=== PATIENT | female | born 1940 | race Caucasian/White ===

== ENCOUNTER 2016-06-27 16:16 | Observation (INO) | payer MEDICARE, BC ==
[2016-06-27 16:36] LABS: Hematocrit 44 % (35-47); Hemoglobin 14.3 g/dl (12.0-16.0); Mean Corpuscular HGB Conc 33 g/dl (31-36); Mean Corpuscular Hemoglobin 30 pg (27-31); Mean Corpuscular Volume 93 fL (80-97); Mean Platelet Volume 8 um3 (7.4-10.4); Red Blood Count 4.74 10^6/ul (4.0-5.4); Red Cell Distribution Width 14 % (10.5-15); White Blood Count 7.9 10^3/ul (3.5-10.8)
[2016-06-27 16:38] LABS: Add Diff/Slide Review? Manual Diff Added; Comments Flag Yes
--- NOTE | 2016-06-27 16:40 | RAD ---
HISTORY: Neurological changes COMPARISONS: January 09, 2015 TECHNIQUE: Multiple contiguous axial CT scans were obtained of the head without intravenous contrast. FINDINGS: HEMORRHAGE/INFARCT: There is no hemorrhage or acute infarct. MASSES/SHIFT: There is no mass or shift. EXTRA-AXIAL SPACES: There are no extra-axial fluid collections. SULCI AND VENTRICLES: The sulci and ventricles are normal in size and position for the patient's stated age. CEREBRUM: There are chronic appearing lacunar infarcts of the left basal ganglia BRAINSTEM: There are no focal parenchymal abnormalities. CEREBELLUM: There are no focal parenchymal abnormalities. VESSELS: The vessels are grossly normal. PARANASAL SINUSES: The paranasal sinuses are clear. ORBITS: The orbits are unremarkable. BONES AND SOFT TISSUE: No bone or soft tissue abnormalities are noted. OTHER: None IMPRESSION: NO ACUTE INTRACRANIAL PATHOLOGY. CHRONIC SMALL VESSEL ISCHEMIC CHANGES. PRELIMINARY FINDINGS WERE DISCUSSED WITH DR. CANSECO IN THE EMERGENCY DEPARTMENT AT APPROXIMATE 4:37 PM ON JUNE 27, 2016.
[2016-06-27 16:52] LABS: Albumin 3.8 g/dL (3.2-5.2); BUN/Creatinine Ratio 19.8 (8-20); Calcium 9.2 mg/dL (8.6-10.3); EGFR African American 82.3 (>60); Globulin 3.3 g/dL (2-4); HDL Cholesterol 71.1 mg/dL; Total Bilirubin 0.5 mg/dL (0.2-1.0); Total Protein 7.1 g/dL (6.4-8.9)
[2016-06-27 16:53] LABS: Troponin I 0.01 ng/mL (<0.04)
[2016-06-27 16:56] LABS: Eosinophils % 2 % (0-6); Neutrophil % 62 % (38-83); Reactive Lymph % 2 % (0-6)
[2016-06-27 16:57] LABS: RBC Morphology Normal (Normal)
[2016-06-27 16:59] LABS: Potassium 4.1 mmol/L (3.5-5.0)
[2016-06-27] MEDS ORDERED: Iohexol 350* (CONTRAST) 500 ML MDV IV ONE (17:09)
--- NOTE | 2016-06-27 17:34 | RAD ---
Indication: Slurred speech, LEFT arm numbness. Code forrest. Comparison: January 20, [address] and January 18, 2015 chest radiograph. Technique: Upright AP 1701 hours Report: Elevated lung volumes with both mild coarsening and rarefaction of the interstitial markings. No alveolar consolidation, focal pulmonary lesion, pleural effusion, pneumothorax. Negative for cardiomegaly. Unremarkable central pulmonary vasculature. Mildly tortuous descending thoracic aorta. IMPRESSION: Stigmata of chronic obstructive pulmonary disease. No acute cardiopulmonary process evident.
--- NOTE | 2016-06-27 17:49 | RAD ---
INDICATION: Episode of LEFT arm weakness and difficulty with speech. COMPARISON: Noncontrast head CT of the same date. TECHNIQUE: Multidetector CT images were obtained from the aortic arch to the vertex of the head with 80 mL Omnipaque 350 IV contrast. Arterial phase of enhancement. Multiplanar reformation including maximum intensity projection. 3-D arterial volume rendering. Stenosis estimations based on denominator of distal arterial diameter. NECK ANGIOGRAM REPORT: Centrilobular emphysema at the visualized lung apices. Normal configuration of the branch vessels at the aortic arch. Calcific and noncalcific plaque results in approximate 30% short segment stenosis at the ostium of the LEFT subclavian artery. Calcific and noncalcific plaque results in approximate 50% ostial stenosis at the RIGHT external carotid artery. Negative for hemodynamic significant RIGHT internal carotid artery stenosis. Minimal calcific and noncalcific plaque at the LEFT carotid bifurcation and proximal internal carotid artery without hemodynamic significant stenosis resulting. Tortuous LEFT internal carotid artery. Patent codominant vertebral arteries with both contributing to the basilar artery. NECK ANGIOGRAM IMPRESSION: Mild atherosclerotic disease. Negative for hemodynamic significant carotid stenosis. HEAD ANGIOGRAM REPORT: Calcific plaque at the bilateral carotid siphons results in up to 40% short segment stenosis on the RIGHT and 30% short segment stenosis on the LEFT. Unremarkable patent bilateral M1 and M2 middle cerebral artery segments as well as the A1 and A2 anterior cerebral artery segments. No definitive anterior communicating artery visualized. Unremarkable cerebellar artery origins and basilar artery. Patent bilateral posterior cerebral arteries are supplied primarily by the posterior circulation with normal variant hypoplastic posterior communicating arteries. No intracranial aneurysm or vascular malformation evident. HEAD ANGIOGRAM IMPRESSION: 1. Calcific plaque at the bilateral carotid siphons results in up to 40% short segment stenosis on the RIGHT and 30% short segment stenosis on the LEFT. 2. No hemodynamic significant central intracranial arterial stenosis or occlusion evident. CPT II: CPT II Codes: 3100F
[2016-06-27 17:51] LABS: Urine Bacteria Absent (Absent); Urine Bilirubin Negative (Negative); Urine Glucose Negative (Negative); Urine Nitrite Negative (Negative)
--- NOTE | 2016-06-27 18:10 | ED ---
Bravo Ross Karl, scribed for Sarkis Canseco MD on 06/27/16 at 1627 . Neurological HPI - HPI Summary HPI Summary: Pt is a 75 y/o female that presents to the ED c/o left arm numbness and speech changes. Pt reported that she bent over to pick something up at approx 14:30 today and as she stood up her arm began "tingling like crazy like it was asleep " and she realized it was limp and could not pick it up. The pt then called out to her who said that when she called out to him her speech did not seem normal. Pt also reported slight vision changes but all of her symptoms have since resolved. - History of Current Complaint Chief Complaint: EDNeurologicalDeficit Stated Complaint: SLURRED SPEECH/LT ARM NUMBNESS Time Seen by Provider: 06/27/16 16:20 Hx Obtained From: Patient, Family/Library Page - Onset/Duration: Sudden Onset, Started hours ago, Resolved Timing: Intermittent Episodes Lasting: - minutes Onset Severity: Moderate Current Severity: None Neurological Deficit Location: LUE Character: Weak, Numbness/Tingling, Impaired Speech Episode Lasting: Seconds/Minutes Associated Signs and Symptoms: Positive: Visual Changes, Weakness - Additional Pertinent History Primary Care Physician: [id number] - Allergy/Home Medications Allergies/Adverse Reactions: Allergies Allergy/AdvReac Type Severity Reaction Status Date / Time Isosorbide Allergy Dizziness Verified 05/24/15 11:45 Meperidine [From Demerol HCl] Allergy Headache Verified 05/24/15 11:45 Propranolol [From Inderal] Allergy "BLOOD Verified 05/24/15 11:45 PRESSURE BOTTOMED OUT" Sulfa Antibiotics Allergy Hives Verified 05/24/15 11:45 PMH/Surg Hx/FS Hx/Imm Hx Previously Healthy: Yes Endocrine/Hematology History: Denies: Hx Anticoagulant Therapy, Hx Blood Disorders, Hx Blood Transfusions, Hx Bone Marrow Disease, Hx Diabetes, Hx Systemic Lupus Erythematosus, Hx Sickle Cell Disease, Hx Thyroid Disease, Hx Anemia, Hx Unexplained Bleeding, Other Endocrine/Hematological Disorders Cardiovascular History: Reports: Hx Syncope - with this illness, Other Cardiovascular Problems/Disorders - STATES HAS LOW BLOOD PRESSURE AND LOW PULSE Denies: Hx Aneurysm, Hx Angina, Hx Angioplasty, Hx Auto Implanted Cardiovert Defib, Hx Cardiac Arrest, Hx Cardiomegaly, Hx Congenital Heart Disease, Hx Congestive Heart Failure, Hx Coronary Artery Disease, Hx Deep Vein Thrombosis, Hx Embolism, Hx Hypercholesterolemia, Hx Hypotension, Hx Hypertension, Hx Pacemaker/ICD, Hx Peripheral Vascular Disease, Hx Rheumatic Fever, Hx Valvular Heart Disease Respiratory History: Denies: Hx Asthma, Hx Chronic Bronchitis, Hx Chronic Obstructive Pulmonary Disease (COPD), Hx Cystic Fibrosis, Hx Lung Cancer, Hx Pleural Effusion, Hx Pneumonia, Hx Pulmonary Edema, Hx Pulmonary Embolism, Hx Seasonal Allergies, Hx Sleep Apnea, Other Respiratory Problems/Disorders GI History: Denies: Hx Cirrhosis, Hx Crohn's Disease, Hx Diverticulosis, Hx Gall Bladder Disease, Hx Gastroesophageal Reflux Disease, Hx Gastrointestinal Bleed, Hx Hiatal Hernia, Hx Irritable Bowel, Hx Jaundice, Hx Obstructive Bowel, Hx Ileostomy, Hx Pyloric Stenosis, Hx Ulcer, Other GI Disorders History: Denies: Hx Acute Renal Failure, Hx Benign Prostatic Hyperplasia, Hx Chronic Renal Failure, Hx Dialysis, Hx Kidney Infection, Hx Kidney Stones, Hx Renal Disease, Other Problems/Disorders Musculoskeletal History: Reports: Hx Arthritis - RIGHT KNEE, Hx Orthopedic Injury - right knee patella fx Denies: Hx Back Problems, Hx Bursitis, Hx Congenital Bone Abnormalities, Hx Fibromyalgia, Hx Gout, Hx Osteoporosis, Hx Scoliosis, Hx Tendonitis, Other Musculoskeletal History Sensory History: Reports: Hx Cataracts, Hx Contacts or Glasses - GLASSES Denies: Hx Eye Injury, Hx Eye Prosthesis, Hx Glaucoma, Hx Legally Blind, Hx Macular Degeneration, Hx Vision Problem, Hx Deafness, Hx Hearing Aid, Hx Hearing Problem, Other Sensory Impairments Opthamlomology History: Reports: Hx Cataracts, Hx Contacts or Glasses - GLASSES Denies: Hx Eye Injury, Hx Eye Prosthesis, Hx Glaucoma, Hx Legally Blind, Hx Macular Degeneration, Hx Vision Problem, Other Sensory Impairments Neurological History: Reports: Hx Headaches - from this current illness Denies: Hx Dementia, Hx Developmental Delay, Hx Migraine, Hx Nerve Disease, Hx Seizures, Hx Spinal Cord Injury, Hx Transient Ischemic Attacks (TIA), Other Neuro Impairments/Disorders Psychiatric History: Denies: Hx Anxiety, Hx Attention Deficit Hyperactivity Disorder, Hx Eating Disorder, Hx Depression, Hx Panic Disorder, Hx Post Traumatic Stress Disorder, Hx Inpatient Treatment, Hx Community Mental Health Tx, Hx Schizophrenia, Hx Bipolar Disorder, Hx Suicide Attempt, Hx of Violent Episodes Against Others, Hx Substance Abuse, Other Psychiatric Issues/Disorders - Cancer History Hx Radiation Therapy: No Hx Palliative Cancer Treatment: No - Surgical History Surgery Procedure, Year, and Place: 12/23/2012-RT. KNEE ARTHROSCOPY-BIG FLATS- [place]. 01/09/2015-abd surgery- benign colon POLYP- hemicolectomy-[facility] [place]. 2014-BILATERAL CATARACTS REMOVED-[facility] [place]. FRACTURED ELBOW- 36 YEARS AGO Hx Anesthesia Reactions: No Infectious Disease History: Denies: Hx Clostridium Difficile, Hx Hepatitis, Hx Human Immunodeficiency Virus (HIV), Hx of Known/Suspected MRSA, Hx Shingles, Hx Tuberculosis, Hx Known/ Suspected VRE, Hx Known/Suspected VRSA, History Other Infectious Disease, Traveled Outside the [place] in Last 30 Days - Family History Known Family History: Positive: Other - [place] - father - Social History Alcohol Use: Rare Substance Use Type: Reports: None Hx Tobacco Use: Yes Smoking Status (MU): Former Smoker Type: Cigarettes Amount Used/How Often: 1/2 PPD X 40 YEARS Length of Time of Smoking/Using Tobacco: whole life Have You Smoked in the Last Year: Yes Review of Systems Constitutional: Negative Eyes: Other - visual changes ENT: Negative Cardiovascular: Negative Respiratory: Negative Gastrointestinal: Negative Genitourinary: Negative Musculoskeletal: Negative Skin: Negative Positive: Weakness - left arm, Paresthesia - left arm, Slurred Speech Psychological: Normal All Other Systems Reviewed And Are Negative: Yes Physical Exam Triage Information Reviewed: Yes Vital Signs On Initial Exam: Temp 99.2 F 06/27/16 16:20 Pulse 77 06/27/16 16:20 Resp 20 06/27/16 16:20 BP 144/86 06/27/16 16:20 Pulse Ox 98 06/27/16 16:20 Vital Signs Reviewed: Yes Appearance: Positive: Well-Appearing, No Pain Distress Skin: Positive: Warm, Skin Color Reflects Adequate Perfusion, Dry Head/Face: Positive: Normal Head/Face Inspection Eyes: Positive: EOMI, ORACIO ENT: Positive: Normal ENT inspection Neck: Positive: Supple, Nontender Respiratory/Lung Sounds: Positive: Clear to Auscultation, Breath Sounds Present Cardiovascular: Positive: RRR Abdomen Description: Positive: Nontender, Soft Bowel Sounds: Positive: Present Musculoskeletal: Positive: Normal, Strength/ROM Intact Neurological: Positive: Normal, Sensory/Motor Intact, Alert, Oriented to Person Place, Time Psychiatric: Positive: Affect/Mood Appropriate Diagnostics - Vital Signs Vital Signs Temp Pulse Resp BP Pulse Ox 06/27/16 16:42 96 06/27/16 16:40 73 97 06/27/16 16:38 168/138 06/27/16 16:20 99.2 F 77 20 144/86 98 - Laboratory Lab Results: Lab Results 06/27/16 06/27/16 06/27/16 Range/Units 16:28 16:28 16:28 WBC 7.9 (3.5-10.8) 10^3/ul RBC 4.74 (4.0-5.4) 10^6/ul Hgb 14.3 (12.0-16.0) g/dl Hct 44 (35-47) % MCV 93 (80-97) fL MCH 30 (27-31) pg MCHC 33 (31-36) g/dl RDW 14 (10.5-15) % Plt Count 250 (150-450) 10^3/ul MPV 8 (7.4-10.4) um3 Absolute Neuts (auto) 4.6 (1.5-7.7) 10^3/ul Absolute Lymphs (auto) 2.5 (1.0-4.8) 10^3/ul Absolute Monos (auto) 0.6 (0-0.8) 10^3/ul Absolute Eos (auto) 0.2 (0-0.6) 10^3/ul Absolute Basos (auto) 0 (0-0.2) 10^3/ul Absolute Nucleated RBC 0.01 10^3/ul Neutrophils % 62 (38-83) % Lymphocytes % 31 (25-47) % Reactive Lymphs % 2 (0-6) % Monocytes % 2 (0-13) % Eosinophils % 2 (0-6) % Basophils % 1 (0-2) % Normal RBC Morphology Normal (Normal) INR (Anticoag Therapy) 0.86 L (0.89-1.11) APTT 27.6 (26.0-36.3) seconds Sodium 134 (133-145) mmol/L Potassium 4.1 (3.5-5.0) mmol/L Chloride 104 (101-111) mmol/L Carbon Dioxide 26 (22-32) mmol/L Anion Gap 4 (2-11) mmol/L BUN 17 (6-24) mg/dL Creatinine 0.86 (0.51-0.95) mg/dL Est GFR ( Amer) 82.3 (>60) Est GFR (Non-Af Amer) 64.0 (>60) BUN/Creatinine Ratio 19.8 (8-20) Glucose 97 (70-100) mg/dL POC Glucose (mg/dL) (74-106) mg/dL Lactic Acid (0.5-2.0) mmol/L Calcium 9.2 (8.6-10.3) mg/dL Total Bilirubin 0.50 (0.2-1.0) mg/dL AST 23 (13-39) U/L ALT 16 (7-52) U/L Alkaline Phosphatase 83 (34-104) U/L Troponin I 0.01 (<0.04) ng/mL Total Protein 7.1 (6.4-8.9) g/dL Albumin 3.8 (3.2-5.2) g/dL Globulin 3.3 (2-4) g/dL Albumin/Globulin Ratio 1.2 (1-3) Triglycerides 124 mg/dL Cholesterol 239 mg/dL LDL Cholesterol 143 mg/dL HDL Cholesterol 71.1 mg/dL Urine Color Urine Appearance Urine pH (5-9) Ur Specific [place] (1.010-1.030) Urine Protein (Negative) Urine Ketones (Negative) Urine Blood (Negative) Urine Nitrate (Negative) Urine Bilirubin (Negative) Urine Urobilinogen (Negative) Ur Leukocyte Esterase (Negative) Urine WBC (Auto) (Absent) Urine RBC (Auto) (Absent) Ur Squamous Epith Cells (Absent) Urine Bacteria (Absent) Urine Glucose (Negative) Blood Type Antibody Screen 06/27/16 06/27/16 06/27/16 Range/Units 16:28 16:28 16:43 WBC (3.5-10.8) 10^3/ul RBC (4.0-5.4) 10^6/ul Hgb (12.0-16.0) g/dl Hct (35-47) % MCV (80-97) fL MCH (27-31) pg MCHC (31-36) g/dl RDW (10.5-15) % Plt Count (150-450) 10^3/ul MPV (7.4-10.4) um3 Absolute Neuts (auto) (1.5-7.7) 10^3/ul Absolute Lymphs (auto) (1.0-4.8) 10^3/ul Absolute Monos (auto) (0-0.8) 10^3/ul Absolute Eos (auto) (0-0.6) 10^3/ul Absolute Basos (auto) (0-0.2) 10^3/ul Absolute Nucleated RBC 10^3/ul Neutrophils % (38-83) % Lymphocytes % (25-47) % Reactive Lymphs % (0-6) % Monocytes % (0-13) % Eosinophils % (0-6) % Basophils % (0-2) % Normal RBC Morphology (Normal) INR (Anticoag Therapy) (0.89-1.11) APTT (26.0-36.3) seconds Sodium (133-145) mmol/L Potassium (3.5-5.0) mmol/L Chloride (101-111) mmol/L Carbon Dioxide (22-32) mmol/L Anion Gap (2-11) mmol/L BUN (6-24) mg/dL Creatinine (0.51-0.95) mg/dL Est GFR ( Amer) (>60) Est GFR (Non-Af Amer) (>60) BUN/Creatinine Ratio (8-20) Glucose (70-100) mg/dL POC Glucose (mg/dL) 94 (74-106) mg/dL Lactic Acid 0.9 (0.5-2.0) mmol/L Calcium (8.6-10.3) mg/dL Total Bilirubin (0.2-1.0) mg/dL AST (13-39) U/L ALT (7-52) U/L Alkaline Phosphatase (34-104) U/L Troponin I (<0.04) ng/mL Total Protein (6.4-8.9) g/dL Albumin (3.2-5.2) g/dL Globulin (2-4) g/dL Albumin/Globulin Ratio (1-3) Triglycerides mg/dL Cholesterol mg/dL LDL Cholesterol mg/dL HDL Cholesterol mg/dL Urine Color Urine Appearance Urine pH (5-9) Ur Specific [place] (1.010-1.030) Urine Protein (Negative) Urine Ketones (Negative) Urine Blood (Negative) Urine Nitrate (Negative) Urine Bilirubin (Negative) Urine Urobilinogen (Negative) Ur Leukocyte Esterase (Negative) Urine WBC (Auto) (Absent) Urine RBC (Auto) (Absent) Ur Squamous Epith Cells (Absent) Urine Bacteria (Absent) Urine Glucose (Negative) Blood Type A Positive Antibody Screen Negative 06/27/16 Range/Units 17:18 WBC (3.5-10.8) 10^3/ul RBC (4.0-5.4) 10^6/ul Hgb (12.0-16.0) g/dl Hct (35-47) % MCV (80-97) fL MCH (27-31) pg MCHC (31-36) g/dl RDW (10.5-15) % Plt Count (150-450) 10^3/ul MPV (7.4-10.4) um3 Absolute Neuts (auto) (1.5-7.7) 10^3/ul Absolute Lymphs (auto) (1.0-4.8) 10^3/ul Absolute Monos (auto) (0-0.8) 10^3/ul Absolute Eos (auto) (0-0.6) 10^3/ul Absolute Basos (auto) (0-0.2) 10^3/ul Absolute Nucleated RBC 10^3/ul Neutrophils % (38-83) % Lymphocytes % (25-47) % Reactive Lymphs % (0-6) % Monocytes % (0-13) % Eosinophils % (0-6) % Basophils % (0-2) % Normal RBC Morphology (Normal) INR (Anticoag Therapy) (0.89-1.11) APTT (26.0-36.3) seconds Sodium (133-145) mmol/L Potassium (3.5-5.0) mmol/L Chloride (101-111) mmol/L Carbon Dioxide (22-32) mmol/L Anion Gap (2-11) mmol/L BUN (6-24) mg/dL Creatinine (0.51-0.95) mg/dL Est GFR ( Amer) (>60) Est GFR (Non-Af Amer) (>60) BUN/Creatinine Ratio (8-20) Glucose (70-100) mg/dL POC Glucose (mg/dL) (74-106) mg/dL Lactic Acid (0.5-2.0) mmol/L Calcium (8.6-10.3) mg/dL Total Bilirubin (0.2-1.0) mg/dL AST (13-39) U/L ALT (7-52) U/L Alkaline Phosphatase (34-104) U/L Troponin I (<0.04) ng/mL Total Protein (6.4-8.9) g/dL Albumin (3.2-5.2) g/dL Globulin (2-4) g/dL Albumin/Globulin Ratio (1-3) Triglycerides mg/dL Cholesterol mg/dL LDL Cholesterol mg/dL HDL Cholesterol mg/dL Urine Color Straw Urine Appearance Clear Urine pH 6.0 (5-9) Ur Specific [place] 1.005 L (1.010-1.030) Urine Protein Negative (Negative) Urine Ketones Negative (Negative) Urine Blood Negative (Negative) Urine Nitrate Negative (Negative) Urine Bilirubin Negative (Negative) Urine Urobilinogen Negative (Negative) Ur Leukocyte Esterase 1+ H (Negative) Urine WBC (Auto) Trace(0-5/hpf) (Absent) Urine RBC (Auto) Trace(0-2/hpf) (Absent) Ur Squamous Epith Cells Present H (Absent) Urine Bacteria Absent (Absent) Urine Glucose Negative (Negative) Blood Type Antibody Screen Result Diagrams: 06/27/16 16:28 06/27/16 16:28 Lab Statement: Any lab studies that have been ordered have been reviewed, and results considered in the medical decision making process. - Radiology CXR Xray Interpretation: Positive (See Comments) Radiology Interpretation Completed By: Radiologist - IMPRESSION: Stigmata of chronic obstructive pulmonary disease. No acute cardiopulmonary process evident. < Electronically signed by Dominik Cagle MD in [place]> 06/27/161729 Dictated By: Dominik Cagle MD Dictated Date/Time: 06/27/161729 Transcribed Date/Time: 11/06 - CT CT Brain CT Interpretation: Positive (See Comments) CT Interpretation Completed By: Radiologist - IMPRESSION: NO ACUTE INTRACRANIAL PATHOLOGY. CHRONIC SMALL VESSEL ISCHEMIC CHANGES. PRELIMINARY FINDINGS WERE DISCUSSED WITH DR. CANSECO IN THE EMERGENCY DEPARTMENT AT APPROXIMATE 4:37 PM ON JUNE 27, 2016. <Electronically signed by Luis Johnson MD in [place]> 06/27/161636 Dictated By: Luis Johnson MD Dictated Date/Time: 06/27/161636 Transcribed Date/Time: 06/27/16 1635 CTA Head/Neck CT Interpretation: Positive (See Comments) CT Interpretation Completed By: Radiologist - NECK ANGIOGRAM IMPRESSION: Mild atherosclerotic disease. Negative for hemodynamic significant carotid stenosis. HEAD ANGIOGRAM IMPRESSION: 1. Calcific plaque at the bilateral carotid siphons results in up to 40% short segment stenosis on the RIGHT and 30% short segment stenosis on the LEFT. 2. No hemodynamic significant central intracranial arterial stenosis or occlusion evident. CPT II: CPT II Codes: 3100F <Electronically signed by Dominik Cagle MD in [place]> 06/27/161745 Dictated By: Dominik Cagle MD Dictated Date/Time: 06/27/161745 Transcribed Date/Time: 06/27/16 1734 - EKG 16:16 Cardiac Rate: NL EKG Rhythm: Sinus Rhythm - at 60 bpm Ectopy: None EKG Interpretation: PAC Course/Dx - Course Assessment/Plan: Code Syed was called at 16:25. DISCUSSED WITH NEUROLOGY, DR HURTADO. ADMIT HOSPITALIST STABLE. - Diagnoses Provider Diagnoses: TIA (transient ischemic attack) - Physician Notifications Discussed Care of Patient With: Dr. Hurtado (Neurology) at 16:35. Dr. Sylvester ( Hospitalist) at 15:45 Discharge - Discharge Plan Condition: Stable Disposition: ADMITTED TO [facility] Referrals: Misha Joshi MD [Primary Care Provider] - The documentation as recorded by the Bravo [email or web address] accurately reflects the service I personally performed and the decisions made by me, Sarkis Canseco MD.
[2016-06-27] MEDS ORDERED: Enoxaparin(*) 40 MG/0.4 ML SYR SUBCUT SCH (20:00)
[2016-06-27] MEDS: Aspirin EC TAB* 325 MG PO SCH (20:58)
--- NOTE | 2016-06-27 22:14 | RAD ---
Indication: Episode of slurred speech and LEFT arm weakness. Comparison: June 27, 2016 CT angiogram head and neck. CT brain of the same date. Technique: ViXS Systemsa 1.5 Helen [id number] with GEM suite. MRI brain without contrast. Report: Diffusion series is negative for acute or subacute ischemia. Susceptibility series is negative for stigmata of hemosiderin deposition to indicate previous hemorrhage. Mild to moderate prominence of the cerebral sulci. Unremarkable cerebellar fissures, ventricles, and basal cisterns. Bilateral mildly prominent perivascular spaces at the basal ganglia. Multiple bilateral small FLAIR and T2 hyperintensities within the periventricular and subcortical white matter of the cerebral hemispheres with dominant 0.5 cm lesion at the periventricular white matter of the RIGHT parietal lobe. No intra or extra-axial fluid collection evident. Negative for mass effect. Preserved major intracranial flow-voids. Unremarkable orbital contents. Grossly clear visualized paranasal sinuses and mastoid air spaces. No suspicious lesion of the calvarium or skull base. Small RIGHT 2.0 x 1.4 x 0.3 cm sharply circumscribed scalp lesion which is isointense with fat on all pulse sequences consistent with a lipoma. IMPRESSION: 1. Mild to moderate involutional change. 2. Small nonspecific white matter hyperintensities throughout the cerebral hemisphere most likely representing stigmata of chronic small vessel ischemic disease. 3. No evidence for acute or subacute ischemia.
[2016-06-27] MEDS: NS 0.9% 1000 ML* 1,000 ML IV SCH (22:28)
--- NOTE | 2016-06-28 02:16 | HP ---
HISTORY AND PHYSICAL: DATE OF ADMISSION: 06/27/16 PRIMARY CARE PHYSICIAN: Misha Joshi MD CHIEF COMPLAINT: Left arm numbness and weakness, slurred speech. HISTORY OF PRESENT ILLNESS: Ms. Vela is a pleasant 75-year-old female with a past medical history of CAD, status post [place] and angioplasty; hypertension; and osteoporosis who presented to the hospital with an episode of left arm numbness. She states that she was in her usual state of health. This afternoon , she states she bent over to bean picker something up and when she stood up, she noticed that her left hand and lower arm felt numb. When she went to move, she realized she could not and she needed to use her right arm to reach over to grab the left. She became very afraid and she called in her . She also noted that her vision changed slightly. She says it was not blurry, but it was "gritty" as if she was really tired. Her also noticed that her speech was slightly slurred and did not notice any facial droop. Maybe 30 seconds after the entered the room, the symptoms resolved. He feels that it probably lasted for about 2 minutes in total after which, she sat down. She is very frightened and called Dr. Joshi' office and spoke to one of the nurses who told her to come straightaway to the ED. The patient states she has felt well prior to this. No recent fever, chills, chest pain, or shortness of breath. No nausea, vomiting, diarrhea, constipation, or dysuria. No hematuria or bright blood per rectum. She has had good p.o. intake. PAST MEDICAL HISTORY: CAD, status post [place] and angioplasty; hypertension; and osteoporosis. PAST SURGICAL HISTORY: Repair of perforated bowel surgery. HOME MEDICATIONS: 1. Aspirin 81 mg by mouth daily. 2. Alendronate 70 mg by mouth weekly on Mondays. 3. Diltiazem 120 mg by mouth daily. 4. Calcium plus D 1 tablet by mouth daily. ALLERGIES: He reports allergies to ISOSORBIDE, MEPERIDINE, PROPRANOLOL, and SULFA ANTIBIOTICS. FAMILY HISTORY: Significant for a father with lung cancer. A brother with lung cancer. Mother of meningitis. SOCIAL HISTORY: The patient is a former [id number] smoker. Denies any illicit drug use. Rare alcohol use. REVIEW OF SYSTEMS: A 12-point review of systems is negative except for those noted in the HPI. PHYSICAL EXAMINATION GENERAL: The patient is a pleasant elderly female, lying in bed, in no apparent distress. VITAL SIGNS: On admission temperature 99.2, heart rate of 77, respiratory rate of 20, O2 saturation 99% on room air, and blood pressure 144/86. HEENT: Moist mucous membranes. Anicteric sclerae. NECK: No cervical adenopathy. LUNGS: Clear to auscultation bilaterally. No wheezes, rales, or rhonchi. CARDIOVASCULAR: Regular rate and rhythm. S1 and S2 present. No murmurs, gallops, or rubs. ABDOMEN: Soft, nontender, and nondistended. Bowel sounds positive. EXTREMITIES: No cyanosis, clubbing, or edema. NEUROLOGIC: The patient is alert and oriented x3. Cranial nerves II through XII grossly intact. Strength is 5/5 throughout all upper and lower extremities. Sensation is intact and symmetric bilaterally. No pronator drift noted. SKIN: Warm, dry, and well perfused. DIAGNOSTIC STUDIES/LAB DATA: White blood cell count of 7.9, hematocrit of 44, and platelets of 250. INR of 0.86. Sodium of 134, potassium 4.1, chloride of 104, carbon dioxide of 26, BUN of 17, creatinine 0.86, and glucose of 97. LFTs are within normal limits. Troponin 0.01. LDL of 143. Urinalysis negative for infection. Chest x-ray, personally reviewed, shows hyperinflated lungs and no acute process. EKG, personally reviewed, shows normal sinus rhythm, one PAC, and no acute ischemic changes. CT of the brain shows no acute changes. CTA of the head shows calcific plaques at bilateral carotid siphons with 40% short- segment stenosis on the right and 30% short-segment stenosis on the left. ASSESSMENT AND PLAN: Transient ischemic attack in a 75-year-old female with history of coronary artery disease, status post myocardial infarction and angioplasty; hypertension; and osteoporosis. 1. Transient ischemic attack: The symptoms lasted for about 2 minutes and have resolved and has not recurred since. I will start the patient on a full dose aspirin, increase from her home baby aspirin for now. Her LDL, which is not fastening, is elevated at 143. She states that she has had elevated cholesterol on previous labs that have been taken prior to this admission. We will start her on atorvastatin 40 mg by mouth nightly. We will check a hemoglobin A1c. I will order an MRI of the brain as well as an echocardiogram. Monitor her on telemetry for the night. Dr. Hurtado was aware of the patient in the emergency department and electronic consult has been placed and he will plan on seeing the patient in the morning. 2. Hypertension: Continue home diltiazem 120 mg by mouth daily. 3. Coronary artery disease: Aspirin as above. 4. DVT prophylaxis: Lovenox subcu. 5. Code status: Discussed with the patient and family, the patient would like to be a full code. TIME SPENT: Total time spent on this admission 40 minutes, with over half the time spent [id number] with the patient counseling and coordinating care. CC: Dr. Joshi* [id number]/[facility] #: [id number] STEPHANE
[2016-06-28] MEDS: NS 0.9% 1000 ML* 1,000 ML IV SCH (05:20)
[2016-06-28 06:22] LABS: HDL Cholesterol 62.7 mg/dL
[2016-06-28] MEDS: Aspirin EC TAB* 325 MG PO SCH (08:08)
[2016-06-28] MEDS ORDERED: Diltiazem CD CAP* 120 MG PO SCH (09:00)
--- NOTE | 2016-06-28 12:25 | ECHO ---
Patient: CRAIG PERRY [facility] Rec#: [id number] : 1940 Date: 06/28/2016 Age: 75y Height: 162.56 cm / 64.0 in Weight: 53.52 kg / 118.0 lbs Sex: F BSA: 1.56 Room#: 442 Admit Date#: 06/27/2016 Type: Inpatient Referring: NAOMIE BROWN MD Reading: Aristides Main MD Skating Carhop: Sundeep Dalton RDCS Transthoracic Echocardiogram Indication: Cva.Tia BP: 121/66 HR: 72 Rhythm: NSR Findings History: Cad,mi, pci, htn, former, smoker. Technical Comments: The study quality is fair. Completed 0900 The study is technically limited due to patient body habitus. The study is technically limited due to the patient's smoking history. Left Ventricle: The left ventricular chamber size is normal. Left ventricular systolic function is at the lower limits of normal. The estimated ejection fraction is 50-55%. Abnormal left ventricular diastolic filling is observed, consistent with impaired relaxation. Left Atrium: The left atrial chamber size is normal. Right Ventricle: The right ventricular cavity size is normal. The right ventricular global systolic function is normal. Right Atrium: The right atrial cavity size is normal. Aortic Valve: The aortic valve is trileaflet. The aortic valve leaflets are mildly thickened. Moderate aortic leaflet calcification is visualized. There is no evidence of aortic regurgitation. There is no evidence of aortic stenosis. Mitral Valve: There is mitral annular calcification. Mild mitral leaflet calcification is visualized. There is no evidence of mitral regurgitation. There is no evidence of mitral stenosis. Tricuspid Valve: The tricuspid valve appears normal in structure and function. There is no evidence of tricuspid valve regurgitation. Pulmonic Valve: The pulmonic valve structure is not well visualized. Pericardium: There is no pericardial effusion. No pleural effusion is present. Aorta: The ascending aorta is not well visualized. There is no dilatation of the aortic arch. There is no dilation of the aortic root. Pulmonary Artery: The main pulmonary artery is not well visualized. Venous: The inferior vena cava appears normal in size. There is a greater than 50% respiratory change in the inferior vena cava dimension. Summary: There are changes noted when compared to the previous study done on 01/10/2015, now the aortic root is normal in size instead of mildly dilated then.Otherwise no overt sig changes. Conclusions The left ventricular chamber size is normal. Left ventricular systolic function is at the lower limits of normal. The estimated ejection fraction is 50-55%. Abnormal left ventricular diastolic filling is observed, consistent with impaired relaxation. Moderate aortic leaflet calcification is visualized. Measurements Name Value Normal Range RVIDd (AP) 2D 1.9 cm (0.9 - 2.6) RVDdMajor (2D) 2.3 cm (2.2 - 4.4) RAd ISD 4CH 3.6 cm (3.4 - 4.9) RA (A4C)W 3.2 cm (2.9 - 4.6) IVSd (2D) 0.9 cm (0.6 - 1) LVPWd (2D) 0.9 cm (0.6 - 1) LVIDd (2D) 3.9 cm (3.6 - 5.4) LVIDs (2D) 3.2 cm - Aortic Annulus 2 cm (1.4 - 2.6) Ao root diameter (2D) 3.3 cm (2.1 - 3.5) Aortic arch 1 cm (1.8 - 3.4) LA dimension (AP) 2D 3.8 cm (2.3 - 3.8) LAd ISD 4CH 5.7 cm (2.9 - 5.3) LA ISD 4CH W 2.8 cm (2.5 - 4.5) Name Value Normal Range LA ESV SP 4CH (A/L) 42 ml - LA ESV SP 2CH (A/L) 51 ml - LA ESV BP (A/L) 47 ml - LA ESV BP (A/L) index 30.19 ml/m2 - LA ESV SP 4CH (MOD) 37 ml - LA ESV SP 2CH (MOD) 47 ml - Name Value Normal Range MV E-wave Vmax 0.4 m/sec - MV deceleration time 149 msec - MV A-wave Vmax 0.71 m/sec - MV E:A ratio 0.56 ratio - LV septal e' Vmax 0.05 m/sec - LV lateral e' Vmax 0.05 m/sec - LV E:e' septal ratio 8 ratio - LV E:e' lateral ratio 8 ratio - Name Value Normal Range AV Vmax 0.9 m/sec - LVOT Vmax 0.6 m/sec - Name Value Normal Range IVC diameter 1.66 cm - Name Value Normal Range PV Vmax 0.6 m/sec -
[2016-06-28 13:08] VITALS: BP 141/75
[2016-06-28] MEDS ORDERED: Clopidogrel TAB* 75 MG PO ONE (14:16)
[2016-06-28] MEDS ORDERED: Atorvastatin* 40 MG TAB PO SCH (17:00)
--- NOTE | 2016-06-28 20:20 | CONS ---
AMENDED REPORT NOW INCLUDES DATE OF CONSULT - ESIGNED BEFORE ADJUSTMENT CONSULTATION REPORT: DATE OF CONSULT/DICTATION: 06/28/16 PATIENT OF: Yvon Lacy MD, and Dr. Joshi. HISTORY OF PRESENT ILLNESS: This is a 75-year-old right-handed woman who I am asked to evaluate for possible TIA. Last afternoon when after bending over and then standing up, she noticed her left hand and arm went numb and she could not use her left arm at all. She needed her right arm to lift her left arm up. There was no clear problem with leg or face according to the who was there shortly after it began, but she had some slight slurring of her speech and her vision was somehow affected. She said it was gritty but it is hard for her to describe and she was tired. There was no abnormal movements with this at all. She has had no prior strokes. PAST MEDICAL HISTORY: Includes coronary artery disease status post [place] and angioplasty. She has hypertension, osteoporosis and elevated cholesterol in the past. PAST SURGICAL HISTORY: She has had a repair of a perforated bowel surgery. MEDICATIONS: She is on: 1. Aspirin 81 mg daily. 2. Alendronate 70 mg by mouth q.weekly. 3. Diltiazem 120 mg daily. 4. Calcium plus D 1 tablet daily. ALLERGIES: She is allergic to ISOSORBIDE, MEPERIDINE, PROPRANOLOL, and SULFA ANTIBIOTICS. FAMILY HISTORY: Father had lung cancer and mother of meningitis. SOCIAL HISTORY: She is a former [id number]-[id number] smoker. Does not smoke currently. She does not drink or use drugs. REVIEW OF SYSTEMS: Negative in all 14 spheres other than the HPI. PHYSICAL EXAM: Temperature 97.8, pulse 68, respirations 16, and blood pressure 136/61. She is alert and oriented with normal speech and comprehension. Cranial nerves II through XII were intact. Fundi were benign. Motor exam revealed normal tone, strength, coordination. Negative pronator drift. Sensation intact to light touch. Reflexes were 1 and equal. Toes were downgoing. Neck: Supple. Chest: Clear. Cardiovascular: Regular rate and rhythm. Abdomen: Soft with positive bowel sounds. DIAGNOSTIC STUDIES/LAB DATA: Her CTA showed less than 50% stenosis in both carotids and no significant findings intracranially. Her MRI scan, I reviewed the films and these showed diffuse multivessel ischemic disease with mild atrophy. Echo is pending. There has been no evidence of AFib to this point. She has normal CBC. INR 0.86, PTT 27.6. CMP normal other than fasting cholesterol of 122. UA was negative. ASSESSMENT AND PLAN: I discussed with Mireille and her family that she has most likely a transient ischemic attack yesterday in the setting of small vessel ischemic disease secondary to her hypertension, her elevated cholesterol and her past history of smoking. It is unlikely that this is cardiac embolic, although conceivable. Her echo is pending and needs to be ordered. I would switch either to aspirin 325 but since this happened on the lower dose aspirin, it may be preferable to switch to Plavix. I will call Dr. Berger. She has also been started on statins, which is appropriate. Thank you for sharing her case. [id number]/[facility] #: [id number] STEPHANE
--- NOTE | 2016-06-29 06:16 | DS ---
DISCHARGE SUMMARY: DATE OF ADMISSION: 06/27/16 DATE OF DISCHARGE: 06/28/16 PRIMARY CARE PROVIDER: Misha Joshi MD PRIMARY DIAGNOSIS: Transient ischemic attack. SECONDARY DIAGNOSES: 1. History of coronary artery disease. 2. Hypertension. 3. Osteoporosis. MEDICATIONS ON DISCHARGE: 1. Plavix 75 mg daily. 2. Atorvastatin 40 mg daily. 3. Calcium/vitamin D 1 tab daily. 4. Diltiazem XT 120 daily. 5. Fosamax 70 mg monthly. Please note the addition of clopidogrel and atorvastatin. PERTINENT IMAGING PERFORMED DURING HOSPITAL STAY: 1. Head and neck CTA - impression: Calcific plaque at the bilateral carotid siphons resulting up to 40% short-segment stenosis on the right and 30% short- segment stenosis on the left. No hemodynamic significant central intracranial arterial stenosis. 2. Brain MRI - impression: [id number] involutional change. Small nonspecific white matter hyperintensity throughout the cerebral hemisphere, most likely representing stigmata of chronic small vessel ischemic disease. No evidence for acute or subacute ischemia. 3. Transthoracic echocardiogram - impression: Left ventricular chamber size is normal. LVEF 50% to 55%. Abnormal left ventricular diastolic filling is observed consistent with impaired relaxation. Moderate aortic leaflet calcification is visualized. PERTINENT LABORATORY DATA: Hemoglobin A1c 5.9. Triglycerides 113, total cholesterol 207, LDL 122, and HDL 62.7. HISTORY OF PRESENT ILLNESS AND HOSPITAL COURSE: This is a pleasant 75-year-old female with the past medical history as outlined in the history of present illness on the day of admission including CAD, hypertension, osteoporosis, and history of smoking use presented to the hospital after less than 2 minutes of left arm numbness and loss of function associated with difficulty speaking, although not carol aphasia or slurred speech. All symptoms resolved in less than 2 minutes; however, the patient was concerned and presented to the hospital appropriately where above testing did not indicate any acute or subacute CVA nor vascular occlusions or etiology for embolic phenomenon. The patient's aspirin was changed to Plavix and she was started on statin for hyperlipidemia in the setting of presumed TIA. On the day of discharge, she was interactive and pleasant. No apparent distress without any residual deficits. Extensive counseling regarding secondary risk prevention including control of her blood pressure and her cholesterol, changes in her dietary habits with decreased consumption of high- cholesterol food including beef and cheese were undertaken. Reasons to return to the hospital including but not limited to recurring or worsening symptoms including but not limited to shortness of breath or chest pain, asymmetric or bilateral weakness, numbness or paresthesias, slurred speech , lightheaded, loss of consciousness or near loss of consciousness, or inability to obtain or tolerate medications were discussed with the patient and her . They acknowledged understanding. TIME SPENT: Greater than 60 minutes was spent on discharge of this patient with greater than half the time spent [id number] with the patient. CC: Dr. Joshi* [id number]/[facility] #: [id number] STEPHANE
== END 2016-06-28 15:45 | disposition home or self-care (01) ==
LOC: ED 16:16 → MEDTELE 18:31
PROVIDERS: ADMIT Hospitalist; ATTEND Internal Medicine
DX: G45.9 Transient cerebral ischemic attack, unspecified (principal); I25.10 Atherosclerotic heart disease of native coronary artery without angina pectoris; I10 Essential (primary) hypertension; M81.0 Age-related osteoporosis without current pathological fracture; Z79.01 Long term (current) use of anticoagulants; Z79.899 Other long term (current) drug therapy; Z88.2 Allergy status to sulfonamides; Z88.8 Allergy status to other drugs, medicaments and biological substances; Z87.891 Personal history of nicotine dependence; I49.1 Atrial premature depolarization
CPT/HCPCS: 36415; 70450; 70496; 70498; 70551; 71010; 80053; 80061; 81003; 81015; 83036; 83605; 84484; 85025; 85610; 85730; 86850; 86900; 86901; 87086; 93005; 93306; 96360; 96361; 96372; 99284; A9270-GY; G0378; J1650; Q9967

== ENCOUNTER 2016-07-02 09:20 | Emergency (ER) | payer MEDICARE, BC ==
[2016-07-02 10:28] LABS: Hematocrit 43 % (35-47); Hemoglobin 14.3 g/dl (12.0-16.0); Mean Corpuscular HGB Conc 33 g/dl (31-36); Mean Corpuscular Hemoglobin 31 pg (27-31); Mean Corpuscular Volume 93 fL (80-97); Mean Platelet Volume 8 um3 (7.4-10.4); Red Blood Count 4.67 10^6/ul (4.0-5.4); Red Cell Distribution Width 14 % (10.5-15); White Blood Count 6.8 10^3/ul (3.5-10.8)
[2016-07-02 10:39] LABS: Albumin 3.4 g/dL (3.2-5.2); BUN/Creatinine Ratio 17.4 (8-20); Calcium 8.7 mg/dL (8.6-10.3); EGFR African American 82.3 (>60); Globulin 3.3 g/dL (2-4); Potassium 4.3 mmol/L (3.5-5.0); Total Bilirubin 0.5 mg/dL (0.2-1.0); Total Protein 6.7 g/dL (6.4-8.9)
[2016-07-02 13:54] LABS: C Reactive Protein 1.45 mg/L (< 5.00)
[2016-07-02 14:39] LABS: Erythrocyte Sed Rate 24 mm/Hr (0-40)
[2016-07-02 14:55] VITALS: BP 117/56
--- NOTE | 2016-07-02 17:32 | CONS ---
CONSULTATION REPORT: DATE OF CONSULT/DICTATION: 07/02/16 - EMERGENCY DEPT PATIENT OF: Dr. Calle and Dr. Joshi. HISTORY OF PRESENT ILLNESS: This is a 75-year-old right-handed woman, who I recently saw in the hospital for recent probable TIA and she comes in today because of visual blurring. She presented on June 27 when she had been bending over and then stood up, she noticed her left arm and hand went numb and weak and she needed her right arm to lift her left arm. She had some slurring of speech. She said that her vision was affected, but it was hard for her to describe. She said it was gritty, but not blurry specifically. She has not had no prior strokes or TIAs up until that point and she had a normal neurological exam when I saw her and went home on Friday. Today, when she woke up has had bilateral blurring of vision. This began not when she was lying in bed, but when she got out and about and this has been persisting. It is in both eyes and has persisted to the present. Her only new meds are the Plavix and the statin. PAST MEDICAL HISTORY: She has a past history of coronary artery disease, status post [place] and angioplasty. Has hypertension, osteoporosis, elevated cholesterol in the past. PAST SURGICAL HISTORY: She is status post perforated bowel surgery. MEDICATIONS: Include: 1. Lipitor 40 mg daily. 2. Plavix 75 mg daily. 3. Fosamax 70 mg daily. 4. Diltiazem 120 mg q.a.m. ALLERGIES: She is allergic to ISOSORBIDE, MEPERIDINE, PROPRANOLOL, and SULFA ANTIBIOTICS. FAMILY HISTORY: Father had lung cancer. Mother of meningitis. SOCIAL HISTORY: She was a former 80-tluq-bheh history smoker, but does not smoke, drink, or use drugs now. REVIEW OF SYSTEMS: Negative in all 14 spheres other than the HPI at this point. PHYSICAL EXAM: She is alert and oriented with normal speech and comprehension. Cranial nerves II through XII are intact. She describes some subjective visual blurring, but could see all objects in all visual blanchard. There was no sightedness to this and one eye was not more than another. Motor exam revealed normal tone, strength, [id number]. Sensation is intact to light touch. Reflexes were 1+ and equal. Downgoing toes. Neck was supple. Chest: Clear. Cardiovascular: Regular rate and rhythm without murmur. Abdomen: Soft with positive bowel sounds. Blood pressure in the room is 134/68, nothing is on the chart and there is no temperature on the chart. Pulse is 65, respirations 13. LABORATORY DATA: Labs today include normal CBC. INR 0.88. Normal CMP. Her glucose is 100, she did not have anything to eat today. IMPRESSION AND PLAN: I discussed at length with Mireille that the bilateral visual blurriness is usually not a sign of focal neurological ischemia. Focal neurological ischemia would cause a field cut or possibly monocular visual symptoms and it seems more likely this may be hypoperfusion in her blood pressure. I will discuss with Dr. Calle, let him assess her blood pressure and also the issue whether she could have some orthostatic changes as well. There is no temporal tenderness and she has had no temporal pain with this, but it will be reasonable to check a sed rate. In terms of further stroke workup, the only thing that has not been done is a ALBA. This would be more full way of looking at possibly clot in her heart. This would be unlikely that this would be cardiac emboli since this is in all blanchard in both eyes symmetrically, but especially given her concern, it would be reasonable to check. Her CTA done on the showed less than 50% bilateral stenosis. Her MRI scan did show small vessel disease. I discussed with her that she is prone to further stroke, but we have taken measures to try to reduce the risk. I also discussed that given her recent event, there would be increased concern for bleeding and she would not be a good tPA candidate in the near future if something worse happened. I will be speaking to Dr. Calle about disposition. If her sed rate is not markedly elevated, then it may be reasonable for her to go home with a ALBA in the near future and I could see her in followup and depending on what Dr. Calle feels about her blood pressure. Thank you for sharing her case. [id number]/[facility] #: [id number] STEPHANE
--- NOTE | 2016-07-03 11:02 | ED ---
Alex Ross Benjamin, scribed for Teddy Calle MD on 07/02/16 at 1018 . Throat Pain/Nasal Congestion - HPI Summary HPI Summary: 75yo female c/o bilateral blurry vision yesterday afternoon and this morning. Pt states that she was seen in ED 5 days ago for TIA symptoms, including left arm weakness and off speech for 2 minutes. Pt states that her eyes are still burry. Pt describes blurry visions as wavy, and unable to focus. Reports that vision gets better with glasses off. Denies any difficulty walking. - History of Current Complaint Chief Complaint: EDDizziness Time Seen by Provider: 07/02/16 09:46 Hx Obtained From: Patient - Allergies/Home Medications Allergies/Adverse Reactions: Allergies Allergy/AdvReac Type Severity Reaction Status Date / Time Isosorbide Allergy Dizziness Verified 05/24/15 11:45 Meperidine [From Demerol HCl] Allergy Headache Verified 05/24/15 11:45 Propranolol [From Inderal] Allergy "BLOOD Verified 05/24/15 11:45 PRESSURE BOTTOMED OUT" Sulfa Antibiotics Allergy Hives Verified 05/24/15 11:45 Home Medications: Home Medications Alendronate (NF) [Fosamax (NF)] 70 mg PO MO 07/02/16 [History Confirmed 07/02/16 ] PMH/Surg Hx/FS Hx/Imm Hx Endocrine/Hematology History: Denies: Hx Anticoagulant Therapy, Hx Blood Disorders, Hx Blood Transfusions, Hx Bone Marrow Disease, Hx Diabetes, Hx Systemic Lupus Erythematosus, Hx Sickle Cell Disease, Hx Thyroid Disease, Hx Anemia, Hx Unexplained Bleeding, Other Endocrine/Hematological Disorders Cardiovascular History: Reports: Hx Syncope - with this illness, Other Cardiovascular Problems/Disorders - Angioplasty at [place] - no stents Denies: Hx Aneurysm, Hx Angina, Hx Angioplasty, Hx Auto Implanted Cardiovert Defib, Hx Cardiac Arrest, Hx Cardiomegaly, Hx Congenital Heart Disease, Hx Congestive Heart Failure, Hx Coronary Artery Disease, Hx Deep Vein Thrombosis, Hx Embolism, Hx Hypercholesterolemia, Hx Hypotension, Hx Hypertension, Hx Pacemaker/ICD, Hx Peripheral Vascular Disease, Hx Rheumatic Fever, Hx Valvular Heart Disease Respiratory History: Reports: Hx Chronic Obstructive Pulmonary Disease (COPD) Denies: Hx Asthma, Hx Chronic Bronchitis, Hx Cystic Fibrosis, Hx Lung Cancer , Hx Pleural Effusion, Hx Pneumonia, Hx Pulmonary Edema, Hx Pulmonary Embolism, Hx Seasonal Allergies, Hx Sleep Apnea, Other Respiratory Problems/Disorders GI History: Reports: Other GI Disorders - perforated intestine repair Denies: Hx Cirrhosis, Hx Crohn's Disease, Hx Diverticulosis, Hx Gall Bladder Disease, Hx Gastroesophageal Reflux Disease, Hx Gastrointestinal Bleed, Hx Hiatal Hernia, Hx Irritable Bowel, Hx Jaundice, Hx Obstructive Bowel, Hx Ileostomy, Hx Pyloric Stenosis, Hx Ulcer History: Denies: Hx Acute Renal Failure, Hx Benign Prostatic Hyperplasia, Hx Chronic Renal Failure, Hx Dialysis, Hx Kidney Infection, Hx Kidney Stones, Hx Renal Disease, Other Problems/Disorders Musculoskeletal History: Reports: Hx Arthritis, Hx Orthopedic Injury - right knee patella fx Denies: Hx Back Problems, Hx Bursitis, Hx Congenital Bone Abnormalities, Hx Fibromyalgia, Hx Gout, Hx Osteoporosis, Hx Scoliosis, Hx Tendonitis, Other Musculoskeletal History Sensory History: Reports: Hx Cataracts, Hx Contacts or Glasses Denies: Hx Eye Injury, Hx Eye Prosthesis, Hx Glaucoma, Hx Legally Blind, Hx Macular Degeneration, Hx Vision Problem, Hx Deafness, Hx Hearing Aid, Hx Hearing Problem, Other Sensory Impairments Opthamlomology History: Reports: Hx Cataracts, Hx Contacts or Glasses Denies: Hx Eye Injury, Hx Eye Prosthesis, Hx Glaucoma, Hx Legally Blind, Hx Macular Degeneration, Hx Vision Problem, Other Sensory Impairments Neurological History: Reports: Hx Headaches - from this current illness Denies: Hx Dementia, Hx Developmental Delay, Hx Migraine, Hx Nerve Disease, Hx Seizures, Hx Spinal Cord Injury, Hx Transient Ischemic Attacks (TIA), Other Neuro Impairments/Disorders Psychiatric History: Denies: Hx Anxiety, Hx Attention Deficit Hyperactivity Disorder, Hx Eating Disorder, Hx Depression, Hx Panic Disorder, Hx Post Traumatic Stress Disorder, Hx Inpatient Treatment, Hx Community Mental Health Tx, Hx Schizophrenia, Hx Bipolar Disorder, Hx Suicide Attempt, Hx of Violent Episodes Against Others, Hx Substance Abuse, Other Psychiatric Issues/Disorders - Cancer History Hx Radiation Therapy: No Hx Palliative Cancer Treatment: No - Surgical History Surgery Procedure, Year, and Place: 12/23/2012-RT. KNEE ARTHROSCOPY-[facility]- [place]. 01/09/2015-abd surgery- benign colon POLYP- [facility]icolectomy-[facility] [place]. 2014-BILATERAL CATARACTS REMOVED-[facility] [place]. FRACTURED ELBOW- 36 YEARS AGO Hx Anesthesia Reactions: No - Immunization History Date of Tetanus Vaccine: up to date Date of Influenza Vaccine: Fall 2015 Infectious Disease History: Denies: Hx Clostridium Difficile, Hx Hepatitis, Hx Human Immunodeficiency Virus (HIV), Hx of Known/Suspected MRSA, Hx Shingles, Hx Tuberculosis, Hx Known/ Suspected VRE, Hx Known/Suspected VRSA, History Other Infectious Disease, Traveled Outside the [place] in Last 30 Days - Family History Known Family History: Positive: Other - [place] - father - Social History Occupation: Retired Lives: With Family Alcohol Use: Rare Substance Use Type: Reports: None Hx Tobacco Use: Yes Smoking Status (MU): Former Smoker Type: Cigarettes Amount Used/How Often: 1/2 PPD X 40 YEARS Length of Time of Smoking/Using Tobacco: whole life Have You Smoked in the Last Year: Yes Review of Systems Constitutional: Negative Positive: Blurred Vision ENT: Negative Cardiovascular: Negative Respiratory: Negative Gastrointestinal: Negative Genitourinary: Negative Musculoskeletal: Negative Skin: Negative Neurological: Negative Psychological: Normal All Other Systems Reviewed And Are Negative: Yes Physical Exam Triage Information Reviewed: Yes Vital Signs On Initial Exam: Initial Vitals Pulse Resp Pulse Ox 64 18 96 07/02/16 09:28 07/02/16 09:28 07/02/16 09:28 Vital Signs Reviewed: Yes Appearance: Positive: Well-Appearing, No Pain Distress, Well-Nourished Skin: Positive: Warm, Skin Color Reflects Adequate Perfusion, Dry Eyes: Positive: Normal ENT: Positive: Normal ENT inspection Neck: Positive: Supple, Nontender Respiratory/Lung Sounds: Positive: Clear to Auscultation, Breath Sounds Present Cardiovascular: Positive: RRR Abdomen Description: Positive: Nontender, Soft Bowel Sounds: Positive: Present Musculoskeletal: Positive: Normal Neurological: Positive: Sensory/Motor Intact, Alert, Oriented to Person Place, Time, CN Intact II-III, Finger to Nose - [place] Coma Scale Coma Scale Total: 15 Diagnostics - Vital Signs Vital Signs Pulse Resp Pulse Ox 07/02/16 09:28 64 18 96 - Laboratory Lab Results: Lab Results 07/02/16 07/02/16 07/02/16 Range/Units 10:00 10:00 10:00 WBC 6.8 (3.5-10.8) 10^3/ul RBC 4.67 (4.0-5.4) 10^6/ul Hgb 14.3 (12.0-16.0) g/dl Hct 43 (35-47) % MCV 93 (80-97) fL MCH 31 (27-31) pg MCHC 33 (31-36) g/dl RDW 14 (10.5-15) % Plt Count 253 (150-450) 10^3/ul MPV 8 (7.4-10.4) um3 Neut % (Auto) 62.7 (38-83) % Lymph % (Auto) 26.7 (25-47) % [place] % (Auto) 7.1 (1-9) % Eos % (Auto) 2.3 (0-6) % Baso % (Auto) 1.2 (0-2) % Absolute Neuts (auto) 4.2 (1.5-7.7) 10^3/ul Absolute Lymphs (auto) 1.8 (1.0-4.8) 10^3/ul Absolute Monos (auto) 0.5 (0-0.8) 10^3/ul Absolute Eos (auto) 0.2 (0-0.6) 10^3/ul Absolute Basos (auto) 0.1 (0-0.2) 10^3/ul Absolute Nucleated RBC 0 10^3/ul Nucleated RBC % 0 ESR 24 (0-40) mm/Hr INR (Anticoag Therapy) 0.88 L (0.89-1.11) Sodium 136 (133-145) mmol/L Potassium 4.3 (3.5-5.0) mmol/L Chloride 106 (101-111) mmol/L Carbon Dioxide 24 (22-32) mmol/L Anion Gap 6 (2-11) mmol/L BUN 15 (6-24) mg/dL Creatinine 0.86 (0.51-0.95) mg/dL Est GFR ( Amer) 82.3 (>60) Est GFR (Non-Af Amer) 64.0 (>60) BUN/Creatinine Ratio 17.4 (8-20) Glucose 100 (70-100) mg/dL Calcium 8.7 (8.6-10.3) mg/dL Total Bilirubin 0.50 (0.2-1.0) mg/dL AST 24 (13-39) U/L ALT 17 (7-52) U/L Alkaline Phosphatase 77 (34-104) U/L Troponin I 0.00 (<0.04) ng/mL C-Reactive Protein 1.45 (< 5.00) mg/L Total Protein 6.7 (6.4-8.9) g/dL Albumin 3.4 (3.2-5.2) g/dL Globulin 3.3 (2-4) g/dL Albumin/Globulin Ratio 1.0 (1-3) Result Diagrams: 07/02/16 10:00 07/02/16 10:00 Lab Statement: Any lab studies that have been ordered have been reviewed, and results considered in the medical decision making process. EENT Course/Dx - Course Course Of Treatment: Ms. Vela presented with a C/O "gritty" eyes and blurred vision which she also had when she had her recent TIA as well as left arm weakness that she does not have today.Her W/U was negative and Dr. Hurtado came in to evaluate her. - Diagnoses Provider Diagnoses: Blurry vision Discharge - Discharge Plan Condition: Stable Disposition: HOME Referrals: Jerardo Hurtado MD [Medical Doctor] - Additional Instructions: Please Call [phone] (Outpatient Scheduling) to schedule an Echocardiogram. The documentation as recorded by the Alex clemens Benjamin accurately reflects the service I personally performed and the decisions made by , Teddy Calle MD.
== END 2016-07-02 14:55 | disposition home or self-care (01) ==
LOC: ED 09:20
DX: H53.8 Other visual disturbances (principal); R47.81 Slurred speech
CPT/HCPCS: 36415; 80053; 84484; 85025; 85610; 85652; 86140; 99283

== ENCOUNTER 2017-07-15 00:47 | Emergency (ER) | payer MEDICARE, BC ==
[2017-07-15] MEDS ORDERED: Acetaminophen TAB* 325 MG PO ONE (01:11)
[2017-07-15] MEDS ORDERED: Morphine INJ* 2 MG/ML 1 ML CARPUJECT IV ONE (01:13)
[2017-07-15] MEDS ORDERED: NS 0.9% 1000 ML* 1,000 ML IV ONE (01:13)
[2017-07-15] MEDS ORDERED: Ondansetron INJ* 2 MG/ML VIAL IV ONE (01:14)
[2017-07-15] MEDS ORDERED: Oseltamivir CAP* 75 MG PO ONE (01:59)
[2017-07-15] MEDS ORDERED: Morphine INJ* 2 MG/ML 1 ML SYRINGE (TWO MG - NEW SYRINGE VERSION) IV ONE (02:00)
[2017-07-15 02:04] LABS: ABS Basophils 0.1 10^3/ul (0-0.2); ABS Eosinophils 0 10^3/ul (0-0.6); ABS Lymphocytes 0.7 10^3/ul (1.0-4.8); ABS Monocytes 0.5 10^3/ul (0-0.8); ABS Neutrophils 7.8 10^3/ul (1.5-7.7); ABS Nucleated RBC 0 10^3/ul; Eosinophil % 0.1 % (0-6); Hematocrit 44 % (35-47); Hemoglobin 14.7 g/dl (12.0-16.0); Lymphocyte % 7.5 % (25-47); Mean Corpuscular HGB Conc 34 g/dl (31-36); Mean Corpuscular Hemoglobin 31 pg (27-31); Mean Corpuscular Volume 92 fL (80-97); Mean Platelet Volume 8 um3 (7.4-10.4); Nucleated Red Blood Cells % 0; Platelet Count 207 10^3/ul (150-450); Red Blood Count 4.74 10^6/ul (4.0-5.4); Red Cell Distribution Width 14 % (10.5-15)
[2017-07-15 02:13] LABS: EGFR Non-African American 56.9 (>60)
[2017-07-15 02:18] LABS: INR 0.9 (0.77-1.02)
--- NOTE | 2017-07-15 03:13 | ED ---
Ritika Ross Edward, scribed for Mickey Hillman MD on 07/15/17 at 0058 . Headache - HPI Summary HPI Summary: 76 y/o female presents to the ED c/o severe ORELLANA starting yesterday, still present. Pt also c/o sore throat yesterday that resolved. The ORELLANA was not alleviated by Tylenol. Associated sx: mild fever (101), general weakness, nasal congestion starting yesterday, cough. PMHx TIA. Pt is on blood thinners. - History Of Current Complaint Chief Complaint: EDWeakness Stated Complaint: WEAK, HEADACHE, FEVER Time Seen by Provider: 07/15/17 00:57 Hx Obtained From: Patient Onset/Duration: Started days ago, Still Present Timing: Constant Aggravating Factor: Nothing Allevating Factors: Nothing Associated Signs And Symptoms: Fever, Other (Noted In Comments) - cough, nasal congestion, weakness - Allergies/Home Medications Allergies/Adverse Reactions: Allergies Allergy/AdvReac Type Severity Reaction Status Date / Time Isosorbide Nitrate Allergy Dizziness Verified 05/24/15 11:45 [Isosorbide] Meperidine [From Demerol HCl] Allergy Headache Verified 05/24/15 11:45 Propranolol [From Inderal] Allergy "BLOOD Verified 05/24/15 11:45 PRESSURE BOTTOMED OUT" Sulfa Antibiotics Allergy Hives Verified 05/24/15 11:45 PMH/Surg Hx/FS Hx/Imm Hx Previously Healthy: No Endocrine/Hematology History: Denies: Hx Anticoagulant Therapy, Hx Blood Disorders, Hx Blood Transfusions, Hx Bone Marrow Disease, Hx Diabetes, Hx Systemic Lupus Erythematosus, Hx Sickle Cell Disease, Hx Thyroid Disease, Hx Anemia, Hx Unexplained Bleeding, Other Endocrine/Hematological Disorders Cardiovascular History: Reports: Hx Syncope - with this illness, Other Cardiovascular Problems/Disorders - Angioplasty at [place] - no stents Denies: Hx Aneurysm, Hx Angina, Hx Angioplasty, Hx Auto Implanted Cardiovert Defib, Hx Cardiac Arrest, Hx Cardiomegaly, Hx Congenital Heart Disease, Hx Congestive Heart Failure, Hx Coronary Artery Disease, Hx Deep Vein Thrombosis, Hx Embolism, Hx Hypercholesterolemia, Hx Hypotension, Hx Hypertension, Hx Pacemaker/ICD, Hx Peripheral Vascular Disease, Hx Rheumatic Fever, Hx Valvular Heart Disease Respiratory History: Reports: Hx Chronic Obstructive Pulmonary Disease (COPD) Denies: Hx Asthma, Hx Chronic Bronchitis, Hx Cystic Fibrosis, Hx Lung Cancer , Hx Pleural Effusion, Hx Pneumonia, Hx Pulmonary Edema, Hx Pulmonary Embolism, Hx Seasonal Allergies, Hx Sleep Apnea, Other Respiratory Problems/Disorders GI History: Reports: Other GI Disorders - perforated intestine repair Denies: Hx Cirrhosis, Hx Crohn's Disease, Hx Diverticulosis, Hx Gall Bladder Disease, Hx Gastroesophageal Reflux Disease, Hx Gastrointestinal Bleed, Hx Hiatal Hernia, Hx Irritable Bowel, Hx Jaundice, Hx Obstructive Bowel, Hx Ileostomy, Hx Pyloric Stenosis, Hx Ulcer History: Denies: Hx Acute Renal Failure, Hx Benign Prostatic Hyperplasia, Hx Chronic Renal Failure, Hx Dialysis, Hx Kidney Infection, Hx Kidney Stones, Hx Renal Disease, Other Problems/Disorders Musculoskeletal History: Reports: Hx Arthritis, Hx Orthopedic Injury - right knee patella fx Denies: Hx Back Problems, Hx Bursitis, Hx Congenital Bone Abnormalities, Hx Fibromyalgia, Hx Gout, Hx Osteoporosis, Hx Scoliosis, Hx Tendonitis, Other Musculoskeletal History Sensory History: Reports: Hx Cataracts, Hx Contacts or Glasses Denies: Hx Eye Injury, Hx Eye Prosthesis, Hx Glaucoma, Hx Legally Blind, Hx Macular Degeneration, Hx Vision Problem, Hx Deafness, Hx Hearing Aid, Hx Hearing Problem, Other Sensory Impairments Opthamlomology History: Reports: Hx Cataracts, Hx Contacts or Glasses Denies: Hx Eye Injury, Hx Eye Prosthesis, Hx Glaucoma, Hx Legally Blind, Hx Macular Degeneration, Hx Vision Problem, Other Sensory Impairments Neurological History: Reports: Hx Headaches - from this current illness Denies: Hx Dementia, Hx Developmental Delay, Hx Migraine, Hx Nerve Disease, Hx Seizures, Hx Spinal Cord Injury, Hx Transient Ischemic Attacks (TIA), Other Neuro Impairments/Disorders Psychiatric History: Denies: Hx Anxiety, Hx Attention Deficit Hyperactivity Disorder, Hx Eating Disorder, Hx Depression, Hx Panic Disorder, Hx Post Traumatic Stress Disorder, Hx Inpatient Treatment, Hx Community Mental Health Tx, Hx Schizophrenia, Hx Bipolar Disorder, Hx Suicide Attempt, Hx of Violent Episodes Against Others, Hx Substance Abuse, Other Psychiatric Issues/Disorders - Cancer History Hx Radiation Therapy: No Hx Palliative Cancer Treatment: No - Surgical History Surgery Procedure, Year, and Place: 12/23/2012-RT. KNEE ARTHROSCOPY-[place]- [place]. 01/09/2015-abd surgery- benign colon [place] [place]BILATERAL CAT[facility]ACTS REMOVED[facility] [place]. FRACTURED ELBOW- 36 YEARS AGO Hx Anesthesia Reactions: No - Immunization History Date of Tetanus Vaccine: up to date Date of Influenza Vaccine: Fall 2015 Infectious Disease History: No Infectious Disease History: Denies: Hx Clostridium Difficile, Hx Hepatitis, Hx Human Immunodeficiency Virus (HIV), Hx of Known/Suspected MRSA, Hx Shingles, Hx Tuberculosis, Hx Known/ Suspected VRE, Hx Known/Suspected VRSA, History Other Infectious Disease, Traveled Outside the [place] in Last 30 Days - Family History Known Family History: Positive: Other - [place] - father - Social History Alcohol Use: Rare Substance Use Type: Reports: None Hx Tobacco Use: Yes Smoking Status (MU): Former Smoker Type: Cigarettes Amount Used/How Often: 1/2 PPD X 40 YEARS Length of Time of Smoking/Using Tobacco: whole life Have You Smoked in the Last Year: Yes Review of Systems Positive: Fever Eyes: Negative Positive: Other - nasal congestion Cardiovascular: Negative Positive: Cough Gastrointestinal: Negative Genitourinary: Negative Musculoskeletal: Negative Skin: Negative Positive: Headache, Weakness Psychological: Normal All Other Systems Reviewed And Are Negative: Yes Physical Exam - Summary Physical Exam Summary: VITAL SIGNS: Reviewed. GENERAL: Patient is a well-developed and nourished female who is lying comfortable in the stretcher. Patient is not in any acute respiratory distress. HEAD AND FACE: No signs of trauma. No ecchymosis, hematomas or skull depressions. No sinus tenderness. EYES: PERRLA, EOMI x 2, No injected conjunctiva, no nystagmus. EARS: Hearing grossly intact. Ear canals and tympanic membranes are within normal limits. MOUTH: Oropharynx within normal limits. NECK: Supple, trachea is midline, no adenopathy, no JVD, no carotid bruit, no c- spine tenderness, neck with full ROM. CHEST: Symmetric, no tenderness at palpation LUNGS: Clear to auscultation bilaterally. No wheezing or crackles. CVS: Regular rate and rhythm, S1 and S2 present, no murmurs or gallops appreciated. ABDOMEN: Soft, non-tender. No signs of distention. No rebound no guarding, and no masses palpated. Bowel sounds are normal. EXTREMITIES: FROM in all major joints, no edema, no cyanosis or clubbing. NEURO: Alert and oriented x 3. No acute neurological deficits. Speech is normal and follows commands. SKIN: Dry and warm Triage Information Reviewed: Yes Vital Signs On Initial Exam: Initial Vitals Temp Pulse Resp BP Pulse Ox 98.5 F 102 20 121/65 94 07/15/17 00:49 07/15/17 00:49 07/15/17 00:49 07/15/17 00:49 07/15/17 00:49 Vital Signs Reviewed: Yes Diagnostics - Vital Signs Vital Signs Temp Pulse Resp BP Pulse Ox 07/15/17 00:49 98.5 F 102 20 121/65 94 - Laboratory Result Diagrams: 07/15/17 01:35 07/15/17 01:35 Lab Statement: Any lab studies that have been ordered have been reviewed, and results considered in the medical decision making process. - Radiology CXR Xray Interpretation: No Acute Changes - Hyperinflation. No acute process. Radiology Interpretation Completed By: ED Physician Re-Evaluation - Re-Evaluation 1 Re-Evaluation Time: 02:20 Comment: Discuss test results, plan of care Headache Course/Dx - Course Assessment/Plan: 76 y/o female presents to the ED c/o severe ORELLANA starting yesterday, still present. Pt also c/o sore throat yesterday that resolved. The ORELLANA was not alleviated by Tylenol. Associated sx: mild fever (101), general weakness, nasal congestion starting yesterday, cough. PMHx TIA. Pt is on blood thinners. CXR shows hyperinflation, no acute process. Influenza A positive. Pt will be d/c home with f/u with PCP as needed. Pt will be given Tamiflu and instructed to use Tylenol for pain. - Diagnoses Provider Diagnoses: Influenza A Discharge - Discharge Plan Condition: Stable Disposition: HOME Prescriptions: Oseltamivir CAP* [Tamiflu CAP*] 75 mg PO BID #10 cap Patient Education Materials: Influenza (ED) Referrals: Misha Joshi MD [Primary Care Provider] - 4 Days (PLEASE F/U IN 3-5 DAYS NEEDED) Additional Instructions: HOME REST NEEDED INCREASE FLUID INTAKE USE TYLENOL FOR PAIN RETURN TO THE ED FOR RETURN OR WORSENING OF SYMPTOMS The documentation as recorded by the Ritika clemens Edward accurately reflects the service I personally performed and the decisions made by me, Mickey Hillman MD.
[2017-07-15 03:21] LABS: Urine Appearance Clear; Urine Blood 1+ (Negative); Urine Color Straw; Urine Ketones Negative (Negative); Urine Protein Negative (Negative); Urine Specific Gravity 1.006 (1.010-1.030); Urine Urobilinogen Negative (Negative)
[2017-07-15 03:38] VITALS: BP 108/61
--- NOTE | 2017-07-15 07:50 | RAD ---
INDICATION: Cough. COMPARISON: Comparison is made with a prior study from June 27, 2016. TECHNIQUE: A portable view of the chest was obtained. FINDINGS: Cardiac and mediastinal contours appear to be within normal limits. The lungs are clear. No pleural effusion is seen. IMPRESSION: NO EVIDENCE FOR ACUTE DISEASE.
== END 2017-07-15 03:35 | disposition home or self-care (01) ==
LOC: ED 00:47
DX: J11.1 Influenza due to unidentified influenza virus with other respiratory manifestations (principal); Z87.891 Personal history of nicotine dependence; Z88.2 Allergy status to sulfonamides; Z88.8 Allergy status to other drugs, medicaments and biological substances; Z88.5 Allergy status to narcotic agent
CPT/HCPCS: 36415; 71045; 80053; 81003; 81015; 83605; 84484; 85025; 85610; 85730; 86140; 87040; 87502; 96361; 96374; 96375; 99282; A9270-GY; J2270; J2405

== ENCOUNTER 2017-07-24 16:10 | Inpatient (IN) | payer MEDICARE, BC ==
[2017-07-24] MEDS ORDERED: Ondansetron INJ* 2 MG/ML VIAL IV ONE (17:04)
[2017-07-24] MEDS ORDERED: Morphine INJ* 4 MG/ML 1 ML CARPUJECT IV ONE ×2 (17:04→23:56)
--- NOTE | 2017-07-24 18:13 | RAD ---
INDICATION: Right femur injury. TECHNIQUE: 2 views of the right femur were obtained. FINDINGS: There is a fracture extending through the base of the femoral neck through the intertrochanteric region. The fracture fragments are slightly displaced without evidence for gross angulation. No additional fractures are seen. IMPRESSION: THERE IS A FRACTURE AT THE BASE OF THE RIGHT FEMORAL NECK EXTENDING THROUGH THE INTERTROCHANTERIC REGION SLIGHTLY DISPLACED.
--- NOTE | 2017-07-24 18:14 | RAD ---
INDICATION: Pelvic injury. TECHNIQUE: An AP view of the pelvis was obtained. FINDINGS: There is a fracture of the proximal right femur as previously described. No additional fractures are seen. Incidental note is made of mild bilateral osteoarthritic change in the hips. IMPRESSION: FRACTURE OF THE PROXIMAL RIGHT FEMUR PREVIOUSLY DESCRIBED. NO ADDITIONAL FRACTURE IS SEEN.
--- NOTE | 2017-07-24 18:17 | RAD ---
INDICATION: Trauma, hip fracture. COMPARISON: Comparison is made with a prior study from July 15, 2017. TECHNIQUE: A single AP view of the chest was obtained supine. FINDINGS: The heart appears mildly enlarged. The lungs are hyperinflated and clear. There is blunting of the right costophrenic angle possibly indicating a small pleural effusion. IMPRESSION: POSSIBLE SMALL RIGHT PLEURAL EFFUSION.
[2017-07-24 20:00] LABS: ABS Basophils 0.1 10^3/ul (0-0.2); ABS Eosinophils 0 10^3/ul (0-0.6); ABS Lymphocytes 1.4 10^3/ul (1.0-4.8); ABS Monocytes 0.6 10^3/ul (0-0.8); ABS Neutrophils 12.1 10^3/ul (1.5-7.7); ABS Nucleated RBC 0 10^3/ul; Eosinophil % 0.2 % (0-6); Hematocrit 41 % (35-47); Hemoglobin 13.6 g/dl (12.0-16.0); Lymphocyte % 9.9 % (25-47); Mean Corpuscular HGB Conc 33 g/dl (31-36); Mean Corpuscular Hemoglobin 30 pg (27-31); Mean Corpuscular Volume 92 fL (80-97); Mean Platelet Volume 8 um3 (7.4-10.4); Nucleated Red Blood Cells % 0.1; Platelet Count 252 10^3/ul (150-450); Red Blood Count 4.48 10^6/ul (4.0-5.4); Red Cell Distribution Width 14 % (10.5-15); White Blood Count 14.2 10^3/ul (3.5-10.8)
[2017-07-24] MEDS ORDERED: Morphine INJ* 2 MG/ML 1 ML CARPUJECT IV PRN (20:11)
[2017-07-24 20:12] LABS: INR 0.95 (0.77-1.02)
[2017-07-24] MEDS ORDERED: Ondansetron INJ* 2 MG/ML VIAL IV PRN (20:13)
[2017-07-24] MEDS ORDERED: Albuterol/Ipratropium NEB.SOL* Albuterol 2.5 MG/Ipratropium 0.5 MG 3 ML INH PRN (20:14)
[2017-07-24 20:15] LABS: EGFR Non-African American 58.9 (>60)
--- NOTE | 2017-07-24 20:26 | ADMNOTE ---
Subjective Date of Service: 07/24/17 Interval History: This is a very pleasant 77 year old female patient that was recently seen in ER on 07/15/17 for cough, fever and chills that was influenza positive and placed on tamiflu. She presents with EMS today after sustaining a fall when she tripped over her dog and landed on her right hip. Patient states she was unable to move or ambulate after that. Xrays reveal a non-displaced right femoral neck fracture extending into the intertrochanteric region. Dr. Jesús Aldana is at the bedside for surgical evaluation. Patient reports no exertional dyspnea, no chest pain, able to walk long distances without breaks, no orthopnea or PND, no fevers or chills, cough resolved, no edema. Patient interviewed with family at bedside. Chart and previous records reviewed. Patient has history of: - Recent Influenza - TIA June, - [place] with PCI - HTN - Former Smoker - Bowel perf/inflammatory mass resection with hemicolectomy with post- operative ileus, 2014 Family History: Findings - CV non-contributory, father and brother with lung cancer Social History: Findings - Quit smoking 1 year ago, denies ETOH use, no illicit drug use. and lives with . Review of Systems - Measurements Intake and Output: Intake and Output Last 24 Hours 07/22/17 07/23/17 07/24/17 07/25/17 06:59 06:59 06:59 06:59 Weight 128 lb - Review of Systems Constitutional Symptoms: Negative: Weight Gain, Weight Loss, Weakness, Fatigue, Fever, Night Sweats, Unexplained Falls, Other Dermatology: Negative: Normal, Rash, Skin Lesions, Cancer, Skin Lumps, Other HEENT: Negative: Normal, Change in Hearing, Vertigo, Dental Problems, Tinnitus, Sinus Problem, Other Eyes: Negative: Normal, Change in Vision, Double Vision, Eye Pain, Glaucoma, Cataract, Contacts or Glasses, Other Thyroid: Negative: Normal, Goiter, Thyroid Nodule, Cold Intolerance, Heat Intolerance , Sweatiness, Tremor, Frequent Defecation, Constipation, Palpitations, Primary Hypothyroidism, Primary Hyperthyroidism, Weight Loss, Weight Gain, Change in Skin/Hair, Change in Menstruation, Radiation Exposure, Other Pulmonary: Positive: Cough Cardiology: Negative: Normal, Chest Pain, Shortness of Breath, Palpitations, Swelling of Ankles, Peripheral Vascular Dis, Edema, Faintness, Syncope, Claudication, Proximal NocturnalDyspnea, Orthopnoea, Other Gastroenterology: Negative: Normal, Abdominal Pain, Nausea, Vomiting, Anorexia, Indigestion, Difficulty Swallowing, Heartburn, Constipation, Diarrhea, Blood in Stools, Change in Bowel Habits, Haematemesis, Melena, Other Genital - Urinary: Negative: Normal, Dysuria, Hematuria, Polyuria, Nocturia, Other Genitourinay - Female: Positive: Menopause Musculoskeletal: Positive: Joint Pain, Joint Stiffness, Joint Deformities - right mildly outwardly rotated LE Endocrinology: Negative: Normal, Thyroid Problems, Adrenal Problems, Gonadal Problems, Family Hx Endocrine Disorders, Obesity, Diabetes Mellitus, Hyperglycemia, Hx Hypoglycemia, Diabetic Foot Ulcers, Calluses, Hirsutism, Menstral Abnormalities , Polydipsia, Polyuria, Gonadal Problems, Gynecomastia, Pituitary disease, Other Hematologic/Lymphatic: Negative: Anemia, Easy Brusing, Hx Leukemia, Hx Lymphoma, Use of Anticoagulant, Use of Antiplatelet Drugs, Other Neurology: Positive: Hx of Stroke\TIA Psychiatry: Negative: Normal, Depression, Anxiety, Depressed Mood, Adhedonia, Sexual Dysfunction, Weight Change, Guilt Feelings, Tearfulness, Unusual Fatigue, Unusual Anxiety, Suicidal Ideation, Hypomania, Eating Disorders, Other Allergic/Immunologic: Negative: Hx Anaphylaxis, Hx Angioedema, Hx Environmental, Hx Seasonal, Athsma, Hx HIV, Immunocompromise, Swollen Glands LymphNodes, Other Objective Active Medications: Albuterol/Ipratropium (Duoneb (Albuterol 2.5 Mg/Ipratropium 0.5 Mg)) 1 neb INH Q6H PRN PRN Reason: SOB/WHEEZING Atorvastatin Calcium (Lipitor*) 40 mg PO DAILY [facility] Diltiazem HCl (Cardizem Cd Cap*) 120 mg PO DAILY [facility] Morphine Sulfate (Morphine Inj (Syringe)*) 2 mg IV Q4H PRN PRN Reason: PAIN Ondansetron HCl (Zofran Inj*) 4 mg IV Q6H PRN PRN Reason: NAUSEA Vital Signs - 8 hr 07/24/17 07/24/17 07/24/17 16:44 17:09 18:13 Temperature 100.4 F Pulse Rate 72 Respiratory 18 16 Rate Blood Pressure 146/62 136/70 (mmHg) O2 Sat by Pulse 97 Oximetry 07/24/17 07/24/17 07/24/17 18:14 18:30 19:00 Temperature Pulse Rate 80 77 86 Respiratory Rate Blood Pressure 136/74 135/72 (mmHg) O2 Sat by Pulse 96 94 95 Oximetry 07/24/17 19:30 Temperature Pulse Rate 87 Respiratory Rate Blood Pressure 146/73 (mmHg) O2 Sat by Pulse 93 Oximetry Oxygen Devices in Use Now: None Appearance: Alert, well appearing, NAD Eyes: No Scleral Icterus, PERRLA Ears/Nose/Mouth/Throat: NL Teeth, Lips, Gums, Mucous Membranes Moist Neck: NL Appearance and Movements; NL JVP, Trachea Midline Respiratory: Symmetrical Chest Expansion and Respiratory Effort, Clear to Auscultation Cardiovascular: NL Sounds; No Murmurs; No JVD, RRR, No Edema Abdominal: NL Sounds; No Tenderness; No Distention, No Hepatosplenomegaly Extremities: No Edema, No Clubbing, Cyanosis - pain over left hip Skin: No Rash or Ulcers Neurological: Alert and Oriented x 3, NL Sensation, NL Muscle Strength and Tone Nutrition: - - NPO since 3:00pm today Result Diagrams: 07/24/17 19:45 07/24/17 19:45 Diagnostic Imaging: FEMUR XRAY Patient Name: CRAIG PERRY Medical Record#: [id number] Ordering Physician: Teddy Calle MD Acct.#: [id number] : 1940 Age: 77 Sex: F Location: EMERGENCY DEPARTMENT Exam Date: 07/24/171715 ADM Status: REG ER Order Information: FEMUR RIGHT Accession Number: [id number] CPT: 53511 INDICATION: Right femur injury. TECHNIQUE: 2 views of the right femur were obtained. FINDINGS: There is a fracture extending through the base of the femoral neck through the intertrochanteric region. The fracture fragments are slightly displaced without evidence for gross angulation. No additional fractures are seen. IMPRESSION: THERE IS A FRACTURE AT THE BASE OF THE RIGHT FEMORAL NECK EXTENDING THROUGH THE INTERTROCHANTERIC REGION SLIGHTLY DISPLACED. <Electronically signed by Karlo Savage MD in OV> 07/24/171809 Dictated By: Karlo Savage MD Dictated Date/Time: 07/24/171809 Transcribed Date/Time: 07/24/171808 Copy to: CC:Misha Joshi MD; Teddy Calle MD Imaging - [facility] Imaging - [facility] [id number] [place] [id number] ph ([phone]) ph ([phone]) ph ([phone]) CHEST XRAY Patient Name: CRAIG PERRY Medical Record#: [id number] Ordering Physician: Teddy Calle MD Acct.#: [id number] : 1940 Age: 77 Sex: F Location: EMERGENCY DEPARTMENT Exam Date: 07/24/17 ADM Status: REG ER Order Information: CHEST 1 VW Accession Number: [id number] CPT: 23630 INDICATION: Trauma, hip fracture. COMPARISON: Comparison is made with a prior study from July 15, 2017. TECHNIQUE: A single AP view of the chest was obtained supine. FINDINGS: The heart appears mildly enlarged. The lungs are hyperinflated and clear. There is blunting of the right costophrenic angle possibly indicating a small pleural effusion. IMPRESSION: POSSIBLE SMALL RIGHT PLEURAL EFFUSION. <Electronically signed by Karlo Savage MD in OV> 07/24/171812 Dictated By: Karlo Savage MD Dictated Date/Time: 07/24/171812 Transcribed Date/Time: 07/24/171811 Copy to: EKG Data: EKG reviewed. RSR, Old Qwave present. No acute ST segment changes noted, No acute changes from last EKG. Assess/Plan/Problems-Billing Assessment: This is a 77 year old female patient with mechanical fall resulting in a right femoral neck fracture. We are being requested to evaluate for pre-operative optimization for ORIF planned for this evening and will admit to medical service in anticipation of surgery tonight: Plan and Recommendations: 1. Mechanical Fall with Femoral Neck Fx 2. Hx of CAD and [place] 3. Hx of Tobacco abuse 4. Hx of TIA on plavix - Cardiac diagnostics from June (ALBA) reviwed, EF 55-60% with no significant valvular disease, bubble study negative. EKG with no acute changes from previous. - CT head from June reviewed, hold plavix, patient no longer takes ASA - CXR reviewed and compared to 07/15/2017, there appears to be clearing/ improvement of the RLL effusion tht was likely 2/2 flu infection - Would recommend telemetry post-op, pulmonary toilet, including IS, cough, deep breath. Duonebs ordered PRN - Continue diltiazem and statin - Morphine PRN, zofran PRN, IVF, NPO - Careful bowel regimen given hx of resection and prolonged ileus with docusate and miralax RCRI for Pre-operative risk = 2points, Class III Risk based on hx of [place] and TIA which gives her a 6.6% chance of major cardiac event 2/2 surgery. Patient is medically optimized for procedure based on this assessment. Standard surgical and anesthesia risks apply and are outside the scope of this assessment. Status and Disposition: Clear to procede with surgery per ortho service. Counseling and/or Coordination of Care Minutes: Coordinated with Dr. Jesús Aldana, orthopedics
[2017-07-24] MEDS ORDERED: ceFAZolin 2 GM PREMIX (*) 2 GM/50 ML BAG IVPB ONE (20:53)
[2017-07-24] MEDS ORDERED: Famotidine IV* 10 MG/ML 2 ML (20 mg) IV ONE (21:07)
[2017-07-24] MEDS ORDERED: Buffered Lidocaine 0.9% SYRIN* 5 ML/SYR SYRINGE INTRADERM ONE (21:07)
[2017-07-24] MEDS ORDERED: Famotidine IV* 10 MG/ML 2 ML (20 mg) ONE (21:12)
[2017-07-24] MEDS ORDERED: fentaNYL* 50 MCG/ML 2 ML VIAL (100 MCG VIAL) ONE ×2 (21:18→23:40)
[2017-07-24] MEDS ORDERED: Midazolam* 1 MG/ML 2 ML VIAL (2 MG) ONE (21:18)
[2017-07-24] MEDS ORDERED: KETAMINE HCL* 50 MG/ML 10 ML VIAL ONE (21:18)
[2017-07-24] MEDS ORDERED: Bupivacaine 0.5% SDV PF* 10-30ML VIAL ONE (22:03)
--- NOTE | 2017-07-24 22:32 | CONS ---
ORTHOPEDIC CONSULTATION/HISTORY AND PHYSICAL: DATE OF CONSULT: 07/24/17 REQUESTING SERVICE: Emergency Room. CONSULTING SERVICE: Orthopedics. CHIEF COMPLAINT: Right hip pain. HISTORY OF PRESENT ILLNESS: Mireille is a very pleasant 77-year-old woman who tripped and sustained a mechanical fall this afternoon around 3 p.m. injuring her right hip. She denies pain anywhere else other than some mild pain in her right knee, but she says she has chronic right knee pain from an old injury. At baseline, she does not use any assistive devices for ambulation. She lives at home with her . She denies any prior problems with the right hip. PAST MEDICAL HISTORY: 1. Coronary artery disease. She had one WY 20 years ago, but did not have surgery or stents placed. 2. Perforated intestine about 2 years ago that required surgery. 3. History of TIA. 4. She recently had the flu and took Tamiflu. 5. Hypertension. PAST SURGICAL HISTORY: Abdominal surgery for perforated intestine 2 years ago. MEDICATIONS: 1. Plavix. 2. Diltiazem. 3. Lipitor. ALLERGIES: DEMEROL, SULFA, ISOSORBIDE. FAMILY HISTORY: Lung cancer and meningitis. SOCIAL HISTORY: She lives at home with her . Former smoker. No illicit drug use. No ambulatory assistive devices. REVIEW OF SYSTEMS: A 14-point review of systems is negative. PHYSICAL EXAM: Vital Signs: Temperature 100.4, pulse 72, respiratory rate 16, oxygen saturation 97% on room air, and blood pressure 146/62. General: She is well-appearing and in no apparent distress. Head and Neck Exam: She moves her neck without pain. She has nonicteric sclerae. Cardiovascular: She has a regular rate and rhythm. Lung sounds are clear to auscultation bilaterally. She has palpable pedal pulses bilaterally. Abdomen: Soft and nontender. Skin: No ulcerative lesions or rashes appreciated. Neuro/Psych: Normal mood and affect. Alert and oriented x3. No defects in coordination and normal reflexes in her extremities. Musculoskeletal: Her bilateral upper extremity and left lower extremity do not have any obvious deformities. She moves them fully without any pain and there is no tenderness to palpation. Examination of the right lower extremity reveals that the leg is shortened and externally rotated. She is tender about the hip, but the skin is intact. She does have some mild tenderness along the knee diffusely, but she says a lot of this is from her chronic knee pain. There is an anterior knee abrasion. Pain with heel strike and log roll. She has palpable dorsalis pedis pulse and the foot is warm and well perfused. She is able to dorsi and plantar flex the ankle as well as toes without any pain. Sensation is intact to light touch in the right lower extremity. LABORATORY DATA: No labs have been drawn at this visit yet; however, she had recent labs drawn on 07/15/17 that did show a hematocrit of 44. IMAGING: X-rays of the pelvis and right femur were obtained and independently interpreted and do show an intertrochanteric right proximal femur fracture. ASSESSMENT AND PLAN: A 77-year-old woman, status post a mechanical fall with a right hip intertrochanteric fracture. We did discuss the diagnosis and prognosis at length with her, her , and her son in the emergency room today. We discussed both nonoperative and operative treatment options for this at length. Additionally, we did discuss the risks of surgery at length. I did recommend surgical intervention for this problem. We discussed the reasons for that at length today. After discussion, they did decide that they would like to move forward with surgery when medically cleared. All of their questions were answered and I will plan on seeing them back next for surgery. [id number]/[facility] #: [id number] STEPHANE
[2017-07-24] MEDS ORDERED: PROCHLORPERAZINE INJ 5 MG/ML 2 ML VIAL IV PRN (22:54)
[2017-07-24] MEDS ORDERED: Naloxone* 0.4 MG/ML 1 ML VIAL IV PRN (22:54)
[2017-07-24] MEDS ORDERED: Dexamethasone IV* 4 MG/ML 1 ML (4 MG) ONE (23:17)
[2017-07-24] MEDS ORDERED: Ondansetron INJ* 2 MG/ML VIAL ONE (23:17)
[2017-07-24] MEDS ORDERED: Phenylephrine INJ* 10 MG/ML 1 ML VIAL (10 MG) ONE (23:17)
[2017-07-24] MEDS ORDERED: Propofol* 10 MG/ML 20 ML BTL IV PUSH ONE (23:17)
[2017-07-24] MEDS ORDERED: Lidocaine 2% PF * 5 ML VIAL ONE (23:17)
--- NOTE | 2017-07-24 23:29 | OP ---
Operative Report - Blank - Operative Report Date of Operation: 07/24/17 Note: PATIENT: Mireille Vela DATE OF : [birth year] DATE OF SURGERY: 07/24/17 SURGEON: Jesús Aldana MD TOW PICKER: none ANESTHESIOLOGIST: Dr Campuzano PREOPERATIVE DIAGNOSIS: Right intertrochanteric hip fracture. POSTOPERATIVE DIAGNOSIS: Right intertrochanteric hip fracture. PROCEDURE: Open reduction and internal fixation of the right hip utilizing a cephalomedullary nail. ANESTHESIA: GETA IMPLANTS: Lazaro gamma nail measuring 19x979 mm with 125 degree neck shaft angle, 90 mm lag screw, and 35 mm distal interlocking screw. ESTIMATED BLOOD LOSS: 50cc SPECIMENS: None. DRAIN: None TOURNIQUET TIME: None. COMPLICATIONS: None. STATUS: Stable from the operating room to the recovery room and then admitted to the floor. INDICATIONS FOR PROCEDURE: Mireille sustained a fall with the above-mentioned injury. Both operative and non operative treatment alternatives were reviewed. Further, the nature and risks of surgery were reviewed in careful detail, in the office as well as the pre-operative holding area. Our discussions regarding the risks of surgery included, but were not limited to, infection, wound problems, malunion, nonunion, nerve injury, neuroma, RSD, persistent symptoms, and even the remote chance of catastrophic complication, including loss of limb or . DESCRIPTION OF PROCEDURE: The patient was seen in the preoperative holding unit and informed written consent was obtained. The appropriate extremity was marked. The patient was then brought to the operating room anesthesia was induced. The patient was then carefully positioned on the fracture table and all bony prominences were padded with great care. We fluoroscopically assessed the fracture and pulled traction to gain a reduction. A chlorhexidine-based pre- scrub was performed followed by prep and drape in standard sterile fashion with ChloraPrep. A surgical safety pause was then conducted in which we confirmed the appropriate patient, extremity, planned procedure, availability of equipment , indication and administration of prophylactic antibiotics, and DVT prophylaxis in the form of a compression boot on the non-surgical extremity. I made an approximately 3-cm incision in line with the femur proximal to the greater trochanter. I carried the dissection down through the soft tissue and found the starting point on the greater trochanter utilizing the guidewire. This was confirmed fluoroscopically. I tapped the guidewire into proper position and then confirmed the position of the guidewire fluoroscopically. At this point, I overdrilled utilizing the starting reamer. This was done with fluoroscopic guidance as well. I then passed the short nail into appropriate position and gently tapped this down. The reduction was maintained during this portion of the procedure. I placed a guidewire up into the femoral neck and confirmed that this was center-center within the femoral head. I then measured the length of the guidewire and overdrilled this. I then placed the screw up into the femoral head. I confirmed that this was in the appropriate position utilizing multiple views fluoroscopically. I then locked this lag screw into place. At this point, I placed a single static interlocking screw distally into the nail utilizing the guide. At this point, I removed the guide arm and obtained final fluoroscopic images. I was pleased with the reduction and the position of the hardware. I irrigated copiously and closed in layers utilizing 0 Vicryl for the deep layer, 2-0 Vicryl for the Lulu's and superficial layers , and eagle for the skin. A sterile dressing was then applied. At this point, the patient was carefully transitioned off of the fracture table and awakened from anesthesia. There were no complications. All needle and sponge counts were correct at the end of the case. ATTESTATION: I attest I was present and scrubbed and performed the entire procedure myself. POSTOPERATIVE PLAN: The patient will be admitted back to the medical service postoperatively and may be weightbearing as tolerated and will work with physical therapy. DVT prophylaxis with Lovenox 40 mg sc daily for 1 month is recommended.
[2017-07-24] MEDS: fentaNYL* 50 MCG/ML 2 ML VIAL (100 MCG VIAL) IV PRN ×2 (23:41→23:47)
[2017-07-24] MEDS: Morphine INJ* 2 MG/ML 1 ML CARPUJECT IV PRN (23:57)
[2017-07-25] MEDS: fentaNYL* 50 MCG/ML 2 ML VIAL (100 MCG VIAL) IV PRN (00:01)
[2017-07-25] MEDS: Morphine INJ* 2 MG/ML 1 ML CARPUJECT IV PRN ×3 (00:07→00:27)
[2017-07-25] MEDS: NS 0.9% 1000 ML* 1,000 ML IV SCH ×2 (01:11→11:47)
--- NOTE | 2017-07-25 08:05 | RAD ---
CPT II Codes: 6045F INDICATION: Right hip fracture TECHNIQUE: Intraoperative fluoroscopy was provided during ORIF of the right hip. FINDINGS: For spot films depict anatomic alignment of right hip internal fixation device. Fluoroscopy time: 39.3 seconds IMPRESSION: As above.
[2017-07-25] MEDS: Clopidogrel TAB* 75 MG PO SCH (09:34)
[2017-07-25] MEDS: Atorvastatin* 40 MG TAB PO SCH (09:34)
[2017-07-25] MEDS: Docusate CAP* 100 MG PO SCH ×2 (09:34→20:34)
[2017-07-25] MEDS: Diltiazem CD CAP* 120 MG PO SCH (09:35)
[2017-07-25] MEDS: Polyethylene Glycol 3350* 17 GM PACKET PO SCH (09:35)
--- NOTE | 2017-07-25 10:10 | PN ---
Progress Note - Progress Note Date of Service: 07/25/17 SOAP: Subjective: 77 y/o female s/p ORIF [address]ana due to R intertroch fx. Patient resting in bed comfortably, family at bedside, no complaints, pain well controlled in hip, c/o continued knee pain, states had patellar fracture in recent past that she declined treatment on, worked with PT this AM. VSS afebrile Objective: General- Well appearing, NAD resting in bed comfortably MSK- surgical dressing intact, no drainage, no induration, erythema around thigh, + DF/PF b/l, PT 2+ b/l, neg homans b/l. Dressing over knee. Assessment: Stable 77 y/o female s/p ORIF [address] Aldana due to R intertroch fx. Plan: - Cefazolin x 3 doses post-op - Pain medication - PT/ OT - Lovenox x 1 month post-op - H&H stable, continue to monitor - x-ray R knee today Active Medications Generic Name Dose Route Start Last Admin Trade Name Freq PRN Reason Stop Dose Admin Albuterol/Ipratropium 1 neb 07/24/17 20:14 Duoneb (Albuterol 2.5 Mg/Ipratropium 0.5 Mg) INH Q6H PRN SOB/WHEEZING Atorvastatin Calcium 40 mg 07/25/17 09:00 07/25/17 09:34 Lipitor* PO 40 mg DAILY [facility] Administration Clopidogrel Bisulfate 75 mg 07/25/17 09:00 07/25/17 09:34 Plavix Tab* PO 75 mg DAILY [facility] Administration Diltiazem HCl 120 mg 07/25/17 09:00 07/25/17 09:35 Cardizem Cd Cap* PO 120 mg DAILY [facility] Administration Docusate Sodium 100 mg 07/25/17 09:00 07/25/17 09:34 Colace Cap* PO 100 mg BID [facility] Administration Sodium Chloride 1,000 mls @ 100 mls/hr 07/24/17 21:00 07/25/17 01:11 Ns 0.9% 1000 Ml* IV 100 mls/hr PER RATE [facility] Administration Cefazolin Sodium/Dextrose 1 gm in 50 mls @ 200 mls/hr 07/25/17 09:00 Kefzol 1 Gm In Dextrose Duplex (*) IVPB Q8H [facility] Morphine Sulfate 2 mg 07/24/17 20:11 07/25/17 01:11 Morphine Inj (Syringe)* IV 2 mg Q4H PRN Administration PAIN Ondansetron HCl 4 mg 07/24/17 20:13 07/25/17 01:37 Zofran Inj* IV 4 mg Q6H PRN Administration NAUSEA Polyethylene Glycol/Electrolytes 17 gm 07/25/17 09:00 07/25/17 09:35 Miralax* PO Not Given DAILY [facility]
[2017-07-25] MEDS ORDERED: oxyCODONE/Acetamin 5/325 MG* TAB PO PRN (10:14)
[2017-07-25] MEDS: ceFAZolin 1 GM in Dextrose (*) 1 GM/50 ML BAG IVPB SCH ×2 (10:52→16:59)
[2017-07-25] MEDS: Acetaminophen TAB* 325 MG PO PRN ×3 (11:45→20:34)
--- NOTE | 2017-07-25 15:13 | ED ---
Brijesh Ross Jennifer, scribed for Teddy Calle MD on 07/24/17 at 1712 . Lower Extremity - HPI Summary HPI Summary: The patient is a 77 year old female who tripped over her dog and fell flat on her right side today. She describes that she cant straighten out her right leg and was given morphine for the pain in the ambulance. The patient also presented to the ED on Friday for the flu. She was given morphine for a headache then. - History of Current Complaint Chief Complaint: EDExtremityLower Stated Complaint: FALL Time Seen by Provider: 07/24/17 16:45 Hx Obtained From: Patient Mechanism Of Injury: Fall From A Standing Position Onset of Pain: Immediate Onset/Duration: Worse Since Severity Initially: Severe Severity Currently: Severe Pain Intensity: 10 Pain Scale Used: 0-10 Numeric Timing: Constant Aggravating Factor(s): Standing, Ambulation, Movement, Weight Bearing Alleviating Factor(s): Nothing Able to Bear Weight: No - Allergies/Home Medications Allergies/Adverse Reactions: Allergies Allergy/AdvReac Type Severity Reaction Status Date / Time Sulfa (Sulfonamide Allergy Hives Verified 07/25/17 10:09 Antibiotics) isosorbide AdvReac Dizziness Verified 07/25/17 10:09 meperidine AdvReac Headache Verified 07/25/17 10:09 propranolol AdvReac See Comment Verified 07/25/17 10:09 Home Medications: Home Medications Clopidogrel TAB* [Plavix TAB*] 75 mg PO DAILY 07/24/17 [History Confirmed ] Diltiazem CD CAP* [Cardizem CD CAP*] 120 mg PO DAILY 07/24/17 [History Confirmed 07/24/17] PMH/Surg Hx/FS Hx/Imm Hx Endocrine/Hematology History: Denies: Hx Anticoagulant Therapy, Hx Blood Disorders, Hx Blood Transfusions, Hx Bone Marrow Disease, Hx Diabetes, Hx Systemic Lupus Erythematosus, Hx Sickle Cell Disease, Hx Thyroid Disease, Hx Anemia, Hx Unexplained Bleeding, Other Endocrine/Hematological Disorders Cardiovascular History: Reports: Hx Syncope - with this illness, Other Cardiovascular Problems/Disorders - Angioplasty at [place] - no stents Denies: Hx Aneurysm, Hx Angina, Hx Angioplasty, Hx Auto Implanted Cardiovert Defib, Hx Cardiac Arrest, Hx Cardiomegaly, Hx Congenital Heart Disease, Hx Congestive Heart Failure, Hx Coronary Artery Disease, Hx Deep Vein Thrombosis, Hx Embolism, Hx Hypercholesterolemia, Hx Hypotension, Hx Hypertension, Hx Pacemaker/ICD, Hx Peripheral Vascular Disease, Hx Rheumatic Fever, Hx Valvular Heart Disease Respiratory History: Reports: Hx Chronic Obstructive Pulmonary Disease (COPD) Denies: Hx Asthma, Hx Chronic Bronchitis, Hx Cystic Fibrosis, Hx Lung Cancer , Hx Pleural Effusion, Hx Pneumonia, Hx Pulmonary Edema, Hx Pulmonary Embolism, Hx Seasonal Allergies, Hx Sleep Apnea, Other Respiratory Problems/Disorders GI History: Reports: Other GI Disorders - perforated intestine repair Denies: Hx Cirrhosis, Hx Crohn's Disease, Hx Diverticulosis, Hx Gall Bladder Disease, Hx Gastroesophageal Reflux Disease, Hx Gastrointestinal Bleed, Hx Hiatal Hernia, Hx Irritable Bowel, Hx Jaundice, Hx Obstructive Bowel, Hx Ileostomy, Hx Pyloric Stenosis, Hx Ulcer History: Denies: Hx Acute Renal Failure, Hx Benign Prostatic Hyperplasia, Hx Chronic Renal Failure, Hx Dialysis, Hx Kidney Infection, Hx Kidney Stones, Hx Renal Disease, Other Problems/Disorders Musculoskeletal History: Reports: Hx Arthritis, Hx Orthopedic Injury - right knee patella fx Denies: Hx Back Problems, Hx Bursitis, Hx Congenital Bone Abnormalities, Hx Fibromyalgia, Hx Gout, Hx Osteoporosis, Hx Scoliosis, Hx Tendonitis, Other Musculoskeletal History Sensory History: Reports: Hx Cataracts, Hx Contacts or Glasses Denies: Hx Eye Injury, Hx Eye Prosthesis, Hx Glaucoma, Hx Legally Blind, Hx Macular Degeneration, Hx Vision Problem, Hx Deafness, Hx Hearing Aid, Hx Hearing Problem, Other Sensory Impairments Opthamlomology History: Reports: Hx Cataracts, Hx Contacts or Glasses Denies: Hx Eye Injury, Hx Eye Prosthesis, Hx Glaucoma, Hx Legally Blind, Hx Macular Degeneration, Hx Vision Problem, Other Sensory Impairments Neurological History: Reports: Hx Headaches - from this current illness Denies: Hx Dementia, Hx Developmental Delay, Hx Migraine, Hx Nerve Disease, Hx Seizures, Hx Spinal Cord Injury, Hx Transient Ischemic Attacks (TIA), Other Neuro Impairments/Disorders Psychiatric History: Denies: Hx Anxiety, Hx Attention Deficit Hyperactivity Disorder, Hx Eating Disorder, Hx Depression, Hx Panic Disorder, Hx Post Traumatic Stress Disorder, Hx Inpatient Treatment, Hx Community Mental Health Tx, Hx Schizophrenia, Hx Bipolar Disorder, Hx Suicide Attempt, Hx of Violent Episodes Against Others, Hx Substance Abuse, Other Psychiatric Issues/Disorders - Cancer History Hx Radiation Therapy: No Hx Palliative Cancer Treatment: No - Surgical History Surgery Procedure, Year, and Place: 12/23/2012-RT. KNEE ARTHROSCOPY-[facility]. 01/09/2015-abd surgery- benign colon [facility] [facility] [place]BIL[facility]AL [facility]ARACTS [facility]- 36 YEARS AGO Hx Anesthesia Reactions: No - Immunization History Date of Tetanus Vaccine: up to date Date of Influenza Vaccine: Fall 2015 Infectious Disease History: No Infectious Disease History: Denies: Hx Clostridium Difficile, Hx Hepatitis, Hx Human Immunodeficiency Virus (HIV), Hx of Known/Suspected MRSA, Hx Shingles, Hx Tuberculosis, Hx Known/ Suspected VRE, Hx Known/Suspected VRSA, History Other Infectious Disease, Traveled Outside the [place] in Last 30 Days - Family History Known Family History: Positive: Other - [place] - father - Social History Alcohol Use: Rare Substance Use Type: Reports: None Hx Tobacco Use: Yes Smoking Status (MU): Former Smoker Type: Cigarettes Amount Used/How Often: 1/2 PPD X 40 YEARS Length of Time of Smoking/Using Tobacco: whole life Have You Smoked in the Last Year: Yes Review of Systems Positive: Other - Right leg pain Positive: Headache All Other Systems Reviewed And Are Negative: Yes Physical Exam - Summary Physical Exam Summary: Appearance: The patient is well-nourished in no acute distress and in no acute pain. Skin: The skin is warm and dry and skin color reflects adequate perfusion. HEENT: ~The head is normocephalic and atraumatic. The pupils are equal and reactive. The conjunctivae are clear and without drainage. ~Nares are patent and without drainage. ~Mouth reveals moist mucous membranes and the throat is without erythema and exudate. ~The external ears are intact. The ear canals are patent and without drainage. The tympanic membranes are intact. Neck: the neck is supple with full range of motion and non-tender. There are no carotid bruits. ~There is no neck vein distension. Respiratory: Chest is non-tender. ~Lungs are clear to auscultation and breath sounds are symmetrical and equal. Cardiovascular: Heart is regular rate and rhythm. ~There is no murmur or rub auscultated. ~~There is no peripheral edema and pulses are symmetrical and equal. Abdomen: The abdomen is soft and non-tender. ~There are normal bowel sounds heard in all four quadrants and there is no organomegaly palpated. Musculoskeletal: There is tenderness over the hip and tenderness to any range of motion. The right lower extremity is shortened and externally rotated. Neurological: Patient is alert and oriented to person, place and time. ~The patient has symmetrical motor strength in all four extremities. ~Cranial nerves are grossly intact. Deep tendon reflexes are symmetrical and equal in all four extremities. Distal neurovascular is intact. Psychiatric: The patient has an appropriate affect and does not exhibit any anxiety or depression. Triage Information Reviewed: Yes Vital Signs On Initial Exam: Initial Vitals Temp Pulse Resp BP Pulse Ox 100.4 F 72 18 146/62 97 07/24/17 16:44 07/24/17 16:44 07/24/17 16:44 07/24/17 16:44 07/24/17 16:44 Vital Signs Reviewed: Yes Diagnostics - Vital Signs Vital Signs Temp Pulse Resp BP Pulse Ox 07/24/17 16:44 100.4 F 72 18 146/62 97 - Laboratory Lab Results: Lab Results 07/24/17 07/24/17 07/24/17 Range/Units 19:45 19:45 19:45 WBC (3.5-10.8) 10^3/ul RBC (4.0-5.4) 10^6/ul Hgb (12.0-16.0) g/dl Hct (35-47) % MCV (80-97) fL MCH (27-31) pg MCHC (31-36) g/dl RDW (10.5-15) % Plt Count (150-450) 10^3/ul MPV (7.4-10.4) um3 Neut % (Auto) (38-83) % Lymph % (Auto) (25-47) % [place] % (Auto) (1-9) % Eos % (Auto) (0-6) % Baso % (Auto) (0-2) % Absolute Neuts (auto) (1.5-7.7) 10^3/ul Absolute Lymphs (auto) (1.0-4.8) 10^3/ul Absolute Monos (auto) (0-0.8) 10^3/ul Absolute Eos (auto) (0-0.6) 10^3/ul Absolute Basos (auto) (0-0.2) 10^3/ul Absolute Nucleated RBC 10^3/ul Nucleated RBC % INR (Anticoag Therapy) 0.95 (0.77-1.02) Sodium 137 (133-145) mmol/L Potassium 4.3 (3.5-5.0) mmol/L Chloride 105 (101-111) mmol/L Carbon Dioxide 25 (22-32) mmol/L Anion Gap 7 (2-11) mmol/L BUN 18 (6-24) mg/dL Creatinine 0.92 (0.51-0.95) mg/dL Est GFR ( Amer) 75.7 (>60) Est GFR (Non-Af Amer) 58.9 (>60) BUN/Creatinine Ratio 19.6 (8-20) Glucose 121 H (70-100) mg/dL Calcium 9.2 (8.6-10.3) mg/dL Total Bilirubin 0.70 (0.2-1.0) mg/dL AST 14 (13-39) U/L ALT 12 (7-52) U/L Alkaline Phosphatase 80 (34-104) U/L Total Protein 7.3 (6.4-8.9) g/dL Albumin 3.7 (3.2-5.2) g/dL Globulin 3.6 (2-4) g/dL Albumin/Globulin Ratio 1.0 (1-3) Blood Type A Positive Antibody Screen Negative 07/24/17 Range/Units 19:45 WBC 14.2 H (3.5-10.8) 10^3/ul RBC 4.48 (4.0-5.4) 10^6/ul Hgb 13.6 (12.0-16.0) g/dl Hct 41 (35-47) % MCV 92 (80-97) fL MCH 30 (27-31) pg MCHC 33 (31-36) g/dl RDW 14 (10.5-15) % Plt Count 252 (150-450) 10^3/ul MPV 8 (7.4-10.4) um3 Neut % (Auto) 85.1 H (38-83) % Lymph % (Auto) 9.9 L (25-47) % [place] % (Auto) 4.4 (1-9) % Eos % (Auto) 0.2 (0-6) % Baso % (Auto) 0.4 (0-2) % Absolute Neuts (auto) 12.1 H (1.5-7.7) 10^3/ul Absolute Lymphs (auto) 1.4 (1.0-4.8) 10^3/ul Absolute Monos (auto) 0.6 (0-0.8) 10^3/ul Absolute Eos (auto) 0 (0-0.6) 10^3/ul Absolute Basos (auto) 0.1 (0-0.2) 10^3/ul Absolute Nucleated RBC 0 10^3/ul Nucleated RBC % 0.1 INR (Anticoag Therapy) (0.77-1.02) Sodium (133-145) mmol/L Potassium (3.5-5.0) mmol/L Chloride (101-111) mmol/L Carbon Dioxide (22-32) mmol/L Anion Gap (2-11) mmol/L BUN (6-24) mg/dL Creatinine (0.51-0.95) mg/dL Est GFR ( Amer) (>60) Est GFR (Non-Af Amer) (>60) BUN/Creatinine Ratio (8-20) Glucose (70-100) mg/dL Calcium (8.6-10.3) mg/dL Total Bilirubin (0.2-1.0) mg/dL AST (13-39) U/L ALT (7-52) U/L Alkaline Phosphatase (34-104) U/L Total Protein (6.4-8.9) g/dL Albumin (3.2-5.2) g/dL Globulin (2-4) g/dL Albumin/Globulin Ratio (1-3) Blood Type Antibody Screen Result Diagrams: 07/24/17 19:45 07/24/17 19:45 Lab Statement: Any lab studies that have been ordered have been reviewed, and results considered in the medical decision making process. - Radiology CXR Xray Interpretation: No Acute Changes - POSSIBLE SMALL RIGHT PLEURAL EFFUSION. Dr. Calle has reviewed this report. Radiology Interpretation Completed By: Radiologist Pelvis XR Xray Interpretation: No Acute Changes - FRACTURE OF THE PROXIMAL RIGHT FEMUR PREVIOUSLY DESCRIBED. NO ADDITIONAL FRACTURE IS SEEN. Dr. Calle has reviewed this report. Radiology Interpretation Completed By: Radiologist Femur XR Xray Interpretation: Positive (See Comments) - THERE IS A FRACTURE AT THE BASE OF THE RIGHT FEMORAL NECK EXTENDING THROUGH THE INTERTROCHANTERIC REGION SLIGHTLY DISPLACED. Dr. Calle has reviewed this report. Radiology Interpretation Completed By: Radiologist Lower Extremity Course/Dx - Course Course Of Treatment: Ms. Vela took a mechanical fall and broke her right hip. She has been given some pain control and is being admitted to the hospitalist service with Ortho consult. - Diagnoses Differential Diagnosis/HQI/PQRI: Positive: Other - broken hip Provider Diagnoses: Intertrochanteric fracture of left hip - Physician Notifications Discussed Care Of Patient With: Christina Sylvester Time Discussed With Above Provider: 17:48 Instructed by Provider To: Other - Consulted Dr. Sylvester who accepts the pt for admisison. Discharge - Discharge Plan Condition: Stable Disposition: ADMITTED TO [facility] The documentation as recorded by the Brijesh clemens Jennifer accurately reflects the service I personally performed and the decisions made by me, Teddy Calle MD.
--- NOTE | 2017-07-25 19:16 | PN ---
Subjective Date of Service: 07/25/17 Interval History: Denies right hip pain, Denies chest pain or shortness of breath, Denies abd pain. Denies N/V/D Family History: Unchanged from Admission - CV non-contributory, father and brother with lung cancer Social History: Unchanged from Admission - Quit smoking 1 year ago, denies ETOH use, no illicit drug use. and lives with . Past Medical History: Unchanged from Admission Objective Active Medications: Acetaminophen (Tylenol Tab*) 650 mg PO Q4H PRN PRN Reason: pain, fever Last Admin: 07/25/17 16:06 Dose: 650 mg Albuterol/Ipratropium (Duoneb (Albuterol 2.5 Mg/Ipratropium 0.5 Mg)) 1 neb INH Q6H PRN PRN Reason: SOB/WHEEZING Atorvastatin Calcium (Lipitor*) 40 mg PO DAILY FOR[facility]LY [facility], 1928[facility]1983 Last Admin: 07/25/17 09:34 Dose: 40 mg Clopidogrel Bisulfate (Plavix Tab*) 75 mg PO DAILY [facility], [facility] Last Admin: 07/25/17 09:34 Dose: 75 mg Diltiazem HCl (Cardizem Cd Cap*) 120 mg PO DAILY [facility], [facility]1983 Last Admin: 07/25/17 09:35 Dose: 120 mg Docusate Sodium (Colace Cap*) 100 mg PO BID [facility], 1928[facility]1983 Last Admin: 07/25/17 09:34 Dose: 100 mg Cefazolin Sodium/Dextrose (Kefzol 1 Gm In Dextrose Duplex (*)) 1 gm in 50 mls @ 200 mls/hr IVPB Q8H FOR[facility], 1928[facility]1983 Last Admin: 07/25/17 16:59 Dose: 200 mls/hr Morphine Sulfate (Morphine Inj (Syringe)*) 2 mg IV Q4H PRN PRN Reason: PAIN Last Admin: 07/25/17 01:11 Dose: 2 mg Ondansetron HCl (Zofran Inj*) 4 mg IV Q6H PRN PRN Reason: NAUSEA Last Admin: 07/25/17 01:37 Dose: 4 mg Oxycodone/Acetaminophen (Percocet 5/325 Tab*) 1 tab PO Q4H PRN PRN Reason: PAIN - MILD TO MODERATE Polyethylene Glycol/Electrolytes (Miralax*) 17 gm PO DAILY [facility] Last Admin: 07/25/17 09:35 Dose: Not Given Vital Signs - 8 hr 07/25/17 15:31 Temperature 98.1 F Pulse Rate 79 Respiratory 16 Rate Blood Pressure 120/57 (mmHg) O2 Sat by Pulse 95 Oximetry Oxygen Devices in Use Now: None Appearance: appears comfortable sitting in the bed Eyes: No Scleral Icterus Ears/Nose/Mouth/Throat: Clear Oropharnyx, Mucous Membranes Moist Neck: NL Appearance and Movements; NL JVP, Trachea Midline Respiratory: Symmetrical Chest Expansion and Respiratory Effort, Clear to Auscultation Cardiovascular: NL Sounds; No Murmurs; No JVD, RRR, No Edema Abdominal: NL Sounds; No Tenderness; No Distention Extremities: No Edema, No Clubbing, Cyanosis Skin: No Rash or Ulcers, - - dressing intact to right hip Neurological: Alert and Oriented x 3 Nutrition: Taking PO's Result Diagrams: 07/24/17 19:45 07/24/17 19:45 Additional Lab and Data: Lab Results 07/24/17 07/24/17 07/24/17 Range/Units 19:45 19:45 19:45 WBC (3.5-10.8) 10^3/ul RBC (4.0-5.4) 10^6/ul Hgb (12.0-16.0) g/dl Hct (35-47) % MCV (80-97) fL MCH (27-31) pg MCHC (31-36) g/dl RDW (10.5-15) % Plt Count (150-450) 10^3/ul MPV (7.4-10.4) um3 Neut % (Auto) (38-83) % Lymph % (Auto) (25-47) % [place] % (Auto) (1-9) % Eos % (Auto) (0-6) % Baso % (Auto) (0-2) % Absolute Neuts (auto) (1.5-7.7) 10^3/ul Absolute Lymphs (auto) (1.0-4.8) 10^3/ul Absolute Monos (auto) (0-0.8) 10^3/ul Absolute Eos (auto) (0-0.6) 10^3/ul Absolute Basos (auto) (0-0.2) 10^3/ul Absolute Nucleated RBC 10^3/ul Nucleated RBC % INR (Anticoag Therapy) 0.95 (0.77-1.02) Sodium 137 (133-145) mmol/L Potassium 4.3 (3.5-5.0) mmol/L Chloride 105 (101-111) mmol/L Carbon Dioxide 25 (22-32) mmol/L Anion Gap 7 (2-11) mmol/L BUN 18 (6-24) mg/dL Creatinine 0.92 (0.51-0.95) mg/dL Est GFR ( Amer) 75.7 (>60) Est GFR (Non-Af Amer) 58.9 (>60) BUN/Creatinine Ratio 19.6 (8-20) Glucose 121 H (70-100) mg/dL Calcium 9.2 (8.6-10.3) mg/dL Total Bilirubin 0.70 (0.2-1.0) mg/dL AST 14 (13-39) U/L ALT 12 (7-52) U/L Alkaline Phosphatase 80 (34-104) U/L Total Protein 7.3 (6.4-8.9) g/dL Albumin 3.7 (3.2-5.2) g/dL Globulin 3.6 (2-4) g/dL Albumin/Globulin Ratio 1.0 (1-3) Blood Type A Positive Antibody Screen Negative 07/24/17 Range/Units 19:45 WBC 14.2 H (3.5-10.8) 10^3/ul RBC 4.48 (4.0-5.4) 10^6/ul Hgb 13.6 (12.0-16.0) g/dl Hct 41 (35-47) % MCV 92 (80-97) fL MCH 30 (27-31) pg MCHC 33 (31-36) g/dl RDW 14 (10.5-15) % Plt Count 252 (150-450) 10^3/ul MPV 8 (7.4-10.4) um3 Neut % (Auto) 85.1 H (38-83) % Lymph % (Auto) 9.9 L (25-47) % [place] % (Auto) 4.4 (1-9) % Eos % (Auto) 0.2 (0-6) % Baso % (Auto) 0.4 (0-2) % Absolute Neuts (auto) 12.1 H (1.5-7.7) 10^3/ul Absolute Lymphs (auto) 1.4 (1.0-4.8) 10^3/ul Absolute Monos (auto) 0.6 (0-0.8) 10^3/ul Absolute Eos (auto) 0 (0-0.6) 10^3/ul Absolute Basos (auto) 0.1 (0-0.2) 10^3/ul Absolute Nucleated RBC 0 10^3/ul Nucleated RBC % 0.1 INR (Anticoag Therapy) (0.77-1.02) Sodium (133-145) mmol/L Potassium (3.5-5.0) mmol/L Chloride (101-111) mmol/L Carbon Dioxide (22-32) mmol/L Anion Gap (2-11) mmol/L BUN (6-24) mg/dL Creatinine (0.51-0.95) mg/dL Est GFR ( Amer) (>60) Est GFR (Non-Af Amer) (>60) BUN/Creatinine Ratio (8-20) Glucose (70-100) mg/dL Calcium (8.6-10.3) mg/dL Total Bilirubin (0.2-1.0) mg/dL AST (13-39) U/L ALT (7-52) U/L Alkaline Phosphatase (34-104) U/L Total Protein (6.4-8.9) g/dL Albumin (3.2-5.2) g/dL Globulin (2-4) g/dL Albumin/Globulin Ratio (1-3) Blood Type Antibody Screen Diagnostic Imaging: FEMUR XRAY Patient Name: CRAIG PERRY Medical Record#: [id number] Ordering Physician: Teddy Calle MD Acct.#: [id number] : 1940 Age: 77 Sex: F Location: EMERGENCY DEPARTMENT Exam Date: 07/24/171715 ADM Status: REG ER Order Information: FEMUR RIGHT Accession Number: [id number] CPT: 51356 INDICATION: Right femur injury. TECHNIQUE: 2 views of the right femur were obtained. FINDINGS: There is a fracture extending through the base of the femoral neck through the intertrochanteric region. The fracture fragments are slightly displaced without evidence for gross angulation. No additional fractures are seen. IMPRESSION: THERE IS A FRACTURE AT THE BASE OF THE RIGHT FEMORAL NECK EXTENDING THROUGH THE INTERTROCHANTERIC REGION SLIGHTLY DISPLACED. <Electronically signed by Karlo Savage MD in [place]> 07/24/171809 Dictated By: Karlo Savage MD Dictated Date/Time: 07/24/171809 Transcribed Date/Time: 07/24/171808 Copy to: CC:Misha Joshi MD; Teddy Calle MD Imaging - [facility] - [facility] - [facility] [address] [address] ph [phone]) ph ([phone]) ph ([phone]) CHEST XRAY Patient Name: CRAIG PERRY Medical Record#: [id number] Ordering Physician: Teddy Calle MD Acct.#: [id number] : 1940 Age: 77 Sex: F Location: EMERGENCY DEPARTMENT Exam Date: 07/24/17 ADM Status: REG ER Order Information: CHEST 1 VW Accession Number: [id number] CPT: 45277 INDICATION: Trauma, hip fracture. COMPARISON: Comparison is made with a prior study from July 15, 2017. TECHNIQUE: A single AP view of the chest was obtained supine. FINDINGS: The heart appears mildly enlarged. The lungs are hyperinflated and clear. There is blunting of the right costophrenic angle possibly indicating a small pleural effusion. IMPRESSION: POSSIBLE SMALL RIGHT PLEURAL EFFUSION. <Electronically signed by Karlo Savage MD in [place]> 07/24/171812 Dictated By: Karlo Savage MD Dictated Date/Time: 07/24/171812 Transcribed Date/Time: 07/24/171811 Copy to: EKG Data: EKG reviewed. RSR, Old Qwave present. No acute ST segment changes noted, No acute changes from last EKG. Assess/Plan/Problems-Billing Assessment: This is a 77 year old female patient with mechanical fall resulting in a right femoral neck fracture. We are being requested to evaluate for pre-operative optimization for ORIF planned for this evening and will admit to medical service. surgery last night 07/24/17. . - Patient Problems (1) Hip fracture, right Current Visit: Yes Status: Acute Code(s): S72.001A - FRACTURE OF UNSP PART OF NECK OF RIGHT FEMUR, INIT SNOMED Code(s): 207640896 Comment: management per orthopedics PT/OT as per orthopedics WBAT (2) Tobacco abuse Current Visit: Yes Status: Acute Code(s): Z72.0 - TOBACCO USE SNOMED Code( s): 862226471 (3) Fall Current Visit: Yes Status: Acute (4) Coronary artery disease Current Visit: No Status: Chronic Code(s): I25.10 - ATHSCL HEART DISEASE OF [place] CORONARY ARTERY W/O ANG PCTRS SNOMED Code(s): 38329945 Comment: continue lipitor (5) Hypertension Current Visit: No Status: Acute Code(s): I10 - ESSENTIAL (PRIMARY) HYPERTENSION SNOMED Code(s): 78868000 Comment: stable Continue Diltiazem (6) History of TIA (transient ischemic attack) Current Visit: Yes Status: Acute Comment: continue plavix (7) Full code status Current Visit: No Status: Acute Code(s): Z78.9 - OTHER SPECIFIED HEALTH STATUS SNOMED Code(s): 060131686 Comment: (8) DVT prophylaxis Current Visit: No Status: Acute Code(s): ULV9166 - SNOMED Code(s): 653821425 Comment: Per orthopedics Status and Disposition: POD #0. continue PT D/C when cleared by ortho
--- NOTE | 2017-07-25 20:13 | RAD ---
INDICATION: Right knee injury. TECHNIQUE: 2 views of the right knee were obtained. FINDINGS: The bones appear osteopenic and are in normal alignment. No joint effusion or fracture is seen. There is chondrocalcinosis in the lateral compartment. The joint spaces appear relatively maintained. IMPRESSION: NO EVIDENCE FOR FRACTURE.
--- NOTE | 2017-07-25 21:09 | PN ---
Hospitalist Progress Note Date of Service: 07/25/17 Per RN, patient had run of Vtach 5 beats, asymptomatic. Orderded BMP and mag level and 1 gram mag sufate now. Remain on tele.
[2017-07-25] MEDS ORDERED: Magnesium Sulfate 1 GM IV* 1 GM/100 ML BAG IV ONE (22:00)
[2017-07-25 22:26] LABS: EGFR Non-African American 63.7 (>60)
[2017-07-26] MEDS: ceFAZolin 1 GM in Dextrose (*) 1 GM/50 ML BAG IVPB SCH (00:50)
[2017-07-26 05:28] LABS: ABS Basophils 0 10^3/ul (0-0.2); ABS Eosinophils 0 10^3/ul (0-0.6); ABS Lymphocytes 1.2 10^3/ul (1.0-4.8); ABS Monocytes 0.9 10^3/ul (0-0.8); ABS Neutrophils 14.7 10^3/ul (1.5-7.7); ABS Nucleated RBC 0 10^3/ul; Eosinophil % 0.1 % (0-6); Hematocrit 31 % (35-47); Hemoglobin 10.3 g/dl (12.0-16.0); Lymphocyte % 7.3 % (25-47); Mean Corpuscular HGB Conc 34 g/dl (31-36); Mean Corpuscular Hemoglobin 31 pg (27-31); Mean Corpuscular Volume 92 fL (80-97); Mean Platelet Volume 8 um3 (7.4-10.4); Nucleated Red Blood Cells % 0; Platelet Count 193 10^3/ul (150-450); Red Blood Count 3.32 10^6/ul (4.0-5.4); Red Cell Distribution Width 14 % (10.5-15); White Blood Count 16.9 10^3/ul (3.5-10.8)
[2017-07-26 05:45] LABS: EGFR Non-African American 70.2 (>60)
[2017-07-26] MEDS: Acetaminophen TAB* 325 MG PO PRN ×3 (07:51→20:36)
[2017-07-26] MEDS: Polyethylene Glycol 3350* 17 GM PACKET PO SCH (09:14)
[2017-07-26] MEDS: Docusate CAP* 100 MG PO SCH ×2 (09:16→20:37)
[2017-07-26] MEDS: Atorvastatin* 40 MG TAB PO SCH (09:16)
[2017-07-26] MEDS: Clopidogrel TAB* 75 MG PO SCH (09:16)
[2017-07-26] MEDS: Diltiazem CD CAP* 120 MG PO SCH (09:16)
--- NOTE | 2017-07-26 10:41 | PN ---
Progress Note - Progress Note Date of Service: 07/26/17 SOAP: Subjective: Pt is doing well. Pain controlled with tylenol. Doing well with PT. Denies calf pain , cp/sob, f/c. Has not had BM yet. Objective: PE: 77 y/o WDWN F NAD RLE- dressing c/d/i, patella tender to light touch, +DF/PF ankle, calf soft NT, NVI Vital Signs Temp Pulse Resp BP Pulse Ox 97.9 F 70 18 109/52 96 07/26/17 07:34 07/26/17 07:34 07/26/17 08:00 07/26/17 07:34 07/26/17 07:34 Laboratory Results - last 24 hr 07/25/17 07/26/17 07/26/17 22:05 04:51 04:51 WBC 16.9 H RBC 3.32 L Hgb 10.3 L Hct 31 L MCV 92 MCH 31 MCHC 34 RDW 14 Plt Count 193 MPV 8 Neut % (Auto) 87.0 H Lymph % (Auto) 7.3 L [place] % (Auto) 5.5 Eos % (Auto) 0.1 Baso % (Auto) 0.1 Absolute Neuts (auto) 14.7 H Absolute Lymphs (auto) 1.2 Absolute Monos (auto) 0.9 H Absolute Eos (auto) 0 Absolute Basos (auto) 0 Absolute Nucleated RBC 0 Nucleated RBC % 0 Sodium 137 138 Potassium 4.3 4.3 Chloride 108 109 Carbon Dioxide 24 25 Anion Gap 5 4 BUN 14 13 Creatinine 0.86 0.79 Est GFR ( Amer) 81.9 90.3 Est GFR (Non-Af Amer) 63.7 70.2 BUN/Creatinine Ratio 16.3 16.5 Glucose 148 H 144 H Calcium 8.3 L 8.1 L Magnesium 2.4 Assessment: Stable 77 y/o female s/p ORIF [address] Aldana due to R intertroch fx Plan: - Cont Pain mgmt -Cont bowel regimen - dressing change by provider tomorrow - PT/ OT- WBAT - Lovenox x 1 month post-op - H&H stable, continue to monitor - R knee pain d/t probabl contusion, xray neg for fx, will cont to follow - dispo per medicine. Likely to PMRU 2/ or 2/5 upon availability
--- NOTE | 2017-07-26 13:22 | PN ---
Subjective Date of Service: 07/26/17 Interval History: Ms. Vela states that she is feeling quite well today. She denies chest pain, SOB, nausea, or abdominal pain. She has some right hip pain but it is well- controlled on the current regimen. Family History: Unchanged from Admission - CV non-contributory, father and brother with lung cancer Social History: Unchanged from Admission - Quit smoking 1 year ago, denies ETOH use, no illicit drug use. and lives with . Past Medical History: Unchanged from Admission Objective Active Medications: Acetaminophen (Tylenol Tab*) 650 mg PO Q4H PRN Albuterol/Ipratropium (Duoneb (Albuterol 2.5 Mg/Ipratropium 0.5 Mg)) 1 neb INH Q6H PRN Atorvastatin Calcium (Lipitor*) 40 mg PO DAILY HELLEN Clopidogrel Bisulfate (Plavix Tab*) 75 mg PO DAILY HELLEN Diltiazem HCl (Cardizem Cd Cap*) 120 mg PO DAILY HELLEN Docusate Sodium (Colace Cap*) 100 mg PO BID HELLEN Morphine Sulfate (Morphine Inj (Syringe)*) 2 mg IV Q4H PRN Ondansetron HCl (Zofran Inj*) 4 mg IV Q6H PRN Oxycodone/Acetaminophen (Percocet 5/325 Tab*) 1 tab PO Q4H PRN Polyethylene Glycol/Electrolytes (Miralax*) 17 gm PO DAILY HELLEN Vital Signs: Temp Pulse Resp BP Pulse Ox 97.8 F 76 14 107/44 96 07/26/17 11:49 07/26/17 11:49 07/26/17 11:49 07/26/17 11:49 07/26/17 11:49 Oxygen Devices in Use Now: None Appearance: Female sitting up in chair in NAD Eyes: No Scleral Icterus Ears/Nose/Mouth/Throat: Mucous Membranes Moist Neck: Trachea Midline Respiratory: Symmetrical Chest Expansion and Respiratory Effort, Clear to Auscultation Cardiovascular: NL Sounds; No Murmurs; No JVD, No Edema Abdominal: NL Sounds; No Tenderness; No Distention Lymphatic: No Cervical Adenopathy Extremities: No Edema Skin: No Rash or Ulcers Neurological: Alert and Oriented x 3, NL Muscle Strength and Tone Nutrition: Taking PO's Result Diagrams: 07/26/17 04:51 07/26/17 04:51 Additional Lab and Data: . Diagnostic Imaging: . EKG Data: . Assess/Plan/Problems-Billing Assessment: Ms. Vela is a 77 year old female patient with PMH of CAD, HTN, and TIA who was admitted on 07/24/17 after a mechanical fall resulting in a right femoral neck fracture. - Patient Problems (1) Hip fracture, right Comment: - Management per Ortho. (2) History of TIA (transient ischemic attack) Comment: - Continue plavix. (3) Hypertension Comment: - SBP 100-140s. - Continue cardizem. (4) Coronary artery disease Comment: - Asymptomatic. - Continue atorvastatin. (5) DVT prophylaxis Comment: - Lovenox for one month per ortho. (6) Full code status Comment: Status and Disposition: Inpatient.
[2017-07-26] MEDS ORDERED: Enoxaparin(*) 40 MG/0.4 ML SYR SUBCUT SCH (16:00)
[2017-07-26] MEDS ORDERED: Magnesium Hydroxide LIQ* 30 ML UDC PO PRN (16:04)
[2017-07-27] MEDS: Acetaminophen TAB* 325 MG PO PRN ×2 (02:47→08:52)
[2017-07-27 07:47] VITALS: BP 99/55
[2017-07-27] MEDS: Clopidogrel TAB* 75 MG PO SCH (08:53)
[2017-07-27] MEDS: Diltiazem CD CAP* 120 MG PO SCH (08:53)
[2017-07-27] MEDS: Atorvastatin* 40 MG TAB PO SCH (08:53)
[2017-07-27] MEDS: Polyethylene Glycol 3350* 17 GM PACKET PO SCH (08:54)
[2017-07-27] MEDS: Docusate CAP* 100 MG PO SCH (08:54)
--- NOTE | 2017-07-27 09:21 | PN ---
Progress Note - Progress Note Date of Service: 07/27/17 SOAP: Subjective: Pt is doing well pain controlled with tylenol. Some right knee pain. Doing well with PT. Denies CP/SOB, F/C or calf pain. Had a BM Objective: PE: 77 y/o WDWN F, NAD RLE: dressing changes, inc healing well with no discharge or erythema, +DF/PF ankle, calf soft NT, NVI Vital Signs Temp Pulse Resp BP Pulse Ox 98.5 F 73 16 99/55 96 07/27/17 07:27 07/27/17 07:27 07/27/17 07:55 07/27/17 07:27 07/27/17 07:27 Assessment: Stable 77 y/o female s/p ORIF 07/[address] Aldana due to R intertroch fx Plan: - Cont Pain mgmt, pt only needing tylenol -Cont bowel regimen as needed - Cont PT/ OT- WBAT - Lovenox x 1 month post-op - Possible d/c to PMRU today pending bed availability - Ok to shower tomorrow. No submerging incision. Redress with gauze and tegaderm - F/U with Katya Han 13-15 days post op
--- NOTE | 2017-07-27 11:28 | PN ---
Subjective Date of Service: 07/27/17 Interval History: Ms. Vela states that she is feeling very well today. She has been up ambulating with PT on the unit. She denies any complaint. Family History: Unchanged from Admission - CV non-contributory, father and brother with lung cancer Social History: Unchanged from Admission - Quit smoking 1 year ago, denies ETOH use, no illicit drug use. and lives with . Past Medical History: Unchanged from Admission Objective Active Medications: Acetaminophen (Tylenol Tab*) 650 mg PO Q4H PRN Albuterol/Ipratropium (Duoneb (Albuterol 2.5 Mg/Ipratropium 0.5 Mg)) 1 neb INH Q6H PRN Atorvastatin Calcium (Lipitor*) 40 mg PO DAILY HELLEN Clopidogrel Bisulfate (Plavix Tab*) 75 mg PO DAILY HELLEN Diltiazem HCl (Cardizem Cd Cap*) 120 mg PO DAILY HELLEN Docusate Sodium (Colace Cap*) 100 mg PO BID HELLEN Enoxaparin Sodium (Lovenox(*)) 40 mg SUBCUT Q24H HELLEN Magnesium Hydroxide (Milk Of Magnesia Liq*) 30 ml PO Q4H PRN Morphine Sulfate (Morphine Inj (Syringe)*) 2 mg IV Q4H PRN Ondansetron HCl (Zofran Inj*) 4 mg IV Q6H PRN Oxycodone/Acetaminophen (Percocet 5/325 Tab*) 1 tab PO Q4H PRN Polyethylene Glycol/Electrolytes (Miralax*) 17 gm PO DAILY HELLEN Vital Signs: Temp Pulse Resp BP Pulse Ox 98.5 F 73 16 99/55 96 07/27/17 07:27 07/27/17 07:27 07/27/17 07:55 07/27/17 07:27 07/27/17 07:27 Oxygen Devices in Use Now: None Appearance: Elderly female lying in bed in NAD Eyes: No Scleral Icterus Neck: NL Appearance and Movements; NL JVP Respiratory: Symmetrical Chest Expansion and Respiratory Effort, Clear to Auscultation Cardiovascular: NL Sounds; No Murmurs; No JVD, No Edema Abdominal: NL Sounds; No Tenderness; No Distention Lymphatic: No Cervical Adenopathy Extremities: No Edema Skin: No Rash or Ulcers Neurological: Alert and Oriented x 3, NL Muscle Strength and Tone Nutrition: Taking PO's Result Diagrams: 07/26/17 04:51 07/26/17 04:51 Additional Lab and Data: . Diagnostic Imaging: . EKG Data: . Assess/Plan/Problems-Billing Assessment: Ms. Vela is a 77 year old female patient with PMH of CAD, HTN, and TIA who was admitted on 07/24/17 after a mechanical fall resulting in a right femoral neck fracture. - Patient Problems (1) Hip fracture, right Comment: - Management per Ortho. (2) History of TIA (transient ischemic attack) Comment: - Continue plavix. (3) Hypertension Comment: - SBP 100-140s. - Continue cardizem. (4) Coronary artery disease Comment: - Asymptomatic. - Continue atorvastatin. (5) DVT prophylaxis Comment: - Lovenox for one month per ortho. (6) Full code status Comment: Status and Disposition: Inpatient. Discharge to [facility].
--- NOTE | 2017-07-28 04:05 | DS ---
DISCHARGE SUMMARY: DATE OF ADMISSION: 07/24/17 DATE OF DISCHARGE: 07/27/17 ATTENDING PROVIDER: Errol Rosenberg MD * (DICTATED BY ALMA FAGAN NP) PRIMARY DIAGNOSIS: Status post right hip total arthroplasty. SECONDARY DIAGNOSES: 1. History of coronary artery disease with myocardial infarction 20 years ago. 2. Perforated intestine approximately 2 years ago. 3. History of transient ischemic attack. 4. Hypertension. MEDICATIONS: 1. Lovenox 40 mg subcutaneously daily x1 month. 2. Diltiazem CD 120 mg p.o. daily. 3. Clopidogrel 75 mg p.o. daily. 4. Atorvastatin 40 mg p.o. daily. 5. Oxycodone with acetaminophen 5/325, one tab p.o. q.4 hours p.r.n. 6. Docusate 100 mg p.o. b.i.d. 7. Tylenol 650 mg p.o. q.4 hours p.r.n. HOSPITAL COURSE: Ms. Vela is a 77-year-old female with a past medical history as mentioned above, who presented to the hospital after mechanical fall at home resulting in a right hip fracture. Please see the consultation from Orthopedic Surgery. At the time of admission, the patient had a chest x-ray, which showed "possible small right pleural effusion". She had a pelvis x-ray, which showed "fracture of the proximal right femur". She had a femur x-ray, which showed "fracture at the base of the right femoral neck extending through the intertrochanteric region, slightly displaced." Patient was taken to the OR on 07/24/17 for a right ORIF to the hip utilizing a cephalomedullary nail. Please see the operative report for complete details. In the postoperative period, Ms. Vela has been doing quite well. She is up and ambulating on the unit with Physical Therapy. However, she continues to need additional rehabilitation before returning to independent living. DISPOSITION: Will be to [facility]. DIET: Regular. ACTIVITY: As tolerated with hip precautions. FOLLOWUP PLANS: Please follow up with primary care physician, Dr. Joshi, at the end of RU stay. TIME SPENT: Approximately 60 minutes were spent on the discharge of this patient, more than half that time was spent with the patient at the bedside, reviewing the events leading up to this hospitalization, performing the physical examination, and reviewing the discharge plan to [facility]. ALMA FAGAN, RELIGIOUS EDUCATION COORDINATOR [id number]/[facility] #: [id number] [facility] CENTERBrittani
== END 2017-07-27 11:45 | DRG 482 ==
LOC: ED 16:10 → OR 20:51 → SSU 07-25 00:44 → OBSVTOIN 07-25 13:00
PROVIDERS: ADMIT Family Medicine; ATTEND Family Medicine
PROC: 0QS636Z Reposition Right Upper Femur with Intramedullary Internal Fixation Device, Percutaneous Approach (ICD-10-PCS; principal; 2017-07-24 21:30)
DX: S72.141A Displaced intertrochanteric fracture of right femur, initial encounter for closed fracture (principal); I11.9 Hypertensive heart disease without heart failure; Y92.009 Unspecified place in unspecified non-institutional (private) residence as the place of occurrence of the external cause; I25.10 Atherosclerotic heart disease of native coronary artery without angina pectoris; W01.0XXA Fall on same level from slipping, tripping and stumbling without subsequent striking against object, initial encounter; Z87.891 Personal history of nicotine dependence; Z79.891 Long term (current) use of opiate analgesic; Z79.899 Other long term (current) drug therapy; Z88.2 Allergy status to sulfonamides; Z91.09 Other allergy status, other than to drugs and biological substances; Z80.1 Family history of malignant neoplasm of trachea, bronchus and lung
CPT/HCPCS: 36415; 71045; 72170; 76000; 80048; 80053; 83735; 85025; 85610; 86850; 86900; 86901; 93005; 96374; 96375; 99284; A9270-GY; C1713; C1776; G8978-GP-CK; G8979-GP-CI; G8980-GP-CK; G8987-GO-CK; G8988-GO-CI; G8989-GO-CI; J0690; J1100; J1650; J2250; J2270; J2405; J2704; J3010; J3475

== ENCOUNTER 2017-07-27 11:46 | Inpatient (IN) | payer MEDICARE, BC ==
[2017-07-27] MEDS ORDERED: Magnesium Hydroxide LIQ* 30 ML UDC PO PRN (13:58)
[2017-07-27] MEDS ORDERED: Senna TAB PO PRN (13:58)
[2017-07-27] MEDS: Acetaminophen TAB* 325 MG PO PRN ×2 (14:32→21:19)
[2017-07-27] MEDS ORDERED: traMADol TAB* 50 MG PO PRN (16:19)
[2017-07-27] MEDS: Enoxaparin(*) 40 MG/0.4 ML SYR SUBCUT SCH (18:11)
--- NOTE | 2017-07-27 21:35 | HP ---
HISTORY AND PHYSICAL: DATE OF ADMISSION: 07/27/17 REASON FOR ADMISSION: Right hip fracture. HISTORY OF PRESENT ILLNESS: Mireille Vela is a 77-year-old female. She has a medical history significant for a TIA. She has been taking Plavix since that time. She was in her own health on 07/24/17 when she tripped over her dog and landed on her right side. She had excruciating pain in her right leg and was unable to get up. 911 was called and she was brought to the hospital. X-rays were taken, which showed intertrochanteric right proximal femur fracture. She was seen by Dr. Jesús Aldana. She was taken to the operating room on 07/24/17 and underwent an open reduction internal fixation of the right hip using a cephalomedullary nail. Postoperatively, her course was relatively benign. She was put on Lovenox for DVT prophylaxis. She was felt to have physical therapy and occupational therapy needs. She is now being admitted for inpatient rehab so that she might return to independent living. PAST MEDICAL HISTORY: Significant for the aforementioned TIA. Her regular doctor is Dr. Misha Joshi. She has had a right knee arthroscopy done and fractured her elbow many years ago. CURRENT MEDICATIONS: Include: 1. Lipitor. 2. Plavix. 3. Cardizem. 4. Lovenox for DVT prophylaxis. ALLERGIES: The patient has allergies to SULFA, ISOSORBIDE, DEMEROL, PROPRANOLOL. SOCIAL HISTORY: She is a former smoker, nondrinker. She lives with her in a ranch house with 1 step to enter. Prior to the accident, she was completely ambulatory. REVIEW OF SYSTEMS: The patient reports no current shortness of breath or chest pain. PHYSICAL EXAMINATION VITAL SIGNS: The patient's temperature is 98.5, blood pressure is 100/55, pulse 73, respirations 16. HEENT: Her extraocular movements are intact. Tongue is midline. NECK: Supple with no lymphadenopathy. LUNGS: Sound clear to auscultation bilaterally. HEART: Heart sounds are regular. S1 and S2 audible. ABDOMEN: Soft and nontender. EXTREMITIES: Her right hip has a wound, which is clean and dry. Peripheral pulses are intact. NEUROLOGIC: She is awake, alert, oriented. Muscle strength is 5/5 in both upper and lower extremities except the right lower extremity, which is 3/5 secondary to pain. FUNCTIONAL EXAM: She transfers with min assist. ASSESSMENT: Intertrochanteric fracture of right hip, status post ORIF of the same. PLAN: Integrate her into a comprehensive and therapeutic rehab program on the following goals: 1. Physical Therapy will see the patient. They are going to work on functional transfer training, ambulation training with a walker. 2. Occupational Therapy will see the patient, work on her activities of daily living including toileting and toilet transfers. 3. Lovenox for DVT prophylaxis. 4. Adequate analgesia. 5. Her bowels will be regulated. 6. [facility] Sponger will be closely involved to make sure that any services and equipment the patient requires are in place prior to discharge. 7. Family training as appropriate. 8. For her history of transient ischemic attack, we will continue Plavix and Lipitor. 9. Home with appropriate services. ESTIMATED LENGTH OF STAY: 7 to 10 days. [id number]/[facility] #: [id number] STEPHANE
[2017-07-28] MEDS: Docusate CAP* 100 MG PO SCH ×3 (01:50→19:33)
[2017-07-28 06:32] LABS: ABS Basophils 0.1 10^3/ul (0-0.2); ABS Eosinophils 0.4 10^3/ul (0-0.6); ABS Lymphocytes 1.6 10^3/ul (1.0-4.8); ABS Monocytes 0.7 10^3/ul (0-0.8); ABS Neutrophils 8.1 10^3/ul (1.5-7.7); ABS Nucleated RBC 0 10^3/ul; Eosinophil % 3.9 % (0-6); Hematocrit 34 % (35-47); Hemoglobin 11.3 g/dl (12.0-16.0); Lymphocyte % 14.6 % (25-47); Mean Corpuscular HGB Conc 34 g/dl (31-36); Mean Corpuscular Hemoglobin 31 pg (27-31); Mean Corpuscular Volume 92 fL (80-97); Mean Platelet Volume 8 um3 (7.4-10.4); Nucleated Red Blood Cells % 0; Platelet Count 232 10^3/ul (150-450); Red Blood Count 3.67 10^6/ul (4.0-5.4); Red Cell Distribution Width 14 % (10.5-15)
[2017-07-28 06:52] LABS: EGFR Non-African American 73.4 (>60)
[2017-07-28] MEDS: Clopidogrel TAB* 75 MG PO SCH (08:11)
[2017-07-28] MEDS: Diltiazem CD CAP* 120 MG PO SCH (08:11)
[2017-07-28] MEDS: Acetaminophen TAB* 325 MG PO PRN ×3 (09:01→21:35)
--- NOTE | 2017-07-28 16:55 | PN ---
Progress Note Date of Service: 07/28/17 Note: CRAIG PERRY was visited. Therapy notes read and reviewed. She has no complaints other than some fatigue. Pain is well controlled with Tylenol. She doesn't want opioids. Current Medications: Active Medications Generic Name Dose Route Start Last Admin Trade Name Freq PRN Reason Stop Dose Admin Acetaminophen 650 mg 07/27/17 13:58 07/28/17 12:58 Tylenol Tab* PO 650 mg Q4H PRN Administration FEVER/PAIN Atorvastatin Calcium 40 mg 07/28/17 17:00 Lipitor* PO 1700 HELLEN Clopidogrel Bisulfate 75 mg 07/28/17 09:00 07/28/17 08:11 Plavix Tab* PO 75 mg DAILY HELLEN Administration Diltiazem HCl 120 mg 07/28/17 09:00 07/28/17 08:11 Cardizem Cd Cap* PO 120 mg DAILY HELLEN Administration Docusate Sodium 100 mg 07/27/17 21:00 07/28/17 08:12 Colace Cap* PO Not Given BID HELLEN Enoxaparin Sodium 40 mg 07/27/17 17:00 07/27/17 18:11 Lovenox(*) SUBCUT 40 mg Q24H HELLEN Administration Magnesium Hydroxide 30 ml 07/27/17 13:58 Milk Of Magnesia Liq* PO Q6H PRN CONSTIPATION Senna 2 tab 07/27/17 13:58 Senokot Tab* PO BEDTIME PRN CONSTIPATION Tramadol HCl 50 mg 07/27/17 16:19 Ultram* PO Q6H PRN PAIN - MODERATE TO SEVERE Vital Signs: Vital Signs Temp Pulse Resp BP Pulse Ox 98.4 F 75 18 123/61 98 07/28/17 15:57 07/28/17 15:57 07/28/17 15:57 07/28/17 15:57 07/28/17 15:57 Lab Results: Laboratory Results - last 24 hr 07/28/17 07/28/17 06:21 06:21 WBC 11.0 H RBC 3.67 L Hgb 11.3 L Hct 34 L MCV 92 MCH 31 MCHC 34 RDW 14 Plt Count 232 MPV 8 Neut % (Auto) 74.2 Lymph % (Auto) 14.6 L Brule % (Auto) 6.1 Eos % (Auto) 3.9 Baso % (Auto) 1.2 Absolute Neuts (auto) 8.1 H Absolute Lymphs (auto) 1.6 Absolute Monos (auto) 0.7 Absolute Eos (auto) 0.4 Absolute Basos (auto) 0.1 Absolute Nucleated RBC 0 Nucleated RBC % 0 Sodium 137 Potassium 4.3 Chloride 105 Carbon Dioxide 29 Anion Gap 3 BUN 11 Creatinine 0.76 Est GFR ( Amer) 94.4 Est GFR (Non-Af Amer) 73.4 BUN/Creatinine Ratio 14.5 Glucose 109 H Calcium 8.5 L Total Bilirubin 0.50 AST 11 L ALT 6 L Alkaline Phosphatase 71 Total Protein 5.9 L Albumin 3.0 L Globulin 2.9 Albumin/Globulin Ratio 1.0 Exam: LUNGS: Clear bilat HEART: Reg rhythm ABDOMEN: Soft, + BS EXTREMITIES: RLE wound clean Assessment/Plan: 07/28/17 16:53 1. Intertrochanteric fracture of right femur/ORIF: PT/OT 2. DVT Prophlaxis: Lovenox 3. History of TIA: Plavix 4. Analgesia: Tylenol. Will offer tramadol for extreme pain
[2017-07-28] MEDS: Atorvastatin* 40 MG TAB PO SCH (17:09)
[2017-07-28] MEDS: Enoxaparin(*) 40 MG/0.4 ML SYR SUBCUT SCH (17:09)
[2017-07-29] MEDS: Clopidogrel TAB* 75 MG PO SCH (08:21)
[2017-07-29] MEDS: Acetaminophen TAB* 325 MG PO PRN ×3 (08:21→23:27)
[2017-07-29] MEDS: Diltiazem CD CAP* 120 MG PO SCH (08:21)
[2017-07-29] MEDS: Docusate CAP* 100 MG PO SCH ×2 (08:28→19:10)
--- NOTE | 2017-07-29 12:25 | PMRUTEAM ---
PMRU: Goals Current Status: Nursing: Current Status Skin Deviations [Right Lateral Incision Hip] Skin Deviations [Left Lower Abrasion Leg] Skin Deviations [Right Knee] Skin Tear Skin Deviations [Right Arm] Skin Tear Skin Deviation Description [ drsg in place Right Lateral Hip] Skin Deviation Description [ drsg in place Right Knee] Skin Deviation Description [ drsg in place Right Arm] Physical Therapy: Current Status Bed Mobility Assistance Contact Guard Assist,Min Assist Transfer Moblility Assistance Supervision Transfer/Bed Mobility Rolling Walker Recommended Devices Transfer Mobility Comment Pt. is able to perform a SPT using a 2 w/w S x 1. Ambulation Assistance Supervision Ambulation Assistive Devices Rolling Walker Number of Feet Patient 150 Ambulated Ambulation Comment pt. presents a antalgic modified reciprocal type gait pattern. Stairs Assistance Supervision Stairs Recommended Devices Two Rails Number of Stairs 5 Occupational Therapy: Current Status Upper Body Dressing Supervision Lower Body Dressing Mod Assist Bathing Min Assist Toileting Contact Guard Assist Toilet Transfer Min Assist Shower Transfer Min Assist Eating Ind with Adaptive Equip Rec Therapy: Current Status Summary of Assessment and Pt. was open to conversation - very talkative and Clinical Impression engaged throughout. Pt. states she has interests and was active in them prior to admission. Pt. had leisure activities in her room and was open to continued visits. Treatment Goals Pt. will engage in leisure activities while on the unit. Treatment Plan Provide RT services and encourage involvement. Social Work: Current Status Discharge Plan return home with home care svs and family support Potential for Family Training pt's is involved and attentive Anticipated Discharge Home Destination Discharge With VNS and family support Nutrition: Current Status Monitoring full nutrition assessment planned 08/06, as pt deemed at low nutritional risk. She is on a regular diet. She is now eating 75-100% of meals. Wt is adequate and within healthy BMI range. Skin is intact. Bowel are regulating post-op 07/24. Initial goals as outlined below. Goals: Physical Therapy: Initial Goals Bed Mobility Assistance Independent Transfer Mobility Assistance Independent Transfer/Bed Mobility Rolling Walker Recommended Devices Ambulation Independent Ambulation Recommended Devices Rolling Walker Ambulation Distance 300 Stairs Assistance Independent Stair Recommended Devices One Rail Number of Stairs 5 Home Exercise Program Min Assist Assistance Physical Therapy: Updated Goals Bed Mobility Assistance Independent Transfer Mobility Assistance Independent Transfer/Bed Mobility Rolling Walker,Railings Recommended Devices Ambulation Assistance Independent Ambulation Assistive Devices Rolling Walker Ambulation Distance (ft) 300 Stairs Assistance Independent Stairs Recommended Devices Two Rails Number of Stairs 5 Occupational Therapy: Initial Goals Goals to be Completed in (Days 7 days ) Upper Body Bathing Routine Modified Independent with Lower Body Bathing Routine Modified Independent with Upper Body Dressing Routine Independent Lower Body Dressing Routine Modified Independent with Toilet Hygeine and Clothing Independent Management Routine Toilet Transfer Routine Modified Independent with Tub Transfer Routine Modified Independent with Functional Transfers for ADL Modified Independent with Grooming Routine Independent Feeding Routine Modified Independent with Nutrition: Goals Intervention Goals 1. adequate po intake to support post-op healing and lean body mass 2. adequate po intake to promote stable wt; no evidence of wt loss 3. regulation of post-op bowel pattern; no c/o constipation (or diarrhea) Social Work: Goals Discharge Plan return home with home care svs and family support Potential for Family Training pt's is involved and attentive Anticipated Discharge Home Destination Discharge With VNS and family support Care Plan: Care Plan ADL's - Improve/Maintain Start: 07/28/17 14:26 Freq: DAILY Status: Active Target: Protocol: Activity Type Activity Date Activity User E-Sign Co-Sign Detail Recorded Client Recorded Date Recorded By Document 07/28/17 14:26 [id number] [facility] [place]-RDC2 07/28/17 14:27 [id number] 07/28/17 14:26 PMRU Outcome: ADL's/ADL Transfers Orders/Interventions Occupational Therapy Evaluation & Treatment Device Yes Patient to receive OT 5x/wk for 60-120 Therex min/day Self Care Management Group Therapy UE/LE ADL's with Assist Yes ADL Transfers with Assist Yes Toileting: Transfers,Clothing Management Yes ,Hygeine w/Assist Light Kitchen/Laundry w/Assist Yes Progression Toward Outcome/Goals Progressing Cardiovascular- Improve/Maintain Start: 07/27/17 19:55 Freq: DAILY Status: Active Target: Protocol: Activity Type Activity Date Activity User E-Sign Co-Sign Detail Recorded Client Recorded Date Recorded By Document 07/29/17 09:36 [id number] 07/29/17 09:36 [id number] 07/29/17 09:36 PMRU Outcome: Cardiovascular Vital Signs q Shift for 48hrs Then BID Yes Daily Weight Ordered No Current Cardiovascular Outcome/Goal Maintain/ Achieve Baseline HR, BP , Perfusion Maintain/ Achieve Hemodynamic Stability Progression Toward Outcome/Goal Progressing DVT Prophylaxis- Improve/Maintain Start: 07/27/17 19:55 Freq: DAILY Status: Active Target: Protocol: Activity Type Activity Date Activity User E-Sign Co-Sign Detail Recorded Client Recorded Date Recorded By Document 07/29/17 09:36 [id number] 07/29/17 09:36 [id number] 07/29/17 09:36 PMRU Outcome: DVT Prophylaxis Outcome/Goals Remains Free of DVT Complies with DVT Prophylaxis /Treatment TEDS Stockings on Every AM, Off at HS Progression Toward Outcome/Goals Progressing Discharge Planning - Improve/Maintain Start: 07/27/17 19:55 Freq: DAILY Status: Active Target: Protocol: Activity Type Activity Date Activity User E-Sign Co-Sign Detail Recorded Client Recorded Date Recorded By Document 07/29/17 09:36 [id number] 07/29/17 09:36 [id number] 07/29/17 09:36 PMRU Outcome: Discharge Planning Identify Patient Needs yes Update Patient Family No Outcome/Goals Demonstrates Understanding of Discharge Plan Progression Toward Outcome/Goals Progressing Mobility- Improve/Maintain Start: 07/27/17 19:55 Freq: DAILY Status: Active Target: Protocol: Activity Type Activity Date Activity User E-Sign Co-Sign Detail Recorded Client Recorded Date Recorded By Document 07/28/17 12:33 [id number] 07/28/17 12:33 [id number] 07/28/17 12:33 PMRU Outcome: Mobility Physical Therapy Evaluation and Yes Treatment Activity OOB with Assistance Yes WBAT Yes Device Yes Assistance Yes Patient to be seen 5x/wk for 60-120 min/ Therex day for: Mobility Training Gait Training W/C Mobility Outcome/Goals Maintain/ Achieve Baseline Mobility Status Improve Mobility Status Demonstrates Proper Use of Assistive Devices Free from Complications of Immobility Progression Toward Outcome/Goals Progressing Bed Mobility Yes Transfers Yes Gait x ft Yes: 300 W/C Mobility x ft No Up/Down Stairs Yes With HEP Yes Pain/Comfort- Improve/Maintain Start: 07/27/17 19:55 Freq: DAILY Status: Active Target: Protocol: Activity Type Activity Date Activity User E-Sign Co-Sign Detail Recorded Client Recorded Date Recorded By Document 07/29/17 09:36 [id number] 07/29/17 09:36 [id number] 07/29/17 09:36 PMRU Outcome: Pain/Comfort Outcome/Goals Demonstrates Knowledge and Use of Available Comfort Measures Achieves Acceptable Comfort/Pain Level as Determined by Patient/Condit Maintain Comfort Level Allowing Patient to Fully Participate in Rehab Progression Toward Outcome/Goals Progressing Outcome/Goals Met Comment tylenol given Skin- Improve/Maintain Start: 07/27/17 19:55 Freq: DAILY Status: Active Target: Protocol: Activity Type Activity Date Activity User E-Sign Co-Sign Detail Recorded Client Recorded Date Recorded By Document 07/29/17 09:36 [id number] 07/29/17 09:36 [id number] 07/29/17 09:36 PMRU Outcome: Skin Skin Risk Level Medium Skin Orders Dressing Change Outcome/Goals Maintain/ Improve Skin Intergrity Progression Toward Outcome/Goals Progressing Medicine Note: Length of Stay: 3 days Anticipated Discharge Destination: Home Tentative Discharge Date: 08/01/17 Discharged to: home
[2017-07-29] MEDS: Enoxaparin(*) 40 MG/0.4 ML SYR SUBCUT SCH (16:28)
[2017-07-29] MEDS: Atorvastatin* 40 MG TAB PO SCH (16:28)
--- NOTE | 2017-07-29 16:31 | PN ---
Progress Note Date of Service: 07/29/17 Note: CRAIG PERRY was visited. Therapy notes read and reviewed. She was discussed in interdisciplinary team rounds. Moving fairly well. Pain well controlled. Current Medications: Active Medications Generic Name Dose Route Start Last Admin Trade Name Freq PRN Reason Stop Dose Admin Acetaminophen 650 mg 07/27/17 13:58 07/29/17 13:01 Tylenol Tab* PO 650 mg Q4H PRN Administration FEVER/PAIN Atorvastatin Calcium 40 mg 07/28/17 17:00 07/29/17 16:28 Lipitor* PO 40 mg 1700 HELLEN Administration Clopidogrel Bisulfate 75 mg 07/28/17 09:00 07/29/17 08:21 Plavix Tab* PO 75 mg DAILY HELLEN Administration Diltiazem HCl 120 mg 07/28/17 09:00 07/29/17 08:21 Cardizem Cd Cap* PO 120 mg DAILY HELLEN Administration Docusate Sodium 100 mg 07/27/17 21:00 07/29/17 08:28 Colace Cap* PO Not Given BID HELLEN Enoxaparin Sodium 40 mg 07/27/17 17:00 07/29/17 16:28 Lovenox(*) SUBCUT 40 mg Q24H HELLEN Administration Magnesium Hydroxide 30 ml 07/27/17 13:58 Milk Of Magnesia Liq* PO Q6H PRN CONSTIPATION Senna 2 tab 07/27/17 13:58 Senokot Tab* PO BEDTIME PRN CONSTIPATION Tramadol HCl 50 mg 07/27/17 16:19 Ultram* PO Q6H PRN PAIN - MODERATE TO SEVERE Vital Signs: Vital Signs Temp Pulse Resp BP Pulse Ox 97.3 F 81 20 126/67 98 07/29/17 16:29 07/29/17 16:29 07/29/17 16:29 07/29/17 16:29 07/29/17 16:29 Exam: LUNGS: Clear bilat HEART: Reg rhythm ABDOMEN: Soft, + BS EXTREMITIES: RLE wound clean Assessment/Plan: 07/29/17 16:32 1. Intertrochanteric fracture of right femur/ORIF: PT/OT 2. DVT Prophlaxis: Lovenox 3. History of TIA: Plavix 4. Analgesia: Tylenol. Will offer tramadol for extreme pain
[2017-07-30] MEDS: Clopidogrel TAB* 75 MG PO SCH (08:09)
[2017-07-30] MEDS: Diltiazem CD CAP* 120 MG PO SCH (08:09)
[2017-07-30] MEDS: Acetaminophen TAB* 325 MG PO PRN ×3 (08:10→20:44)
[2017-07-30] MEDS: Docusate CAP* 100 MG PO SCH ×2 (08:10→20:44)
--- NOTE | 2017-07-30 16:58 | PN ---
Progress Note Date of Service: 07/30/17 Note: CRAIG PERRY was visited. Therapy notes read and reviewed. She has no complaints otherwise. Pain well controlled Current Medications: Active Medications Generic Name Dose Route Start Last Admin Trade Name Freq PRN Reason Stop Dose Admin Acetaminophen 650 mg 07/27/17 13:58 07/30/17 12:48 Tylenol Tab* PO 650 mg Q4H PRN Administration FEVER/PAIN Atorvastatin Calcium 40 mg 07/28/17 17:00 07/29/17 16:28 Lipitor* PO 40 mg 1700 HELLEN Administration Clopidogrel Bisulfate 75 mg 07/28/17 09:00 07/30/17 08:09 Plavix Tab* PO 75 mg DAILY HELLEN Administration Diltiazem HCl 120 mg 07/28/17 09:00 07/30/17 08:09 Cardizem Cd Cap* PO 120 mg DAILY HELLEN Administration Docusate Sodium 100 mg 07/27/17 21:00 07/30/17 08:10 Colace Cap* PO Not Given BID HELLEN Enoxaparin Sodium 40 mg 07/27/17 17:00 07/29/17 16:28 Lovenox(*) SUBCUT 40 mg Q24H HELLEN Administration Magnesium Hydroxide 30 ml 07/27/17 13:58 Milk Of Magnesia Liq* PO Q6H PRN CONSTIPATION Senna 2 tab 07/27/17 13:58 Senokot Tab* PO BEDTIME PRN CONSTIPATION Tramadol HCl 50 mg 07/27/17 16:19 Ultram* PO Q6H PRN PAIN - MODERATE TO SEVERE Vital Signs: Vital Signs Temp Pulse Resp BP Pulse Ox 99.1 F 79 16 116/57 95 07/30/17 05:18 07/30/17 05:18 07/30/17 05:18 07/30/17 05:18 07/30/17 08:48 Exam: LUNGS: Clear bilat HEART: Reg rhythm ABDOMEN: Soft, + BS EXTREMITIES: RLE wound clean Assessment/Plan: 07/30/17 16:58 1. Intertrochanteric fracture of right femur/ORIF: PT/OT 2. DVT Prophlaxis: Lovenox. Will make sure Lovenox training is done 3. History of TIA: Plavix 4. Analgesia: Tylenol. Will offer tramadol for extreme pain
[2017-07-30] MEDS: Enoxaparin(*) 40 MG/0.4 ML SYR SUBCUT SCH (16:59)
[2017-07-30] MEDS: Atorvastatin* 40 MG TAB PO SCH (17:01)
[2017-07-31 05:49] LABS: Urine Appearance Clear; Urine Blood Negative (Negative); Urine Color Yellow; Urine Ketones Negative (Negative); Urine Protein Negative (Negative); Urine Specific Gravity 1.015 (1.010-1.030); Urine Urobilinogen Negative (Negative)
[2017-07-31] MEDS: Acetaminophen TAB* 325 MG PO PRN ×3 (08:15→22:43)
[2017-07-31] MEDS: Diltiazem CD CAP* 120 MG PO SCH (08:16)
[2017-07-31] MEDS: Docusate CAP* 100 MG PO SCH ×2 (08:16→21:19)
[2017-07-31] MEDS: Clopidogrel TAB* 75 MG PO SCH (08:17)
--- NOTE | 2017-07-31 17:07 | PN ---
Progress Note Date of Service: 07/31/17 Note: CRAIG PERRY was visited. Therapy notes read and reviewed. She is ready for discharge. She will need to see Dr. Herrera in follow up Current Medications: Active Medications Generic Name Dose Route Start Last Admin Trade Name Freq PRN Reason Stop Dose Admin Acetaminophen 650 mg 07/27/17 13:58 07/31/17 13:00 Tylenol Tab* PO 650 mg Q4H PRN Administration FEVER/PAIN Atorvastatin Calcium 40 mg 07/28/17 17:00 07/30/17 17:01 Lipitor* PO 40 mg 1700 HELLEN Administration Clopidogrel Bisulfate 75 mg 07/28/17 09:00 07/31/17 08:17 Plavix Tab* PO 75 mg DAILY HELLEN Administration Diltiazem HCl 120 mg 07/28/17 09:00 07/31/17 08:16 Cardizem Cd Cap* PO 120 mg DAILY HELLEN Administration Docusate Sodium 100 mg 07/27/17 21:00 07/31/17 08:16 Colace Cap* PO 100 mg BID HELLEN Administration Enoxaparin Sodium 40 mg 07/27/17 17:00 07/30/17 16:59 Lovenox(*) SUBCUT 40 mg Q24H HELLEN Administration Magnesium Hydroxide 30 ml 07/27/17 13:58 Milk Of Magnesia Liq* PO Q6H PRN CONSTIPATION Senna 2 tab 07/27/17 13:58 Senokot Tab* PO BEDTIME PRN CONSTIPATION Tramadol HCl 50 mg 07/27/17 16:19 Ultram* PO Q6H PRN PAIN - MODERATE TO SEVERE Vital Signs: Vital Signs Temp Pulse Resp BP Pulse Ox 98.4 F 72 18 117/61 97 07/31/17 05:33 07/31/17 05:33 07/31/17 13:01 07/31/17 05:33 07/31/17 08:00 Lab Results: Laboratory Results - last 24 hr 07/31/17 05:20 Urine Color Yellow Urine Appearance Clear Urine pH 6.0 Ur Specific [place] 1.015 Urine Protein Negative Urine Ketones Negative Urine Blood Negative Urine Nitrate Negative Urine Bilirubin Negative Urine Urobilinogen Negative Ur Leukocyte Esterase Negative Urine Glucose Negative Exam: LUNGS: Clear bilat HEART: Reg rhythm ABDOMEN: Soft, + BS EXTREMITIES: RLE wound clean Assessment/Plan: 02/08/18 17:07 1. Intertrochanteric fracture of right femur/ORIF: PT/OT 2. DVT Prophlaxis: Lovenox. Will make sure Lovenox training is done 3. History of TIA: Plavix 4. Analgesia: Tylenol. Will offer tramadol for extreme pain
[2017-07-31] MEDS: Atorvastatin* 40 MG TAB PO SCH (18:11)
[2017-07-31] MEDS: Enoxaparin(*) 40 MG/0.4 ML SYR SUBCUT SCH (18:12)
[2017-08-01] MEDS: Acetaminophen TAB* 325 MG PO PRN ×2 (04:13→10:51)
[2017-08-01 07:42] VITALS: BP 118/63
[2017-08-01] MEDS: Docusate CAP* 100 MG PO SCH (08:44)
[2017-08-01] MEDS: Clopidogrel TAB* 75 MG PO SCH (08:44)
[2017-08-01] MEDS: Diltiazem CD CAP* 120 MG PO SCH (08:45)
--- NOTE | 2017-08-01 11:58 | PN ---
Progress Note Date of Service: 08/01/17 Note: CRAIG PERRY was visited. Therapy and nursing notes read and reviewed. She had a muscle spasm around her right thigh last night, but was able to get up and use the bathroom and fall back asleep. She just took tylenol. She is not interested in taking a muscle relaxant. No chest pain, shortness of breath or abdominal pain. Current Medications: Active Medications Generic Name Dose Route Start Last Admin Trade Name Freq PRN Reason Stop Dose Admin Acetaminophen 650 mg 07/27/17 13:58 08/01/17 10:51 Tylenol Tab* PO 650 mg Q4H PRN Administration FEVER/PAIN Atorvastatin Calcium 40 mg 07/28/17 17:00 07/31/17 18:11 Lipitor* PO 40 mg 1700 HELLEN Administration Clopidogrel Bisulfate 75 mg 07/28/17 09:00 08/01/17 08:44 Plavix Tab* PO 75 mg DAILY HELLEN Administration Diltiazem HCl 120 mg 07/28/17 09:00 08/01/17 08:45 Cardizem Cd Cap* PO 120 mg DAILY HELLEN Administration Docusate Sodium 100 mg 07/27/17 21:00 08/01/17 08:44 Colace Cap* PO 100 mg BID HELLEN Administration Enoxaparin Sodium 40 mg 07/27/17 17:00 07/31/17 18:12 Lovenox(*) SUBCUT 40 mg Q24H HELLEN Administration Magnesium Hydroxide 30 ml 07/27/17 13:58 Milk Of Magnesia Liq* PO Q6H PRN CONSTIPATION Senna 2 tab 07/27/17 13:58 Senokot Tab* PO BEDTIME PRN CONSTIPATION Tramadol HCl 50 mg 07/27/17 16:19 Ultram* PO Q6H PRN PAIN - MODERATE TO SEVERE Vital Signs: Vital Signs Temp Pulse Resp BP Pulse Ox 98.9 F 73 18 118/63 97 08/01/17 07:00 08/01/17 07:00 08/01/17 07:00 08/01/17 07:00 08/01/17 07:00 Exam: Exam: GEN: No acute distress. Alert and appropriate. LUNGS: Clear bilaterally HEART: Regular rate and rhythm ABDOMEN: Soft, + BS, non-tender, non-distended EXTREMITIES: Right hip incisions clean with eagle intact. Right knee and right arm dressings c/d/i. Multiple ecchymoses of thigh. Assessment/Plan: IMPRESSION/PLAN: 77yo woman with right hip fracture s/p ORIF. 1. Intertrochanteric fracture of right femur/ORIF:f/u with Dr. Aldana next week. 2. DVT Prophlaxis: Lovenox for a total of 1 month. and son were trained to do injections. 3. History of TIA: Plavix 4. Analgesia: Tylenol prn. Has not used tramadol. We discussed heat/ice for spams and mobilizing as able. 5. Advanced Directives: Full code and is hcp. 6. Dispo: home today with family support. 08/01/17 11:58 08/01/17 12:01
--- NOTE | 2017-08-02 11:05 | DS ---
CC: Dr. Aldana; Dr. Joshi REHABILITATION DISCHARGE SUMMARY: DATE OF ADMISSION: 07/27/17 DATE OF DISCHARGE: 08/01/17 ORTHOPEDIC SURGEON: Dr. Aldana. PRIMARY CARE PROVIDER: Dr. Joshi. REASON FOR ADMISSION: Right hip fracture. HISTORY OF PRESENT ILLNESS: For full details of her acute hospitalization leading up to admission, please see the note dictated by Dr. Mehta on . HOSPITAL COURSE: During her time on the [facility], she participated well with physical therapy, and at the time of discharge was independent with bed mobility , transfers using a two-wheeled walker, ambulation up to 150 feet using a two- wheeled walker and climbing five steps using two rails. She is independent with her home exercise program. She also participated well with occupational therapy and at the time of discharge is independent eating. She is also independent with bathing and tub transfers with a long-handled sponge and showering using a tub bench. She is independent in dressing with a middle school coach, sock aid and long-handled shoe horn. She is independent toileting and for toilet transfers using a raised toilet seat and walker. She is independent for small tasks with her walker for home management and cooking. Her will assist with larger heavier tasks. Her pain was well controlled using Tylenol only. She did have one episode of muscle spasms, but declined any additional medications. She has been using Lovenox for DVT prophylaxis and her and son were both trained on doing these injections for her. DISCHARGE CONDITION: Good. DISCHARGE DISPOSITION: Home with family support. DISCHARGE MEDICATIONS: 1. Atorvastatin 40 mg q.p.m. 2. Plavix 75 mg q. day. 3. Diltiazem CD 120 mg q. day. 4. Docusate 100 mg b.i.d. 5. Lovenox 40 mg subcutaneously q. day for a total of one month. 6. Acetaminophen 650 mg q. 6 hours p.r.n. pain. FOLLOWUP: 1. She is to follow up with Dr. Aldana next week for staple removal. 2. Follow up with Dr. Joshi in one month. 3. A referral has been sent to visiting nurse services for home health care including nursing and physical therapy. DISCHARGE DIAGNOSES: 1. Right hip fracture. 2. Hyperlipidemia. 3. History of transient ischemic attack. [id number]/[facility] #: [id number] MTDD
== END 2017-08-01 13:15 | disposition home health service (06) | DRG 561 ==
LOC: PMRU 11:46
PROVIDERS: ADMIT Physical Medicine & Rehabilitation; ATTEND Physical Medicine & Rehabilitation
PROC: F07Z5ZZ Bed Mobility Treatment (ICD-10-PCS; principal; 2017-07-27)
PROC: F07Z9ZZ Gait Training/Functional Ambulation Treatment (ICD-10-PCS; 2017-07-27)
PROC: F07Z8ZZ Transfer Training Treatment (ICD-10-PCS; 2017-07-27)
PROC: F08Z0ZZ Bathing/Showering Techniques Treatment (ICD-10-PCS; 2017-07-27)
PROC: F08Z1ZZ Dressing Techniques Treatment (ICD-10-PCS; 2017-07-27)
PROC: F08Z3ZZ Feeding/Eating Treatment (ICD-10-PCS; 2017-07-27)
DX: S72.141D Displaced intertrochanteric fracture of right femur, subsequent encounter for closed fracture with routine healing (principal); E78.5 Hyperlipidemia, unspecified; W01.0XXD Fall on same level from slipping, tripping and stumbling without subsequent striking against object, subsequent encounter; Z86.73 Personal history of transient ischemic attack (TIA), and cerebral infarction without residual deficits; Z79.899 Other long term (current) drug therapy; Z88.2 Allergy status to sulfonamides; Z88.8 Allergy status to other drugs, medicaments and biological substances; Z87.891 Personal history of nicotine dependence; Z79.02 Long term (current) use of antithrombotics/antiplatelets
CPT/HCPCS: 36415; 80053; 81003; 85025; A9270-GY; J1650

== ENCOUNTER 2018-05-31 13:58 | Inpatient (IN) | payer MEDICARE, BC ==
[2018-05-31] MEDS ORDERED: Ketorolac INJ* 30 MG/ML 1 ML VIAL IV PUSH ONE (15:17)
[2018-05-31] MEDS ORDERED: Ketorolac INJ* 15 MG/ML 1 ML VIAL ONE (15:18)
--- NOTE | 2018-05-31 15:19 | ED ---
Abdominal Pain/Female - HPI Summary HPI Summary: Pt is 77 y/o F who presents to ED c/o abdominal pain since last night. She was woken up in the middle of the night with the abdominal pain. Pt describes the pain as diffuse, steady, and like a cramp. The pain worsened around 13:00 today when she began shaking. Notes diarrhea, chills, and SOB. Denies nausea or urinary issues. PMHx of perforated intestine. PMHx denies any kidney issues. PSHx of appendectomy. - History of Current Complaint Chief Complaint: EDAbdPain Stated Complaint: ABD PAIN/CHILLS/SHAKY Time Seen by Provider: 05/31/18 15:03 Hx Obtained From: Patient Onset/Duration: Sudden Onset, Lasting Hours, Still Present, Worse Since - 13:00 Timing: Constant Severity Currently: Moderate - 7/10 Pain Intensity: 7 Pain Scale Used: 0-10 Numeric Location: Diffuse Aggravating Factor(s): Nothing Alleviating Factor(s): Nothing Associated Signs and Symptoms: Positive: Diarrhea. Negative: Blood in Stool, Urinary Symptoms, Nausea Allergies/Adverse Reactions: Allergies Allergy/AdvReac Type Severity Reaction Status Date / Time Sulfa (Sulfonamide Allergy Hives Verified 05/31/18 14:08 Antibiotics) isosorbide AdvReac Dizziness Verified 05/31/18 14:08 meperidine AdvReac Headache Verified 05/31/18 14:08 propranolol AdvReac See Comment Verified 05/31/18 14:08 Home Medications: Home Medications Alendronate Sodium 70 mg PO WEEKLY 05/31/18 [History Confirmed 05/31/18] PMH/Surg Hx/FS Hx/Imm Hx Endocrine/Hematology History: Denies: Hx Anticoagulant Therapy, Hx Blood Disorders, Hx Blood Transfusions, Hx Bone Marrow Disease, Hx Diabetes, Hx Systemic Lupus Erythematosus, Hx Sickle Cell Disease, Hx Thyroid Disease, Hx Anemia, Hx Unexplained Bleeding, Other Endocrine/Hematological Disorders Cardiovascular History: Reports: Hx Hypertension, Hx Syncope - with this illness , Other Cardiovascular Problems/Disorders - Angioplasty at [place] - no stents Denies: Hx Aneurysm, Hx Angina, Hx Angioplasty, Hx Auto Implanted Cardiovert Defib, Hx Cardiac Arrest, Hx Cardiomegaly, Hx Congenital Heart Disease, Hx Congestive Heart Failure, Hx Coronary Artery Disease, Hx Deep Vein Thrombosis, Hx Embolism, Hx Hypercholesterolemia, Hx Hypotension, Hx Pacemaker/ICD, Hx Peripheral Vascular Disease, Hx Rheumatic Fever, Hx Valvular Heart Disease Respiratory History: Reports: Hx Chronic Obstructive Pulmonary Disease (COPD) Denies: Hx Asthma, Hx Chronic Bronchitis, Hx Cystic Fibrosis, Hx Lung Cancer , Hx Pleural Effusion, Hx Pneumonia, Hx Pulmonary Edema, Hx Pulmonary Embolism, Hx Seasonal Allergies, Hx Sleep Apnea, Other Respiratory Problems/Disorders GI History: Reports: Other GI Disorders - perforated intestine repair Denies: Hx Cirrhosis, Hx Crohn's Disease, Hx Diverticulosis, Hx Gall Bladder Disease, Hx Gastroesophageal Reflux Disease, Hx Gastrointestinal Bleed, Hx Hiatal Hernia, Hx Irritable Bowel, Hx Jaundice, Hx Obstructive Bowel, Hx Ileostomy, Hx Pyloric Stenosis, Hx Ulcer History: Denies: Hx Acute Renal Failure, Hx Benign Prostatic Hyperplasia, Hx Chronic Renal Failure, Hx Dialysis, Hx Kidney Infection, Hx Kidney Stones, Hx Renal Disease, Other Problems/Disorders Musculoskeletal History: Reports: Hx Arthritis, Hx Orthopedic Injury - right knee patella fx Denies: Hx Back Problems, Hx Bursitis, Hx Congenital Bone Abnormalities, Hx Fibromyalgia, Hx Gout, Hx Osteoporosis, Hx Scoliosis, Hx Tendonitis, Other Musculoskeletal History Sensory History: Reports: Hx Cataracts, Hx Contacts or Glasses - bi-focal Denies: Hx Eye Injury, Hx Eye Prosthesis, Hx Glaucoma, Hx Legally Blind, Hx Macular Degeneration, Hx Vision Problem, Hx Deafness, Hx Hearing Aid, Hx Hearing Problem, Other Sensory Impairments Opthamlomology History: Reports: Hx Cataracts, Hx Contacts or Glasses - bi-focal Denies: Hx Eye Injury, Hx Eye Prosthesis, Hx Glaucoma, Hx Legally Blind, Hx Macular Degeneration, Hx Vision Problem, Other Sensory Impairments Neurological History: Reports: Hx Headaches - from this current illness Denies: Hx Dementia, Hx Developmental Delay, Hx Migraine, Hx Nerve Disease, Hx Seizures, Hx Spinal Cord Injury, Hx Transient Ischemic Attacks (TIA), Other Neuro Impairments/Disorders Psychiatric History: Denies: Hx Anxiety, Hx Attention Deficit Hyperactivity Disorder, Hx Eating Disorder, Hx Depression, Hx Panic Disorder, Hx Post Traumatic Stress Disorder, Hx Inpatient Treatment, Hx Community Mental Health Tx, Hx Schizophrenia, Hx Bipolar Disorder, Hx Suicide Attempt, Hx of Violent Episodes Against Others, Hx Substance Abuse, Other Psychiatric Issues/Disorders - Cancer History Hx Radiation Therapy: No Hx Palliative Cancer Treatment: No - Surgical History Surgery Procedure, Year, and Place: 12/23/2012-RT. KNEE ARTHROSCOPY-[facility]. 01/09/2015-abd surgery- benign colon POLYP- hemicolectomy-[facility] [place]. 2014-BIL[facility]AL [facility]AR[facility]S [facility] [place]. FRACTURED ELBOW- 36 YEARS AGO Hx Anesthesia Reactions: No - Immunization History Date of Tetanus Vaccine: up to date Date of Influenza Vaccine: Fall 2015 Infectious Disease History: No Infectious Disease History: Denies: Hx Clostridium Difficile, Hx Hepatitis, Hx Human Immunodeficiency Virus (HIV), Hx of Known/Suspected MRSA, Hx Shingles, Hx Tuberculosis, Hx Known/ Suspected VRE, Hx Known/Suspected VRSA, History Other Infectious Disease, Traveled Outside the [place] in Last 30 Days - Family History Known Family History: Positive: Other - [place] - father - Social History Alcohol Use: Rare Substance Use Type: Reports: None Hx Tobacco Use: Yes Smoking Status (MU): Former Smoker Type: Cigarettes Amount Used/How Often: 1/2 PPD X 40 YEARS Length of Time of Smoking/Using Tobacco: whole life Have You Smoked in the Last Year: No Review of Systems Positive: Chills Positive: Shortness Of Breath Positive: Abdominal Pain, Diarrhea. Negative: Nausea Genitourinary: Negative All Other Systems Reviewed And Are Negative: Yes Physical Exam - Summary Physical Exam Summary: Appearance: The patient is well-nourished in no acute distress and in no acute pain. Skin: The skin is warm and dry and skin color reflects adequate perfusion. HEENT: The head is normocephalic and atraumatic. The pupils are equal and reactive. The conjunctivae are clear and without drainage. Nares are patent and without drainage. Mouth reveals moist mucous membranes and the throat is without erythema and exudate. The external ears are intact. The ear canals are patent and without drainage. The tympanic membranes are intact. Neck: The neck is supple with full range of motion and non-tender. There are no carotid bruits. There is no neck vein distension. Respiratory: Chest is non-tender. Lungs are clear to auscultation and breath sounds are symmetrical and equal. Cardiovascular: Heart is regular rate and rhythm. There is no murmur or rub auscultated. There is no peripheral edema and pulses are symmetrical and equal. Abdomen: Diffuse tenderness in abdomen, more in LLQ. There are normal bowel sounds heard in all four quadrants and there is no organomegaly palpated. Musculoskeletal: There is no back tenderness noted. Extremities are non-tender with full range of motion. There is good capillary refill. There is no peripheral edema or calf tenderness elicited. Neurological: Patient is alert and oriented to person, place and time. The patient has symmetrical motor strength in all four extremities. Cranial nerves are grossly intact. Deep tendon reflexes are symmetrical and equal in all four extremities. Psychiatric: The patient has an appropriate affect and does not exhibit any anxiety or depression. Triage Information Reviewed: Yes Vital Signs On Initial Exam: Initial Vitals Temp Pulse Resp BP Pulse Ox 101.1 F 79 20 131/78 94 05/31/18 14:03 05/31/18 14:03 05/31/18 14:03 05/31/18 14:03 05/31/18 14:03 Vital Signs Reviewed: Yes Diagnostics - Vital Signs Vital Signs Temp Pulse Resp BP Pulse Ox 05/31/18 15:11 84 97 05/31/18 14:03 101.1 F 79 20 131/78 94 - Laboratory Result Diagrams: 05/31/18 15:54 05/31/18 15:54 Lab Statement: Any lab studies that have been ordered have been reviewed, and results considered in the medical decision making process. - CT Abd/Pel CT CT Interpretation Completed By: Radiologist Summary of CT Findings: IMPRESSION: #. Cholelithiasis and findings of acute cholecystitis. #. No biliary dilatation evident. The ED physician reviewed this radiology report. - EKG 15:46 Cardiac Rate: NL - 79 bpm EKG Rhythm: Sinus Rhythm Summary of EKG Findings: Vertical axis Abdominal Pain Fem Course/Dx - Course Course Of Treatment: Ms. Vela presented to the emergency department with a couple days of abdominal pain. She hasn't really had any appetite but has not been nauseated. She's been moving her bowels and bladder normally. She was tender diffusely with the exception of the right lower quadrant area. She has a history of an unknown etiology intestinal perforation in the past. Labs were obtained and CT of her abdomen and pelvis without contrast were obtained. Dr. aCgle from radiology called with the report of acute cholecystitis. She was found to have a mild leukocytosis and a slight lipase elevation consistent with the above. Dr. Carranza was contacted and requested the hospitalist group admit her. was contacted and agreed to admit the patient - Diagnoses Provider Diagnoses: Acute cholecystitis - Provider Notifications Discussed Care Of Patient With: Jerardo Carranza - General surgeon Time Discussed With Above Provider: 16:00 Instructed by Provider To: Admit As Inpatient - Dr. Carranza recommended admitting the pt. 16:15 hrs- Dr. Victor (hospitalist) agreed to admit the pt. Discharge - Sign-Out/Discharge Documenting (check all that apply): Patient Departure - Admit - Discharge Plan Condition: Stable Disposition: ADMITTED TO [facility] - Billing Disposition and Condition Condition: STABLE Disposition: Admitted to [facility] - Attestation Statements Document Initiated by Scribe: Yes Documenting Scribe: Alexsander Franco Provider For Whom Marisol is Documenting (Include Credential): Dr. Teddy Calle MD Scribe Attestation: Alexsander Ross scribed for Dr. Teddy Calle MD on 05/31/18 at 2118. Scribe Documentation Reviewed: Yes Provider Attestation: The documentation as recorded by the scribeAlexsander accurately reflects the service I personally performed and the decisions made by , Dr. Teddy Calle MD Status of Scribe Document: Viewed
[2018-05-31 16:03] LABS: Hematocrit 42 % (35-47); Hemoglobin 13.8 g/dl (12.0-16.0); Mean Corpuscular HGB Conc 33 g/dl (31-36); Mean Corpuscular Hemoglobin 30 pg (27-31); Mean Corpuscular Volume 93 fL (80-97); Mean Platelet Volume 8.3 fL (7.4-10.4); Platelet Count 216 10^3/ul (150-450); Red Blood Count 4.56 10^6/ul (4.00-5.40); Red Cell Distribution Width 13 % (10.5-15); White Blood Count 16.5 10^3/ul (3.5-10.8)
[2018-05-31 16:09] LABS: INR 0.92 (0.77-1.02)
[2018-05-31 16:21] LABS: Albumin 3.8 g/dL (3.2-5.2); Albumin/Globulin Ratio 1.3 (1-3); BUN/Creatinine Ratio 18.5 (8-20); C Reactive Protein 3.97 mg/L (<8.01); EGFR Non-African American 68.2 (>60); Globulin 2.9 g/dL (2-4); Potassium 3.8 mmol/L (3.5-5.0); Total Bilirubin 0.9 mg/dL (0.2-1.0); Total Protein 6.7 g/dL (6.4-8.9)
[2018-05-31 16:25] LABS: ABS Basophils 0 10^3/ul (0-0.2); ABS Eosinophils 0 10^3/ul (0-0.6); ABS Lymphocytes 0.6 10^3/ul (1.0-4.8); ABS Monocytes 0.6 10^3/ul (0-0.8); ABS Neutrophils 15.3 10^3/ul (1.5-7.7); ABS Nucleated RBC 0 10^3/ul; Eosinophil % 0.1 %; Lymphocyte % 3.5 %; Nucleated Red Blood Cells % 0
[2018-05-31] MEDS ORDERED: Senna TAB PO PRN (16:54)
[2018-05-31] MEDS ORDERED: Morphine VIAL* 4 MG/ML VIAL (1 ml vial) IV PRN (16:54)
[2018-05-31] MEDS ORDERED: Al Hydrox/Mg Hydrox/Simet LIQ* 30 ML UDC PO PRN (16:54)
[2018-05-31] MEDS ORDERED: Ondansetron INJ* 2 MG/ML VIAL IV PRN (16:54)
[2018-05-31] MEDS ORDERED: Docusate CAP* 100 MG PO PRN (16:54)
[2018-05-31] MEDS ORDERED: Piperacillin/Tazobac ADVAN(*) 3.375 GM in NS 0.9% 100 ML* 100 ML IVPB ONE (16:57)
[2018-05-31] MEDS ORDERED: Zosyn per Pharmacy* NOTE FOLLOW UP SCH ×2 (17:00)
[2018-05-31] MEDS: NS 0.9% 1000 ML* 1,000 ML IV SCH ×2 (18:23→22:33)
[2018-05-31] MEDS: Acetaminophen TAB* 325 MG PO PRN (20:09)
[2018-05-31] MEDS: ZOSYN 3.375 GM Q8H per EXTENDED INFUSION IVPB SCH ×2 (20:36)
[2018-05-31] MEDS ORDERED: NS 0.9% 500 ML* 500 ML IV ONE (20:43)
[2018-05-31] MEDS: Heparin VIAL(*) 5000 UNITS/ML VIAL (FIVE THOUSAND) SUBCUT SCH (21:51)
--- NOTE | 2018-06-01 02:31 | HP ---
HISTORY AND PHYSICAL: DATE OF ADMISSION: 05/31/18 PRIMARY CARE PHYSICIAN: Misha Joshi MD CHIEF COMPLAINT: Abdominal pain. HISTORY OF PRESENT ILLNESS: This is a 77-year-old female with past medical history of CAD and hypertension who presented to the emergency room with acute onset of abdominal pain. The patient states she woke up during the night with abdominal pain. She thought she was going to be getting sick with a stomach bug. She took a morning pill this morning, but she was not able to tolerate any solids. During the morning, she developed chills, shakes and significant epigastric pain that progressively got worse. She was not nauseated, no vomiting. She had 1 small amount of liquid diarrhea. Because of this persistent pain, she was concerned about bowel preparation because in the past 3 years ago, she was admitted for bowel prep and she was worried that this was a similar presentation to that in the past. The patient denies any history of any gallstone or pancreas issues in the past. She did have eggnog last night, which is out of the norm for her. She denies any chest pain. No shortness of breath, no URI illness. She is able to go up and down the stairs without getting short of breath or chest pain. In the emergency room, the patient had labs, imaging. She was given Toradol and referred to the hospitalist service for further evaluation. PAST MEDICAL HISTORY: 1. History of coronary artery disease with an WA, no intervention was indicated at that time. 2. History of a bowel perforation status post resection in 2014. 3. History of question of a TIA with acute onset of right arm weakness that was transient in June 2016. 4. Hypertension. 5. Status post right total hip ORIF in July 2017. 6. Osteoporosis. 7. Hyperlipidemia. MEDICATIONS: 1. Diltiazem CD 120 mg p.o. daily. 2. Alendronate 70 mg weekly. 3. Plavix 75 mg daily. 4. Lipitor 40 mg daily. 5. Tylenol 650 mg every 8 hours as needed. ALLERGIES: SULFA, ISOSORBIDE, MEPERIDINE, PROPRANOLOL. SOCIAL HISTORY: The patient lives at home with her . She is independent with ADLs. She quit smoking 3 years ago, at that time she smoked 1- pack every 2 days for 30 years. Rare alcohol use. No illicit drug use. Her is her healthcare proxy. Code status full code. REVIEW OF SYSTEMS: A 14-point review of systems as mentioned in the HPI, otherwise negative. FAMILY HISTORY: Mother from complications related to meningitis at age 45. Father from lung cancer at age 59. PHYSICAL EXAMINATION GENERAL: No acute distress, resting comfortably with her and her son at the bedside. VITALS: T-max is 101, pulse rate 91, respiratory rate 17, oxygen saturation 93 % on room air, blood pressure 133/96. HEENT: Head normocephalic. Pupils are equal and reactive, anicteric. Oropharynx: Mucous membranes are moist. NECK: Supple. No lymphadenopathy. RESPIRATORY: Diminished breath sounds. No wheezes, rhonchi or rales. CARDIAC: Regular rate and rhythm. Soft systolic murmur heard throughout. ABDOMEN: Positive bowel sounds, soft. She does have tenderness in the epigastric and left upper quadrant region. No rebound or guarding. EXTREMITIES: No clubbing, cyanosis, or edema. +1 DPs. NEUROLOGIC: Alert and oriented x3. No gross focal neurologic deficits. DERM: She does have scattered ecchymoses over upper and lower extremities. LABORATORY DATA: White count 16.5, hemoglobin 30.8, hematocrit 42, platelets 216, INR 0.92. Sodium 136, potassium 3.8, chloride 104, bicarb 24, BUN 15, creatinine 0.81, glucose 101, lipase 327, troponin is 0. Radiographic Data: Abdominal and pelvis CT, cholelithiasis and findings of acute cholecystitis. No biliary dilatation evident. EKG is normal sinus rhythm, nonspecific ST changes. ASSESSMENT: This is a 77-year-old female with past medical history of hypertension, coronary artery disease and transient ischemic attack who presents to the emergency room with acute onset of epigastric pain. Epigastric pain. Assessment: The patient's imaging and history and physical are consistent with cholecystitis, the question is some reactive pancreatitis as well. PLAN: Dr. Carranza was consulted, he is going to see the patient. He discussed holding the Plavix and then eventually would operate on her if she is clinically improving. We will start her on Zosyn, IV liquids. Clear liquid diet. Hold her Plavix. We will get an ultrasound to get a better look at the biliary tract to rule out any gallstone pancreatitis, though no evidence of pancreatitis on imaging. Chronic medical problems: Hypertension, continue diltiazem. History of TIA, holding her Plavix in the setting of likely surgery in the next few days. Hyperlipidemia, continue atorvastatin. FEN: Clear liquid diet. IV fluids. DVT prophylaxis: The patient scores high risk, placed on heparin subcu t.i.d. Code status: Full code. TIME SPENT: Patient time greater than 50 minutes spent doing the history and physical, more than half the time spent in direct patient contact. [id number]/CPS #: [id number] STEPHANE
[2018-06-01] MEDS: ZOSYN 3.375 GM Q8H per EXTENDED INFUSION IVPB SCH ×6 (04:56→20:55)
[2018-06-01] MEDS: Heparin VIAL(*) 5000 UNITS/ML VIAL (FIVE THOUSAND) SUBCUT SCH ×3 (05:49→21:50)
[2018-06-01 06:14] LABS: ABS Basophils 0.1 10^3/ul (0-0.2); ABS Eosinophils 0.1 10^3/ul (0-0.6); ABS Lymphocytes 1.3 10^3/ul (1.0-4.8); ABS Monocytes 0.6 10^3/ul (0-0.8); ABS Neutrophils 8.8 10^3/ul (1.5-7.7); ABS Nucleated RBC 0 10^3/ul; Eosinophil % 0.8 %; Hematocrit 37 % (35-47); Hemoglobin 12.2 g/dl (12.0-16.0); Lymphocyte % 11.9 %; Mean Corpuscular HGB Conc 33 g/dl (31-36); Mean Corpuscular Hemoglobin 31 pg (27-31); Mean Corpuscular Volume 93 fL (80-97); Mean Platelet Volume 8.2 fL (7.4-10.4); Nucleated Red Blood Cells % 0; Platelet Count 179 10^3/ul (150-450); Red Blood Count 3.94 10^6/ul (4.00-5.40); Red Cell Distribution Width 14 % (10.5-15); White Blood Count 10.9 10^3/ul (3.5-10.8)
[2018-06-01 06:38] LABS: Albumin 2.8 g/dL (3.2-5.2); Albumin/Globulin Ratio 1.2 (1-3); BUN/Creatinine Ratio 16.9 (8-20); Calcium 7.9 mg/dL (8.6-10.3); EGFR Non-African American 66.3 (>60); Globulin 2.4 g/dL (2-4); Potassium 3.5 mmol/L (3.5-5.0); Total Protein 5.2 g/dL (6.4-8.9)
[2018-06-01] MEDS: NS 0.9% 1000 ML* 1,000 ML IV SCH ×3 (07:09→23:40)
[2018-06-01] MEDS: Acetaminophen TAB* 325 MG PO PRN ×3 (08:26→20:54)
[2018-06-01] MEDS: Atorvastatin* 40 MG TAB PO SCH (08:27)
[2018-06-01] MEDS: Diltiazem CD CAP* 120 MG PO SCH (08:27)
[2018-06-01] MEDS ORDERED: Ibuprofen TAB* 600 MG PO PRN (11:29)
--- NOTE | 2018-06-01 13:34 | CONS ---
CC: Dr. Joshi; Dr. Joe Contreras * CONSULTATION REPORT: DATE OF CONSULT: 06/01/18 CHIEF COMPLAINT: Abdominal pain. HISTORY OF PRESENT ILLNESS: Ms. Vela is a 77-year-old female who started to have intense central epigastric and bilateral subcostal pain yesterday. She then presented to the emergency room and was subsequently admitted. She has no history of pain like this before. She does have a history of an ileocecal resection for a focal perforation from an ischemic event. The pathology at that time showed that it was a perforated diverticulum in the terminal ileum with acute serositis and abscess formation. She has since done well in terms of her GI tract. She has not had any nausea or vomiting with this current event. She has not had any accident, injury, or trauma. Has not had any fever or chills. Has not had any diarrhea or change in the color of the stool or urine. She has not had known hepatobiliary disease previously. PAST MEDICAL HISTORY: Noted and includes coronary artery disease, TIAs, osteoporosis, hyperlipidemia, hypertension. MEDICATIONS: She is currently on Plavix among other medications. PHYSICAL EXAM: She is a well-developed, well-nourished, generally fit for age appearing woman. She does not appear acutely ill. She states the pain is quite a bit better than it was at its worst yesterday. She does not appear jaundiced. Abdomen is soft, flat. [id number] epigastric tenderness. The worst area seems to be in the low epigastrium, but does extend to the right and to the left from that area. There is not a definitive Bravo's sign. There is no palpable gallbladder or mass. There is a well-healed lower midline incision consistent with the surgical history. There is no obvious hernia. DIAGNOSTIC STUDIES/LAB DATA: Laboratory studies show white blood count was elevated at 16,000, now down to 11,000. Her left shift is improving. Her liver chemistries are normal. She has an elevated lipase. She has had an ultrasound of the gallbladder, which is consistent with acute cholecystitis. IMPRESSION AND PLAN: A 77-year-old female with cardiac history and transient ischemic attacks and hypertension, on Plavix, now with acute cholecystitis. She seems to be responding well to intravenous antibiotics with a decrease in her white blood count and her left shift, resolution of her lactic acidosis and substantial improvement in her pain. She has hyperlipasemia consistent with pancreatitis, although it could conceivably be inflammation from the gallbladder. At present, it would be too high risk to operate on her on Plavix and she is responding nicely to antibiotics, so I recommend that she continue antibiotics and be allowed to resolve her cholecystitis on antibiotics and then after appropriate cardiac workup, consideration could be given to elective laparoscopic cholecystectomy. Thank you for allowing us to participate in her care. We will continue to follow along with you and we will defer to the hospitalist judgment regarding the need for therapeutic recreation assistant consultation. [id number]/[facility] #: [id number] STEPHANE
--- NOTE | 2018-06-01 15:54 | PN ---
Subjective Date of Service: 06/01/18 Interval History: Ms. Vela is feeling much better today. She denies any N/V. No BM since admission. She reports that abd pain has improved, but she is still quite tender. She has been up ambulating. Has had a headache much of the day, but has not had any coffee. Denies CP, SOB, dizziness. Family History: Unchanged from Admission Social History: Unchanged from Admission Past Medical History: Unchanged from Admission Objective Active Medications: Acetaminophen (Tylenol Tab*) 650 mg PO Q4H PRN FEVER/PAIN Al Hydrox/Mg Hydrox/Simethicone (Maalox Plus*) 30 ml PO Q6H PRN INDIGESTION Atorvastatin Calcium (Lipitor*) 40 mg PO DAILY HELLEN Diltiazem HCl (Cardizem Cd Cap*) 120 mg PO DAILY HELLEN Docusate Sodium (Colace Cap*) 100 mg PO BID PRN CONSTIPATION Heparin Sodium (Porcine) (Heparin Vial(*)) 5,000 units SUBCUT Q8HR HELLEN Sodium Chloride (Ns 0.9% 1000 Ml*) 1,000 mls @ 125 mls/hr IV PER RATE HELLEN Piperacillin Sod/Tazobactam (Sod 3.375 gm/ Sodium Chloride) 100 mls @ 25 mls/ hr IVPB Q8H HELLEN Ibuprofen (Motrin Tab*) 600 mg PO Q6H PRN PAIN Morphine Sulfate (Morphine Vial*) 2 mg IV Q4H PRN PAIN - MILD Ondansetron HCl (Zofran Inj*) 4 mg IV Q4H PRN NAUSEA/VOMITING Pharmacy Consult (Zosyn Per Pharmacy*) 1 note FOLLOW UP .ZOSYN PER PHARMACY HELLEN Senna (Senokot Tab*) 1 tab PO BID PRN CONSTIPATION Vital Signs - 8 hr 06/01/18 06/01/18 08:00 11:16 Temperature 97.9 F Pulse Rate 66 Respiratory 16 16 Rate Blood Pressure 122/55 (mmHg) O2 Sat by Pulse 96 Oximetry Oxygen Devices in Use Now: None Appearance: Elderly female sitting in chair in NAD Eyes: No Scleral Icterus Ears/Nose/Mouth/Throat: Mucous Membranes Moist Neck: NL Appearance and Movements; NL JVP, Trachea Midline Respiratory: Symmetrical Chest Expansion and Respiratory Effort, Clear to Auscultation Cardiovascular: NL Sounds; No Murmurs; No JVD, RRR Abdominal: - - Soft, tender to palpation to RUQ and LUQ Extremities: No Edema Skin: No Rash or Ulcers Neurological: Alert and Oriented x 3, NL Sensation Lines/Tubes/Other Access: Clean, Dry and Intact Peripheral IV Nutrition: Taking PO's Result Diagrams: 06/01/18 05:55 06/01/18 05:55 Assess/Plan/Problems-Billing Assessment: Ms. Vela is a 77yo with PMH of CAD w/ [place], bowel perforation s/p resection in 2014, TIA, HTN, and HLD who presented to the ED with c/o abd pain and diarrhea and was found to have cholecystitis. - Patient Problems (1) Cholecystitis Current Visit: Yes Status: Acute Code(s): K81.9 - CHOLECYSTITIS, UNSPECIFIED SNOMED Code(s): 83568135 Comment: - Positive Bravo's sign - WBC improving - Tolerating clear liquids well - US shows findings concerning for acute cholecystitis - Appreciate surgical consult; recommend continuing antibiotics as she will need to be off plavix for at least 1 week prior to surgery - Continue zosyn (2) Elevated lipase Current Visit: Yes Status: Acute Code(s): R74.8 - ABNORMAL LEVELS OF OTHER SERUM ENZYMES SNOMED Code(s): 986537423 Comment: - Greater than 3x normal - Suspect this is reactive, 2/2 acute cholecystitis as she does not have classic presentation for pancreatitis and CT was unremarkable for pancreatitis (3) Hypertension Current Visit: No Status: Acute Code(s): I10 - ESSENTIAL (PRIMARY) HYPERTENSION SNOMED Code(s): 12245983 Comment: - Normotensive - Continue diltiazem (4) Coronary artery disease Current Visit: No Status: Chronic Code(s): I25.10 - ATHSCL HEART DISEASE OF [place] CORONARY ARTERY W/O ANG PCTRS SNOMED Code(s): 46674469 Comment: - Asymptomatic - Will need outpatient cardiology f/u for preop clearance (5) History of TIA (transient ischemic attack) Current Visit: No Status: Acute Comment: - Hold plavix (6) Hyperlipidemia Current Visit: Yes Status: Acute Code(s): E78.5 - HYPERLIPIDEMIA, UNSPECIFIED SNOMED Code(s): 64478361 Comment: - Continue atorvastatin (7) DVT prophylaxis Current Visit: No Status: Acute Code(s): SHV1847 - SNOMED Code(s): 855672938 Comment: - Heparin SQ (8) Full code status Current Visit: No Status: Acute Code(s): Z78.9 - OTHER SPECIFIED HEALTH STATUS SNOMED Code(s): 482924834 Comment: Status and Disposition: Inpatient for acute cholecystitis. Anticipate d/c home when medically stable. Will likely need to schedule outpatient cholecystectomy. Attending: Chin Haji
[2018-06-02] MEDS: ZOSYN 3.375 GM Q8H per EXTENDED INFUSION IVPB SCH ×6 (04:59→21:32)
[2018-06-02] MEDS: Acetaminophen TAB* 325 MG PO PRN ×2 (05:42→21:39)
[2018-06-02] MEDS: Heparin VIAL(*) 5000 UNITS/ML VIAL (FIVE THOUSAND) SUBCUT SCH ×3 (05:43→21:34)
--- NOTE | 2018-06-02 05:56 | PN ---
Hospitalist Progress Note Date of Service: 06/02/18 got called that pt developed swelling of left arm on the iv site ----> asked staff to look for another iv site once it is established will take out left arm iv site us of arm ordered to r/o dvt in am
[2018-06-02 05:57] LABS: ABS Basophils 0 10^3/ul (0-0.2); ABS Eosinophils 0.2 10^3/ul (0-0.6); ABS Lymphocytes 1.1 10^3/ul (1.0-4.8); ABS Monocytes 0.4 10^3/ul (0-0.8); ABS Neutrophils 5.8 10^3/ul (1.5-7.7); ABS Nucleated RBC 0 10^3/ul; Eosinophil % 2.1 %; Hematocrit 36 % (35-47); Hemoglobin 11.7 g/dl (12.0-16.0); Lymphocyte % 14.7 %; Mean Corpuscular HGB Conc 33 g/dl (31-36); Mean Corpuscular Hemoglobin 31 pg (27-31); Mean Corpuscular Volume 93 fL (80-97); Mean Platelet Volume 8.7 fL (7.4-10.4); Nucleated Red Blood Cells % 0; Platelet Count 173 10^3/ul (150-450); Red Blood Count 3.85 10^6/ul (4.00-5.40); Red Cell Distribution Width 14 % (10.5-15); White Blood Count 7.5 10^3/ul (3.5-10.8)
[2018-06-02 07:04] LABS: Calcium 7.8 mg/dL (8.6-10.3); Potassium 3.2 mmol/L (3.5-5.0)
[2018-06-02 07:10] LABS: BUN/Creatinine Ratio 10.7 (8-20); EGFR Non-African American 74.5 (>60)
[2018-06-02] MEDS: NS 0.9% 1000 ML* 1,000 ML IV SCH ×2 (08:13→17:12)
[2018-06-02] MEDS: Diltiazem CD CAP* 120 MG PO SCH (09:38)
[2018-06-02] MEDS: KCL 20 MEQ/100 ML IVPREMIX* 20 MEQ/100 ML BAG IV SCH ×2 (09:38→13:19)
[2018-06-02] MEDS: Atorvastatin* 40 MG TAB PO SCH (09:38)
--- NOTE | 2018-06-02 13:31 | PN ---
Subjective Date of Service: 06/02/18 Interval History: Ms. Vela is feeling about the same today as yesterday. She has been tolerating clear liquids without difficulty. Denies CP, SOB, N/V/D. No BM since admission. She has been up ambulating. No abd pain, but significant tenderness. Family History: Unchanged from Admission Social History: Unchanged from Admission Past Medical History: Unchanged from Admission Objective Active Medications: Acetaminophen (Tylenol Tab*) 650 mg PO Q4H PRN FEVER/PAIN Al Hydrox/Mg Hydrox/Simethicone (Maalox Plus*) 30 ml PO Q6H PRN INDIGESTION Atorvastatin Calcium (Lipitor*) 40 mg PO DAILY HELLEN Diltiazem HCl (Cardizem Cd Cap*) 120 mg PO DAILY HELLEN Docusate Sodium (Colace Cap*) 100 mg PO BID PRN CONSTIPATION Heparin Sodium (Porcine) (Heparin Vial(*)) 5,000 units SUBCUT Q8HR HELLEN Sodium Chloride (Ns 0.9% 1000 Ml*) 1,000 mls @ 125 mls/hr IV PER RATE HELLEN Piperacillin Sod/Tazobactam (Sod 3.375 gm/ Sodium Chloride) 100 mls @ 25 mls/ hr IVPB Q8H HELLEN Ibuprofen (Motrin Tab*) 600 mg PO Q6H PRN PAIN Morphine Sulfate (Morphine Vial*) 2 mg IV Q4H PRN PAIN - MILD Ondansetron HCl (Zofran Inj*) 4 mg IV Q4H PRN NAUSEA/VOMITING Pharmacy Consult (Zosyn Per Pharmacy*) 1 note FOLLOW UP .ZOSYN PER PHARMACY HELLEN Senna (Senokot Tab*) 1 tab PO BID PRN CONSTIPATION Vital Signs - 8 hr 06/02/18 07:22 Temperature 97.7 F Pulse Rate 65 Respiratory 16 Rate Blood Pressure 125/47 (mmHg) O2 Sat by Pulse 96 Oximetry Oxygen Devices in Use Now: None Appearance: Elderly female sitting in bed in NAD Eyes: No Scleral Icterus Ears/Nose/Mouth/Throat: Mucous Membranes Moist Neck: NL Appearance and Movements; NL JVP, Trachea Midline Respiratory: Symmetrical Chest Expansion and Respiratory Effort, Clear to Auscultation Cardiovascular: NL Sounds; No Murmurs; No JVD, RRR Abdominal: - - Nondistended; Tender to RUQ and LUQ Extremities: No Edema Skin: No Rash or Ulcers Neurological: Alert and Oriented x 3, NL Sensation Lines/Tubes/Other Access: Clean, Dry and Intact Peripheral IV Nutrition: Taking PO's Result Diagrams: 06/02/18 05:31 06/02/18 05:31 Assess/Plan/Problems-Billing Assessment: Ms. Vela is a 77yo with PMH of CAD w/ [place], bowel perforation s/p resection in 2014, TIA, HTN, and HLD who presented to the ED with c/o abd pain and diarrhea and was found to have cholecystitis. - Patient Problems (1) Cholecystitis Current Visit: Yes Status: Acute Code(s): K81.9 - CHOLECYSTITIS, UNSPECIFIED SNOMED Code(s): 23529668 Comment: - Positive Bravo's sign - WBC improving - US shows findings concerning for acute cholecystitis - Appreciate surgical consult; recommend continuing antibiotics as she will need to be off plavix for at least 1 week prior to surgery - Advance to low fat diet - Continue zosyn (2) Elevated lipase Current Visit: Yes Status: Acute Code(s): R74.8 - ABNORMAL LEVELS OF OTHER SERUM ENZYMES SNOMED Code(s): 466289989 Comment: - Remains elevated; greater than 3x normal - Suspect this is reactive, 2/2 acute cholecystitis as she does not have classic presentation for pancreatitis and CT was unremarkable for pancreatitis (3) Hypertension Current Visit: No Status: Acute Code(s): I10 - ESSENTIAL (PRIMARY) HYPERTENSION SNOMED Code(s): 50461832 Comment: - Normotensive - Continue diltiazem (4) Coronary artery disease Current Visit: No Status: Chronic Code(s): I25.10 - ATHSCL HEART DISEASE OF [place] CORONARY ARTERY W/O ANG PCTRS SNOMED Code(s): 02498868 Comment: - Asymptomatic - Will need outpatient cardiology f/u for preop clearance (5) History of TIA (transient ischemic attack) Current Visit: No Status: Acute Comment: - Hold plavix (6) Hyperlipidemia Current Visit: Yes Status: Acute Code(s): E78.5 - HYPERLIPIDEMIA, UNSPECIFIED SNOMED Code(s): 38320266 Comment: - Continue atorvastatin (7) DVT prophylaxis Current Visit: No Status: Acute Code(s): CCK7008 - SNOMED Code(s): 918648311 Comment: - Heparin SQ (8) Full code status Current Visit: No Status: Acute Code(s): Z78.9 - OTHER SPECIFIED HEALTH STATUS SNOMED Code(s): 048579303 Comment: Status and Disposition: Inpatient for acute cholecystitis. Anticipate d/c home when medically stable. Will likely need to schedule outpatient cholecystectomy. Attending: Chin Haji
--- NOTE | 2018-06-02 13:51 | PN ---
Progress Note - Progress Note Date of Service: 06/02/18 Note: Cholecystitis Afeb, VS OK Pain better No N/V Abd soft, mixing machine tender RUQ, no peritonitis mixing machine tender cork rod low epigastrium (over pancreas?) WBC normal, Lipase unchanged Cont abx Plan lap daljit once off plavix 5-10 d
[2018-06-03] MEDS: NS 0.9% 1000 ML* 1,000 ML IV SCH (01:10)
[2018-06-03 05:08] LABS: ABS Basophils 0 10^3/ul (0-0.2); ABS Eosinophils 0.3 10^3/ul (0-0.6); ABS Lymphocytes 1.4 10^3/ul (1.0-4.8); ABS Monocytes 0.4 10^3/ul (0-0.8); ABS Neutrophils 3.5 10^3/ul (1.5-7.7); ABS Nucleated RBC 0 10^3/ul; Eosinophil % 4.9 %; Hematocrit 35 % (35-47); Hemoglobin 11.6 g/dl (12.0-16.0); Lymphocyte % 25.3 %; Mean Corpuscular HGB Conc 34 g/dl (31-36); Mean Corpuscular Hemoglobin 31 pg (27-31); Mean Corpuscular Volume 93 fL (80-97); Mean Platelet Volume 8.7 fL (7.4-10.4); Nucleated Red Blood Cells % 0; Platelet Count 177 10^3/ul (150-450); Red Blood Count 3.72 10^6/ul (4.00-5.40); Red Cell Distribution Width 14 % (10.5-15); White Blood Count 5.6 10^3/ul (3.5-10.8)
[2018-06-03] MEDS: Heparin VIAL(*) 5000 UNITS/ML VIAL (FIVE THOUSAND) SUBCUT SCH ×2 (05:22→13:36)
[2018-06-03] MEDS: ZOSYN 3.375 GM Q8H per EXTENDED INFUSION IVPB SCH ×4 (05:22→13:35)
[2018-06-03 05:24] LABS: BUN/Creatinine Ratio 11.3 (8-20); EGFR Non-African American 79.4 (>60); Potassium 3.4 mmol/L (3.5-5.0)
--- NOTE | 2018-06-03 08:27 | PN ---
Progress Note - Progress Note Date of Service: 06/03/18 Note: Cholecystitis Afeb Feels well No N/V Minimal pain Abd soft, long chain quiller tender right subcostal and epigastrium, though less than yest. No peritonitis, No Bravo's sign Impr: Cholecystitis improving Consider discharge on oral antibiotics Plan elective/urgent lap daljit as outpatient next week Stay off plavix until surgery.
[2018-06-03] MEDS ORDERED: Potassium Chlor TAB* 20 MEQ TAB.ER PO ONE (08:31)
[2018-06-03] MEDS: Diltiazem CD CAP* 120 MG PO SCH (09:50)
[2018-06-03] MEDS: Atorvastatin* 40 MG TAB PO SCH (09:50)
[2018-06-03 11:47] VITALS: BP 143/64
--- NOTE | 2018-06-04 03:09 | DS ---
CC: Dr. Misha Joshi; Dr. Jerardo Carranza * DISCHARGE SUMMARY: DATE OF ADMISSION: 05/31/18 DATE OF DISCHARGE: 06/03/18 PRIMARY CARE PROVIDER: Dr. Misha Joshi. SURGEON: Dr. Jerardo Carranza. ATTENDING PHYSICIAN: Dr. Charleen Parson * (dictated by Yaima Kinsey NP). PRIMARY DIAGNOSES: 1. Cholecystitis. 2. Elevated lipase. 3. Sepsis. SECONDARY DIAGNOSES: 1. Hypertension. 2. Coronary artery disease. 3. History of transient ischemic attack. 4. Hyperlipidemia. STUDIES WHILE IN THE HOSPITAL: 1. Abdomen pelvis CT on 05/31/18 reads as cholelithiasis and findings of acute cholecystitis. No biliary dilation evident. 2. Abdomen ultrasound on 06/01/18 reads as cholelithiasis with findings that could be associated with acute cholecystitis including trace pericholecystic fluid and a reported positive sonographic Bravo's sign. An immobile and avascular soft tissue nodule in the lumen of the gallbladder is morphologically most consistent with adenomyomatosis. 3. Left arm venous Doppler study on 06/02/18 reads as no evidence for deep vein thrombosis. CONSULTATIONS WHILE IN THE HOSPITAL: 1. The patient was seen in consultation by Dr. Carranza from surgery on 06/01/18 for acute cholecystitis. HISTORY OF PRESENT ILLNESS AND HOSPITAL COURSE: Ms. Vela is a 77-year-old female with a past medical history of CAD, hypertension, hyperlipidemia, and previous TIA, who presented to the emergency room on 05/31/18 with complaints of abdominal pain. Please see the history and physical by Dr. Victor for a complete summary of the events leading up to this hospitalization. In short, the patient had woken up during the night with abdominal pain. She felt sick to her stomach and developed chills and significant epigastric pain. There was no nausea or vomiting. She did have one episode of diarrhea. She presented to the emergency room because of the concern for unrelieved pain in the emergency room. She had imaging as noted above, which indicated acute cholecystitis. In addition, she had an elevated lipase at 327. The patient was admitted by the hospitalist service. It was noted that the patient was not a candidate for cholecystectomy as she is currently on Plavix for her history of CAD and TIA. Therefore, she was placed on Zosyn and a clear liquid diet. The patient did meet criteria for severe sepsis on arrival with fever, tachycardia, leukocytosis, and an elevated lactic acid. Her symptoms resolved with IV fluids and antibiotics. She continued to have significant abdominal pain, though no nausea or vomiting, on clear liquids. She was eventually transitioned to a low-fat diet on 06/02/18 and tolerated that well. Per surgical recommendations, she will need to be off Plavix for at least 1 week prior to any surgical intervention. I will note that the patient has also had an elevated lipase greater than 3 times normal. I suspect that this is reactive, secondary to acute cholecystitis. She did not have the classic presentation for pancreatitis and has been tolerating oral intake, and so there was not a concern for gallstone pancreatitis. As of the day of discharge, the patient reports feeling well. She does have some mild epigastric tenderness to palpation, though no abdominal pain at rest. Tenderness has improved significantly. She denies any nausea or vomiting and has been tolerating a low-fat diet well. She has been off IV fluids and there are no concerns for dehydration. White blood count has resolved to 5.6 (was 16.5 on admission). There was no growth on blood cultures. Dr. Carranza felt as though she was stable for discharge on oral antibiotics and should follow up with a lap daljit as a patient next week. She should remain off Plavix until that time. The patient is feeling well and is anxious to return to home. Ms. Vela is stable for discharge today. Vital signs are as follows: Temp 97.9 , heart rate 71, respiratory rate 16, oxygen saturation 98% on room air, blood pressure 143/64. DISCHARGE MEDICATIONS: New medications: 1. Augmentin 500 mg p.o. b.i.d. x10 days. 2. Ondansetron 4 mg p.o. q.6 hours p.r.n. nausea, vomiting. Continued medications: 1. Atorvastatin 40 mg p.o. daily. 2. Diltiazem 120 mg p.o. daily. 3. Acetaminophen 650 mg p.o. q.8 hours p.r.n. pain. 4. Alendronate sodium 70 mg p.o. weekly. Discontinued medications: 1. Plavix. DISCHARGE PLAN: Ms. Vela will be discharged to home. Activity will be as tolerated. Diet will be low fat. Medications are noted above. The patient has been prescribed a 10-day course of Augmentin to complete a total of 14 days of antibiotic therapy for acute cholecystitis. Additionally, she has been prescribed Zofran for any nausea. She has been advised to not take her Plavix until after surgery when advised by her surgeon. She will need to follow up with her primary care provider prior to surgery for preop clearance. I have made an appointment for her with Dr. Carranza for 06/05/18 at 11 a.m. during which time she may schedule her lap daljit. The patient has been advised to return to the emergency room or nearest hospital for any worsening of symptoms, shortness of breath, lightheadedness, dizziness, chest discomfort, high fevers, chills, night sweats, loss of consciousness, or any other worrisome signs or symptoms. This is a summarized report of a complex medical history and hospital stay. For further details, please see the entire medical record. TIME SPENT: Approximately 40 minutes was spent on this discharge, greater than half of that time spent [id number] with the patient discussing discharge plans and instructions. YAIMA KINSEY, LEISA [id number]/CPS #: [id number] STEPHANE
== END 2018-06-03 16:30 | disposition home or self-care (01) | DRG 446 ==
LOC: ED 13:58 → SSU 16:54
PROVIDERS: ADMIT Pediatrics; ATTEND Internal Medicine
DX: K80.00 Calculus of gallbladder with acute cholecystitis without obstruction (principal); I10 Essential (primary) hypertension; I25.10 Atherosclerotic heart disease of native coronary artery without angina pectoris; E78.5 Hyperlipidemia, unspecified; I25.2 Old myocardial infarction; M81.0 Age-related osteoporosis without current pathological fracture; J44.9 Chronic obstructive pulmonary disease, unspecified; M19.90 Unspecified osteoarthritis, unspecified site; Z87.891 Personal history of nicotine dependence; Z86.73 Personal history of transient ischemic attack (TIA), and cerebral infarction without residual deficits; Z80.1 Family history of malignant neoplasm of trachea, bronchus and lung; Z90.89 Acquired absence of other organs; Z86.010 Personal history of colon polyps; Z98.42 Cataract extraction status, left eye; Z98.41 Cataract extraction status, right eye
CPT/HCPCS: 36415; 74176; 76705; 80048; 80053; 83605; 83690; 84484; 85025; 85610; 86140; 87040; 93005; 99285; A9270-GY; J1644; J1885; J2405; J2543; J3480

== ENCOUNTER 2018-06-10 10:49 | Day surgery (SDC) | payer MEDICARE, BC ==
[~2018-06-10 10:49] MED LIST: Buffered Lidocaine 0.9% SYRIN* 5 ML/SYR SYRINGE INTRADERM ONE; Dexamethasone TAB* 4 MG PO ONE; DiMENhydriNATE IV* 50 MG/ML VIAL IV PUSH PRN; Famotidine IV* 10 MG/ML 2 ML (20 mg) IV ONE; Lactated Ringers 1000 ML Bag* 1,000 ML IV SCH; Morphine VIAL* 4 MG/ML VIAL (1 ml vial) IV PRN; Naloxone* 0.4 MG/ML 1 ML VIAL IV PRN; Ondansetron TAB* 4 MG PO ONE; PROCHLORPERAZINE INJ 5 MG/ML 2 ML VIAL IV PRN; fentaNYL* 50 MCG/ML 2 ML VIAL (100 MCG VIAL) IV PRN
[2018-06-10] MEDS ORDERED: Famotidine IV* 10 MG/ML 2 ML (20 mg) ONE (11:23)
[2018-06-10] MEDS ORDERED: Ondansetron ODT TAB* 4 MG ONE (11:23)
[2018-06-10] MEDS ORDERED: Dexamethasone TAB* 4 MG ONE (11:24)
[2018-06-10] MEDS ORDERED: Ketorolac INJ* 30 MG/ML 1 ML VIAL ONE (11:25)
[2018-06-10] MEDS ORDERED: ceFAZolin 2 GM PREMIX in ORs 2 GM/50 ML BAG IVPB ONE (11:25)
[2018-06-10] MEDS ORDERED: fentaNYL* 50 MCG/ML 2 ML VIAL (100 MCG VIAL) ONE (11:37)
[2018-06-10] MEDS ORDERED: Midazolam* 1 MG/ML 2 ML VIAL (2 MG) ONE (11:37)
[2018-06-10] MEDS ORDERED: KETAMINE HCL* 50 MG/ML 10 ML VIAL ONE (11:37)
[2018-06-10] MEDS ORDERED: Bupivacaine 0.25% EPI 200,000* 30 ML SDV ONE (12:30)
[2018-06-10] MEDS ORDERED: Propofol* 10 MG/ML 20 ML BTL ONE (13:49)
[2018-06-10] MEDS ORDERED: Glycopyrrolate IV* 0.2 MG/ML 1 ML VIAL ONE (13:49)
[2018-06-10] MEDS ORDERED: Neostigmine Methylsulfate* 1 MG/ML 10 ML VIAL (1 mg/ml) ONE (13:49)
[2018-06-10] MEDS ORDERED: Lidocaine 2% PF * 5 ML VIAL ONE (13:49)
--- NOTE | 2018-06-10 13:57 | OP ---
Operative Report - Blank - Operative Report Date of Operation: 06/10/18 Note: Brief Operative Note Preop Dx: Cholecystitis Postop Dx: same Procedure: laparoscopic cholecystectomy Anesthesia: GET Surgeon: [facility]: HUNTER Simeon Fluids: 1100 ml crystalloid EBL: < 50 ml Specimen: gallbladder Drains: none Findings: dictated
[2018-06-10 16:09] VITALS: BP 156/70
--- NOTE | 2018-06-10 20:10 | OP ---
CC: Dr. Joshi * DATE OF OPERATION: 06/10/18 - [facility] DATE OF : 36 SURGEON: Jerardo Carranza MD CARDIOLOGIST: HUNTER Alvarez ANESTHESIOLOGIST: Jerardo Campuzano MD ANESTHESIA: General anesthetic, local infiltration. PRE-OP DIAGNOSIS: Acute on chronic cholecystitis. POST-OP DIAGNOSIS: Acute on chronic cholecystitis. OPERATIVE PROCEDURE: Laparoscopic cholecystectomy. DESCRIPTION OF PROCEDURE: The patient was supine on the operative table. After adequate general anesthetic, compression stockings, Mark Hugger warmer, and intravenous antibiotics, the abdomen was prepped with antiseptic, draped in a sterile fashion. Local infiltrative anesthesia was administered. A small umbilical incision was created. Direct dissection was carried into the peritoneal space and blunt port cannula placed under direct vision. The abdomen was insufflated. There were no adhesions in this region. Additional cannulae, 12-mm subxiphoid and 5-mm right upper quadrant and right anterior axillary line were placed with small stab wounds under direct vision. The gallbladder was distended, but not badly inflamed. Areolar tissue was easily taken down off with cystic duct and cystic artery. The common duct was identified and kept out of harm's way. Cystic duct and artery were each doubly clipped and divided. The gallbladder was taken off the liver bed using electrocautery. Hemostasis was good. The gallbladder was removed through the subxiphoid port without any spillage. Everything was in good condition. The pneumoperitoneum was allowed to escape. The umbilical fascia was closed with 0 Vicryl and skin with 5-0 Vicryl in all cases followed by Steri-Strips. She was awakened, extubated, and brought to Recovery in good condition. No complications. No drains. Pathologic specimen was gallbladder. Sponge and instrument counts correct. Estimated blood loss 30 mL. [id number]/[facility] #: [id number] [facility] HOSPITALBrittani
== END 2018-06-10 16:13 | disposition home or self-care (01) ==
LOC: OR 10:49
PROVIDERS: ATTEND Surgery
DX: K80.12 Calculus of gallbladder with acute and chronic cholecystitis without obstruction (principal); I25.10 Atherosclerotic heart disease of native coronary artery without angina pectoris; I25.2 Old myocardial infarction; Z87.891 Personal history of nicotine dependence; J44.9 Chronic obstructive pulmonary disease, unspecified; Z88.1 Allergy status to other antibiotic agents
CPT/HCPCS: 88304; A9270-GY; J0690; J1885; J2250; J2704; J2710; J3010; J8540